=== PATIENT | male | born 1960 | race Two or more races ===

== ENCOUNTER 2022-02-15 11:53 | Outpatient (REF) | payer MEDICARE, MEDICAID, SELFPAY ==
--- NOTE | ~2022-02-15 | XR_ITS ---
EXAMINATION: XR KNEE, RIGHT CLINICAL INFORMATION: Pain. COMPARISON: Right knee radiographs dated 1217. TECHNIQUE: Frontal, lateral and axial views of the right knee were submitted. FINDINGS: Bony alignment and mineralization are normal. The lateral, medial and patellofemoral joint space compartments are well-maintained. There is minimal peripheral osteophyte formation of the joint space compartment. There is no fracture, dislocation or right knee joint effusion. No foreign body is seen. XR/XR knee LT 3V IMPRESSION: 1. There is minimal osteoarthritic change of the medial joint space compartment of the right knee. 2. No fracture, dislocation or significant right knee joint effusion is seen. EXAMINATION: XR KNEE, LEFT CLINICAL INFORMATION: Pain. COMPARISON: Right knee radiographs dated 07/05/2018. TECHNIQUE: Frontal, lateral and axial views of the left knee were submitted. FINDINGS: Bony mineralization is normal. There is mild asymmetric narrowing of the medial joint space compartment, with peripheral osteophyte formation. The lateral and patellofemoral joint space compartments are well-maintained. There is a tiny peripheral osteophyte of the superior articular surface of the left patella. There is no fracture, dislocation or left knee joint effusion. No foreign body is seen. IMPRESSION: 1. There is very mild osteoarthritic change of the medial joint the left knee, and minimal osteoarthritic changes seen of the patellofemoral compartment. 2. No fracture, dislocation or significant left knee joint effusion is seen.
--- NOTE | ~2022-02-15 | XR_ITS ---
EXAMINATION: XR KNEE, RIGHT CLINICAL INFORMATION: Pain. COMPARISON: Right knee radiographs dated 1217. TECHNIQUE: Frontal, lateral and axial views of the right knee were submitted. FINDINGS: Bony alignment and mineralization are normal. The lateral, medial and patellofemoral joint space compartments are well-maintained. There is minimal peripheral osteophyte formation of the joint space compartment. There is no fracture, dislocation or right knee joint effusion. No foreign body is seen. XR/XR knee RT 3V IMPRESSION: 1. There is minimal osteoarthritic change of the medial joint space compartment of the right knee. 2. No fracture, dislocation or significant right knee joint effusion is seen. EXAMINATION: XR KNEE, LEFT CLINICAL INFORMATION: Pain. COMPARISON: Right knee radiographs dated 07/05/2018. TECHNIQUE: Frontal, lateral and axial views of the left knee were submitted. FINDINGS: Bony mineralization is normal. There is mild asymmetric narrowing of the medial joint space compartment, with peripheral osteophyte formation. The lateral and patellofemoral joint space compartments are well-maintained. There is a tiny peripheral osteophyte of the superior articular surface of the left patella. There is no fracture, dislocation or left knee joint effusion. No foreign body is seen. IMPRESSION: 1. There is very mild osteoarthritic change of the medial joint the left knee, and minimal osteoarthritic changes seen of the patellofemoral compartment. 2. No fracture, dislocation or significant left knee joint effusion is seen.
== END 2022-02-15 11:54 | disposition home or self-care (01) ==
LOC: HO.XRAY 11:53
PROVIDERS: PCP Internal Medicine Geriatric Medicine; Visit Provider Internal Medicine Geriatric Medicine
DX: M25.561 Pain in right knee (principal); M25.562 Pain in left knee
CPT/HCPCS: 73562

== ENCOUNTER 2022-03-01 11:22 | Emergency (ER) | payer MEDICARE, MEDICAID, SELFPAY ==
--- NOTE | ~2022-03-01 | XR_ITS ---
EXAMINATION: XR RIBS, BILATERAL CLINICAL INFORMATION: Fall with rib pain COMPARISON: CTA of November 10, 2016 and chest x-ray of January 03, 2016 TECHNIQUE: 3 views of the bilateral ribs were obtained. PA chest FINDINGS: There is a calcified granuloma seen within the right midlung. There is no evidence of acute parenchymal disease, pneumothorax, or pleural effusion. Heart normal size. No evidence of pulmonary edema. No acute displaced rib fracture is identified. XR/XR ribs BI min 4V w CXR1V IMPRESSION: No acute parenchymal disease within the chest. No acute displaced rib fracture identified.
[2022-03-01 12:20] VITALS: BP 110/64; PULSE 65; RESP 16; TEMP 36.9; O2SAT 96; BMI 35.5
[2022-03-01] MEDS: Ketorolac Tromethamine 30 MG/ML VIAL IM (13:45)
[2022-03-01] MEDS: Lidocaine 4 % Patch ADH..PATCH 1 PATCH TRANSDERMA (13:45)
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
== END 2022-03-01 15:31 | disposition home or self-care (01) ==
PROVIDERS: Emergency Provider Emergency Medicine Emergency Medical Services; PCP Internal Medicine Geriatric Medicine
DX: S20.212A Contusion of left front wall of thorax, initial encounter (principal); R07.81 Pleurodynia; W01.0XXA Fall on same level from slipping, tripping and stumbling without subsequent striking against object, initial encounter; Y93.9 Activity, unspecified; Y92.9 Unspecified place or not applicable; Y99.9 Unspecified external cause status; Z79.899 Other long term (current) drug therapy
CPT/HCPCS: 71111; 96372; 99283; 99284; J1885

== ENCOUNTER 2022-05-18 10:16 | Outpatient (REF) | payer MEDICARE, MEDICAID, SELFPAY ==
--- NOTE | ~2022-05-18 | XR_ITS ---
EXAMINATION: XR hand RT min 3V, XR hand LT min 3V CLINICAL INFORMATION: Reason for Exam PAIN COMPARISON: 03/11/2018 TECHNIQUE: 3 views of the bilateral hands XR/XR hand LT min 3V FINDINGS/IMPRESSION: * Punctate calcification along the dorsal aspect of the right wrist may reflect degenerative change versus a triquetral fracture. Correlate with point tenderness * Severe narrowing of the right radiocarpal joint with osteophytosis, progressed from prior study. * Severe degenerative changes of the left first CMC joint. * No soft tissue abnormality.
--- NOTE | ~2022-05-18 | XR_ITS ---
EXAMINATION: XR hand RT min 3V, XR hand LT min 3V CLINICAL INFORMATION: Reason for Exam PAIN COMPARISON: 03/11/2018 TECHNIQUE: 3 views of the bilateral hands XR/XR hand RT min 3V FINDINGS/IMPRESSION: * Punctate calcification along the dorsal aspect of the right wrist may reflect degenerative change versus a triquetral fracture. Correlate with point tenderness * Severe narrowing of the right radiocarpal joint with osteophytosis, progressed from prior study. * Severe degenerative changes of the left first CMC joint. * No soft tissue abnormality.
== END 2022-05-18 10:17 | disposition home or self-care (01) ==
LOC: HO.XRAY 10:16
PROVIDERS: PCP Internal Medicine Geriatric Medicine; Visit Provider Internal Medicine Geriatric Medicine
DX: M79.641 Pain in right hand (principal); M79.642 Pain in left hand
CPT/HCPCS: 73130

== ENCOUNTER 2022-05-18 10:47 | Emergency (ER) | payer OTHER, MEDICAID, MEDICARE, SELFPAY ==
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
[2022-05-18 12:21] VITALS: BP 125/80; PULSE 70; RESP 16; TEMP 36.6; O2SAT 97; BMI 36.2
[2022-05-18] MEDS: Acetaminophen 325 MG TABLET 650 MG PO (12:29)
[2022-05-18 15:45] VITALS: BP 126/75; PULSE 66; RESP 18; TEMP 36.1; O2SAT 95
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
[2022-05-18] MEDS: Ibuprofen 600 MG TABLET PO (19:28)
== END 2022-05-18 20:46 | disposition home or self-care (01) ==
PROVIDERS: Emergency Provider Emergency Medicine; PCP Internal Medicine Geriatric Medicine
DX: S13.4XXA Sprain of ligaments of cervical spine, initial encounter (principal); S39.012A Strain of muscle, fascia and tendon of lower back, initial encounter; M54.2 Cervicalgia; V43.52XA Car driver injured in collision with other type car in traffic accident, initial encounter; Y93.9 Activity, unspecified; Y92.410 Unspecified street and highway as the place of occurrence of the external cause; Y99.9 Unspecified external cause status
CPT/HCPCS: 72040; 72100; 99283

== ENCOUNTER 2022-10-05 17:44 | Outpatient (REF) | payer MEDICARE, MEDICAID, SELFPAY ==
--- NOTE | ~2022-10-05 | MR_ITS ---
EXAMINATION: MR KNEE WITHOUT CONTRAST, RIGHT CLINICAL INFORMATION: Chronic instability, pain. COMPARISON: Radiographs 02/15/2022. TECHNIQUE: MRI of the knee without contrast was performed using routine sequences on a high-field scanner. FINDINGS: MENISCI: Medial Meniscus: Ill-defined degenerative partial tearing at the root of the posterior horn and mild inner margin tearing of the posterior horn extending to the meniscal body which is extruded. There is a 1.1 cm meniscal fragment or loose body between the medial femoral condyle and PCL. Lateral Meniscus: Intact. LIGAMENTS: Cruciate: Intact. Collateral: Intact. EXTENSOR MECHANISM: Intact. ARTICULAR CARTILAGE/BONE: Patellofemoral Compartment: Partial-thickness cartilage loss of the central trochlea and areas of mild cartilage thinning and surface irregularity of the patella. Marginal osteophytes. Medial Compartment: Cartilage thinning and surface irregularity with areas of near full-thickness loss throughout the weightbearing aspect with marginal osteophytes. Small subchondral cysts and marrow edema of the posterior nonweightbearing femoral condyle. Lateral Compartment: Small marginal osteophytes. JOINT FLUID AND BURSAE: Moderate joint effusion with mild synovitis. MR/MR knee RT wo con IMPRESSION: 1. Ill-defined degenerative partial tearing at the root of the posterior horn of the medial meniscus and mild inner margin tearing of the posterior horn extending to the meniscal body which is extruded. 2. Moderate medial and mild patellofemoral/lateral compartment osteoarthritis. Moderate joint effusion.
== END 2022-10-05 17:45 | disposition home or self-care (01) ==
LOC: HO.MRI 17:44
PROVIDERS: PCP Internal Medicine Geriatric Medicine; Visit Provider Internal Medicine Geriatric Medicine
DX: M23.51 Chronic instability of knee, right knee (principal)
CPT/HCPCS: 73721

== ENCOUNTER → 2023-01-31 09:02 | Outpatient (BNVA) | payer MEDICARE, MEDICAID, SELFPAY | PROVIDERS: PCP Internal Medicine Geriatric Medicine; Visit Provider Orthopaedic Surgery | DX: S83.241A Other tear of medial meniscus, current injury, right knee, initial encounter (principal) | CPT/HCPCS: 99202 ==

== ENCOUNTER 2023-02-27 09:45 | Outpatient (REF) | payer MEDICARE, MEDICAID, SELFPAY ==
--- NOTE | ~2023-02-27 | XR_ITS ---
EXAMINATION: XR WRIST, RIGHT CLINICAL INFORMATION: Pain COMPARISON: April 2022 TECHNIQUE: PA, lateral, and oblique views of the right wrist. FINDINGS: There is persistent narrowing of radiocarpal joint medially and there is cystic spaces in the scaphoid. No evidence of fractures or progression of changes of osteoarthritis. XR/XR wrist RT min 3V IMPRESSION: Osteoarthritis in the medial compartment of radiocarpal joint on the right
== END 2023-02-27 09:46 | disposition home or self-care (01) ==
LOC: HO.HOSX 09:45
PROVIDERS: Visit Provider Orthopaedic Surgery
DX: M19.031 Primary osteoarthritis, right wrist (principal)
CPT/HCPCS: 73110

== ENCOUNTER 2023-02-27 09:45 | Outpatient (AMB) | payer MEDICARE, MEDICAID, SELFPAY ==
[2023-02-27 09:52] VITALS: BMI 37.7
--- NOTE | 2023-02-27 09:52 | A.OFFVIS_ITS ---
Intake Vital Signs 02/27/23 09:52 Height 5 ft 11 in Weight 270 lb BMI 37.7 Intake Visit Reasons: New problem- Trigger finger Rt Intake Note: Sebastien 62 yr old left hand dominant male presents today for a new problem visit for his right index and middle finger locking. States his fingers started to lock about 2 yrs ago and has worsen with time. States he has pain when it locks at his MC. Patient has tried topical pain cream and wears a splint as needed. Also he is having numbness and tingling that worsens at night and has intermittent numbness through out the day. Patient would like to discuss injection vs surgical intervention. No EMG done. Allergies penicillin G [Penicillin G] Allergy (Mild, Verified 02/27/23 10:01) POSITIVE SKIN TEST penicillin V Allergy (Unknown, Verified 02/27/23 10:01) Unknown HPI New problem- Trigger finger Rt HPI Details Sebastien is a 62 year old right hand dominant [place] speaking man who presents with complaints of right wrist pain Initially he presented with complaints of painful locking of his fingers, but when asked today he was unable to specify which fingers were locking, and he was not able to make them lock today in clinic. Upon further discussion this sounds more like stiffness in his fingers mostly in the mornings. He complains of pain in his right wrist with activity, as well as a bump on the dorsal aspect of his wrist that is somewhat tender. He also complains of numbness and tingling in both of his hands. Symptoms intermittent, but daily, worse at night and first thing in the morning. 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 Review of Systems Const All systems reviewed & are unremarkable except as noted in HPI and below Physical Exam Vital Signs: BMI result Body Mass Index 37.7 Const General: cooperative, healthy appearing and no acute distress Orientation/consciousness: patient oriented x3 HEENT Head: Yes normocephalic and Yes atraumatic Eyes EOM: EOMs intact bilaterally Resp Effort & Inspection: normal respiratory effort and able to speak in complete sentences Cardio Jugular venous distension: no JVD Skin General skin exam: turgor normal Rashes: no rashes Neuro General: patient oriented x3 Extrem Other: Evaluation of Right Upper Extremity: The patient is alert, oriented, and in no acute distress Neuro: Median, Ulnar, Radial nerves motor and sensory grossly intact and sensation is normal to the tips of all digits today in clinic No thenar or intrinsic wasting Good APB muscle belly firing and good finger cross Vascular: Cap refill brisk ROM: He can make a fist and extend all of his digits bilaterally and had no locking or catching. He has ~15-20 degrees wrist extension He has ~35 degrees wrist flexion Skin: No lacerations or abrasions. General: No Ecchymosis. No Erythema or evidence of infection. There is a bump her some swelling over the dorsal aspect of his right wrist. It is unclear whether this is a ganglion, or perhaps some synovitis from an underlying wrist issue. Radiographs: Three views of the right hand from 05/18/2022 were reviewed by me today in clinic. Most note zeenat appears to have a scaphoid fracture nonunion with significant radiocarpal arthritis in the radial portion of the radioscaphoid joint in other words he has a SNAC wrist deformity. He has also got some early basal joint arthritis, and D IP joint arthritis particularly in the right index finger. Three views of the left hand from 05/18/2022 were also reviewed by me today in clinic. Most no were the is his left basal joint osteoarthritis with near complete loss of the basal joint, subluxation, subchondral sclerosis and osteophyte formation. He has more mild generalized arthritic changes in the MCP and IP joints of both hands. 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 Bilateral hand numbness and tingling Symptoms intermittent, but daily, worse at night I ordered a NCS to assess for peripheral neuropathy vs cervical radiculopathy He will follow up when completed for review 2. Right SNAC wrist deformity Evidence of an old scaphoid non-union with wrist OA 3. Left Basal joint osteoarthritis Near complete loss of joint space 4. Generalized Bilateral hand osteoarthritis In multiple MCP & IP joints, fairly mild I educated him about these condition I ordered radiographs of his right wrist today for review We can discuss this at his next appointment Scribed for Aisha Payton MD by Rudy Dias, medical massage therapist, on 02/27/23 at 10:40 AM, EST. 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
== END 2023-02-27 10:52 | disposition home or self-care (01) ==
PROVIDERS: Visit Provider Orthopaedic Surgery
DX: M19.041 Primary osteoarthritis, right hand (principal); M19.042 Primary osteoarthritis, left hand; M19.131 Post-traumatic osteoarthritis, right wrist; S62.001K Unspecified fracture of navicular [scaphoid] bone of right wrist, subsequent encounter for fracture with nonunion; M18.12 Unilateral primary osteoarthritis of first carpometacarpal joint, left hand
CPT/HCPCS: 99213

== ENCOUNTER 2023-03-07 12:57 | Outpatient (REF) | payer MEDICARE, MEDICAID, SELFPAY ==
--- NOTE | 2023-03-07 | EMG_ITS ---
Please see EMG / Nerve Conduction Report. MTDD
--- NOTE | 2023-03-07 14:50 | P.EMGPH_ITS ---
Physiatry - EMG/NCS EMG/NCS Chief complaint: Bilateral hand numbness for the last 1-2 years especially at night Reason for referral: Evaluate for neuropathy versus radiculopathy Referred by: Dr. Payton Procedure done: Bilateral upper extremities nerve conduction Precautions and/or limitations: History of diabetes with chronic numbness of both hands and feet The limb temperature was monitored continuously and remained between 32-36 degrees C during the performance of the NCS. FINDINGS: Bilateral median motor nerves showed prolonged distal latency, small amplitude but normal conduction velocity. Bilateral median and ulnar sensory nerves showed absent responses. All other nerves tested were within normal. No conduction block on ulnar nerves at the elbow. Radial sensory nerves were within normal. Nerve Conduction Studies Anti Sensory Summary Table ?Stim Site NR Onset (ms) Norm Onset (ms) Peak (ms) Norm Peak (ms) O-P Amp (?V) Norm O-P Amp Site1 Site2 Delta-0 (ms) Dist (cm) Edgar (m/s) Norm Edgar (m/s) Left Median Anti Sensory (2nd Digit) Wrist NR <3.6 >10 Wrist 2nd Digit 14.0 Right Median Anti Sensory (2nd Digit) Wrist NR <3.6 >10 Wrist 2nd Digit 14.0 Left Radial Anti Sensory (Thumb) Forearm ? 2.0 2.3 <3.1 3.3 Forearm Thumb 2.0 0.0 Right Radial Anti Sensory (Thumb) Forearm ? 1.9 2.5 <3.1 12.9 Forearm Thumb 1.9 0.0 Left Ulnar Anti Sensory (5th Digit) Wrist NR <3.7 >15.0 Wrist 5th Digit 14.0 Right Ulnar Anti Sensory (5th Digit) Wrist NR <3.7 >15.0 Wrist 5th Digit 14.0 Motor Summary Table ?Stim Site NR Onset (ms) Norm Onset (ms) O-P Amp (mV) Norm O-P Amp iAmp (mV) Amp (1st) (%) Site1 Site2 Delta-0 (ms) Dist (cm) Edgar (m/s) Norm Edgar (m/s) Left Median Motor (Abd Poll Brev) Wrist ? 8.7 <3.9 1.4 >4.5 1.6 100.0 Wrist Abd Poll Brev 8.7 0.0 Elbow ? 12.3 2.1 2.1 150.0 Elbow Wrist 3.6 20.0 56 >45 Right Median Motor (Abd Poll Brev) Wrist ? 6.1 <3.9 2.7 >4.5 3.4 100.0 Wrist Abd Poll Brev 6.1 0.0 Elbow ? 9.1 4.2 5.2 155.6 Elbow Wrist 3.0 21.0 70 >45 Left Ulnar Motor (Abd Dig Minimi) Wrist ? 3.0 <3.0 7.7 >5 9.5 100.0 Wrist Abd Dig Minimi 3.0 0.0 B Elbow ? 6.5 7.0 9.3 90.9 B Elbow Wrist 3.5 16.0 46 >45 A Elbow ? 8.0 7.4 9.8 96.1 A Elbow B Elbow 1.5 10.0 67 >45 Right Ulnar Motor (Abd Dig Minimi) Wrist ? 2.8 <3.0 5.2 >5 6.5 100.0 Wrist Abd Dig Minimi 2.8 0.0 B Elbow ? 6.5 3.1 3.8 59.6 B Elbow Wrist 3.7 18.5 50 >45 A Elbow ? 8.4 3.2 4.2 61.5 A Elbow B Elbow 1.9 10.0 53 >45 IMPRESSION: 1. This is an abnormal study. 2. There is electrodiagnostic suggestive for bilateral moderate-severe median neuropathy at the wrist. 3. Ulnar sensory nerves were absent but there was no conduction block across the elbow. CLINICAL COMMENT: Consider lower extremity testing to rule out polyneuropathy. Thank you for your kind referral. Brunilda Choi MD, CHER Board Certified, [place] Board of Physical Medicine and Rehabilitation (ABPMR) Board Certified, [place] Board of Electrodiagnostic Medicine (ABEM)
== END 2023-03-07 12:58 | disposition home or self-care (01) ==
LOC: HO.NEURO 12:57
PROVIDERS: PCP Internal Medicine Geriatric Medicine; Visit Provider Orthopaedic Surgery
DX: R20.0 Anesthesia of skin (principal); R20.2 Paresthesia of skin
CPT/HCPCS: 95907; 95911

== ENCOUNTER 2023-03-30 09:46 | Outpatient (REF) | payer MEDICARE, MEDICAID, SELFPAY ==
[2023-03-30 12:25] LABS: Creatinine Urine 163.76 mg/dL; Microalbum/Creatinine Ratio Ur 29.3 ug/mg cr (<30)
[2023-03-30 12:31] LABS: Alanine Aminotransferase 16 U/L (0-40); Albumin Level 4.2 g/dL (3.5-5.0); Alkaline Phosphatase 57 U/L (39-117); Anion Gap 13 (12-20); Aspartate Amino Transferase 23 U/L (5-37); Bilirubin Direct 0.2 mg/dL (0.0-0.5); Bilirubin Total 0.7 mg/dL (0.0-1.0); Blood Urea Nitrogen 21 mg/dL (9-16); Calcium 9.8 mg/dL (8.4-10.2); Carbon Dioxide 30 mmol/L (22-29); Chloride 101 mmol/L (96-108); Cholesterol 138 mg/dL (<200); Estimated Glomerular Filt Rate > 60; Glucose Random 87 mg/dL (60-115); HDL Cholesterol 41 mg/dL (>40); LDL Cholesterol Calculated 76 mg/dL (<100); Potassium 4.1 mmol/L (3.3-5.1); Sodium 140 mmol/L (135-145); Total Protein 7.9 g/dL (6.5-8.0); Triglycerides 105 mg/dL (<150)
== END 2023-03-30 09:47 | disposition home or self-care (01) ==
LOC: HO.HHCL 09:46
PROVIDERS: Visit Provider Internal Medicine Geriatric Medicine
DX: E11.9 Type 2 diabetes mellitus without complications (principal); R45.7 State of emotional shock and stress, unspecified; Z79.4 Long term (current) use of insulin
CPT/HCPCS: 36415; 80048; 80061; 80076; 82043; 82570

== ENCOUNTER → 2023-09-25 09:52 | Outpatient (REF) | payer MEDICARE, MEDICAID, SELFPAY | LOC: HO.SL 09:52 | PROVIDERS: PCP Registered Nurse; Visit Provider Registered Nurse | DX: G47.33 Obstructive sleep apnea (adult) (pediatric) (principal) | CPT/HCPCS: 95806 ==

== ENCOUNTER → 2023-09-25 19:00 | Outpatient (BNV) | payer MEDICARE, MEDICAID, SELFPAY | PROVIDERS: PCP Registered Nurse; Visit Provider Internal Medicine | DX: G47.33 Obstructive sleep apnea (adult) (pediatric) (principal) | CPT/HCPCS: 95806 ==

== ENCOUNTER 2023-10-10 16:30 | Outpatient (REF) | payer MEDICARE, MEDICAID, SELFPAY ==
[2023-10-10 19:01] LABS: Alanine Aminotransferase 20 U/L (0-40); Albumin Level 4.4 g/dL (3.5-5.0); Alkaline Phosphatase 70 U/L (39-117); Anion Gap 16 (12-20); Aspartate Amino Transferase 24 U/L (5-37); Bilirubin Total 0.5 mg/dL (0.0-1.0); Blood Urea Nitrogen 22 mg/dL (9-16); Carbon Dioxide 32 mmol/L (22-29); Chloride 99 mmol/L (96-108); Estimated Glomerular Filt Rate > 60; Glucose Random 90 mg/dL (60-115); Potassium 3.8 mmol/L (3.3-5.1); Sodium 143 mmol/L (135-145); Total Protein 8.6 g/dL (6.5-8.0)
== END 2023-10-10 16:31 | disposition home or self-care (01) ==
LOC: HO.HHCL 16:30
PROVIDERS: Visit Provider Registered Nurse
DX: E11.65 Type 2 diabetes mellitus with hyperglycemia (principal)
CPT/HCPCS: 36415; 80053

== ENCOUNTER 2023-11-09 10:46 | Outpatient (REF) | payer MEDICARE, MEDICAID, SELFPAY ==
--- NOTE | ~2023-11-09 | XR_ITS ---
EXAMINATION: XR KNEE, LEFT CLINICAL INFORMATION: Chronic pain of both knees COMPARISON: 02/15/2022 left knee TECHNIQUE: Four views of the left knee. FINDINGS: No fracture or significant joint effusion. Alignment is anatomic. There is moderate to marked narrowing of the medial joint compartment and mild narrowing of the patellofemoral joint compartment with associated marginal osteophytes. No abnormal soft tissue calcification. XR/XR knee LT 4V IMPRESSION: Moderate to marked osteoarthritis of the medial joint compartment and mild osteoarthritis of the patellofemoral joint compartment.
--- NOTE | ~2023-11-09 | XR_ITS ---
EXAMINATION: XR KNEE, RIGHT CLINICAL INFORMATION: Chronic pain of both knees COMPARISON: None available. TECHNIQUE: Four views of the right knee. FINDINGS: The bones are intact. No fracture. Large knee joint effusion. There is moderate to marked narrowing of the medial joint compartment with associated marginal osteophytes. No abnormal soft tissue calcification. XR/XR knee RT 4V IMPRESSION: 1. Moderate to marked osteoarthritis of the medial joint compartment. 2. Large knee joint effusion.
== END 2023-11-09 10:47 | disposition home or self-care (01) ==
LOC: HO.HHCX 10:46
PROVIDERS: Visit Provider Internal Medicine Geriatric Medicine
DX: M25.561 Pain in right knee (principal); M25.562 Pain in left knee; G89.29 Other chronic pain
CPT/HCPCS: 73564

== ENCOUNTER 2023-11-27 09:24 | Outpatient (REF) | payer MEDICARE, MEDICAID, SELFPAY ==
--- NOTE | 2023-11-27 09:27 | EEG_ITS ---
Bilateral median and ulnar motor and sensory studies were performed. Bilateral radial sensory study was performed and needle examination was performed. IMPRESSION: 1. 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 2. [id number] left ulnar neuropathy across cubital tunnel. 3. Mild right ulnar sensory neuropathy. MD DAIJA Prather/ASIF / [id number]
== END 2023-11-27 09:25 | disposition home or self-care (01) ==
LOC: HO.NEURO 09:24
PROVIDERS: PCP Internal Medicine Geriatric Medicine; Visit Provider Internal Medicine Geriatric Medicine
DX: G56.03 Carpal tunnel syndrome, bilateral upper limbs (principal); R20.0 Anesthesia of skin; R20.2 Paresthesia of skin
CPT/HCPCS: 95886; 95911

== ENCOUNTER 2024-02-08 09:15 | Outpatient (AMB) | payer MEDICARE, MEDICAID, SELFPAY ==
--- NOTE | 2024-02-08 09:23 | A.OFFVIS_ITS ---
Vital Signs 02/08/24 09:31 Handedness Left Intake Visit Reasons: O/V B/L hand EMG review Intake Note: Sebastien is a 63 year old left hand dominant male who presents today for a new problem visit of his bilateral hand numbness. EMG done on 11/27/23. Right worse than left. Patient reports his symptoms worsen at night and when he wakes up in the morning he has severe numbness, tingling and pain. He finds discomfort with gripping, grasping, and lifting when he is having these pains. He would like to discuss surgery today if needed. Manager Imaging Required: Yes Manager Imaging Language: Supervisor [employer] Name: [id number] Allergies penicillin G [Penicillin G] Allergy (Mild, Verified 02/27/23 10:01) POSITIVE SKIN TEST penicillin V Allergy (Unknown, Verified 02/27/23 10:01) Unknown HPI HPI O/V B/L hand EMG review : Details: Patient is a 63-year-old male left hand dominant who presents for evaluation of bilateral pain, numbness and tingling in his hands with EMG. Patient reports this has been ongoing for 4-5 months. The patient reports that his symptoms are intermittent, but daily, worse at night and upon waking in the AM. The patient reports that symptoms worsen with repeated gripping, lifting and grasping. The patient reports that symptoms are worse on the R side. The patient previously had EMG done on 11/27/[address] Boyd, which revealed bilateral carpal tunnel, and L sided cubital tunnel, along with R sided ulnar sensory neuropathy with no evidence of cubital tunnel. 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 Neuro: Median, ulnar, radial nerves motor and sensory intact and sensation is normal to the tips of all digits bilaterally. Vascular: Cap refill brisk Pain: Patient reports no pain or tenderness to palpation at this time ROM: ROM of bilateral hands full and intact at this time Able to make a closed fist bilaterally Good finger cross bilaterally Skin: No lacerations or abrasions. General: No ecchymosis, erythema, or evidence of infection. Positive Tinel's test at the wrist bilaterally Psych: Appears grossly normal Affect normal Attitude cooperative Results Reviewed Results Reviewed: MPRESSION: 1. 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 2. Znqm-fl-[id number] left ulnar neuropathy across cubital tunnel. 3. Mild right ulnar sensory neuropathy. Assessment & Plan Assessment & Plan (1) Carpal tunnel syndrome on both sides: Code(s): G56.03 - Carpal tunnel syndrome, bilateral upper limbs Category: Medical (2) Cubital tunnel syndrome on right: Code(s): G56.21 - Lesion of ulnar nerve, right upper limb Category: Medical Plan 1. Carpal tunnel syndrome, right 2. Cubital tunnel syndrome, right Symptoms intermittent, but daily, worse at night Patient reports that R side symptoms are worse, however there is evidence of cubital tunnel on the L side, and he would like to proceed with L sided carpal tunnel and cubital tunnel releases I educated the patient about the condition. I discussed both operative and nonoperative treatment options. The patient would like to proceed with surgery. The risks and benefits of operative treatment were discussed with the patient and the patient wishes to proceed with surgery. These risks include, but are not limited to, risk of damage to blood vessels, nerves, tendons, infection, recurrence, incomplete relief of preoperative symptoms, persistent pain, possible need for further surgery, and the risks associated with regional blocks and/or anesthesia. Plan is to take the patient to the operating room at some point in the next few weeks for the following procedures: 1. R cubital tunnel release 2. R carpal tunnel release under general anesthesia All of the preoperative paperwork including the consent was discussed today. All of the patient's questions were answered in the clinic today. The patient understands that they will be in contact with our surgical sales representative to discuss scheduling their procedure. Patient reports diabetes, but has been well controlled with diet for some time. Patient will call PCP for A1c lab draw, and will call with results. Denies blood thinners, asthma, heart issues, lung issues, kidney issues, or current smoking. 3. L Carpal Tunnel syndrome Symptoms intermittent, but daily, worse at night Patient would like to explore operative treatment of L CTS after he has begun recovery from R sided surgery Patient will follow up prior to surgery date for pre-operative assessment, sooner with any acute concerns EMG was reviewed with Dr. Choi, who discovered that the ulnar neuropathy consistent with cubital tunnel was on the right side, not the left. Dr. Boyd's office notified of this, if he would like to amend the impression of his NCS. Coding Level of Care Code Est Pt Level 4 (82659) Diagnoses Carpal tunnel syndrome on both sides G56.03 Cubital tunnel syndrome on right G56.21
== END 2024-02-08 10:25 | disposition home or self-care (01) ==
PROVIDERS: PCP Internal Medicine Geriatric Medicine
DX: G56.03 Carpal tunnel syndrome, bilateral upper limbs (principal); G56.21 Lesion of ulnar nerve, right upper limb
CPT/HCPCS: 99214

== ENCOUNTER → 2024-02-08 09:15 | Outpatient (BNVA) | payer MEDICARE, MEDICAID, SELFPAY | PROVIDERS: PCP Internal Medicine Geriatric Medicine; Visit Provider Orthopaedic Surgery | DX: G56.03 Carpal tunnel syndrome, bilateral upper limbs (principal); G56.21 Lesion of ulnar nerve, right upper limb | CPT/HCPCS: 99212 ==

== ENCOUNTER 2024-04-08 11:30 | Outpatient (AMB) | payer MEDICARE, MEDICAID, SELFPAY ==
--- NOTE | 2024-04-08 11:54 | MHC.OFFVIS ---
Vital Signs 04/08/24 11:58 Height 5 ft 11 in Weight 270 lb BMI 37.7 Intake Visit Reasons: Preop RT cubital/CTR 04/10/24 AR Intake Note: Sebastien is a 63 yo left hand dominant male who presents today preoperatively for a right carpal tunnel release as well as a right cubital tunnel release with Dr. Payton, DOS 04/10/24. Consent signed and all questions answered. Product Inspection Supervisor Required: Yes Product Inspection Supervisor Language: Lead Technologist In Cytogenetics Name: YOHANNES FariasA/LM Allergies penicillin G [Penicillin G] Allergy (Mild, Verified 04/08/24 11:59) POSITIVE SKIN TEST penicillin V Allergy (Unknown, Verified 04/08/24 11:59) Unknown HPI HPI Preop RT cubital/CTR 04/10/24 AR: Details: Sebastien is a 63 year old right hand dominant Diabetic Iranian speaking man who presents to discuss his left carpal tunnel syndrome. He complains of numbness to all digits of his left hand. Symptoms intermittent, but daily, worse with activities. He would like to discuss surgery. He also complains of numbness in the median nerve distribution of his right hand. This is not as bothersome as his left side He is a Diabetic which is well-controlled with diet. He does not know his HgA1c. 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 Normal sensation in the ulnar nerve distribution today in clinic No thenar or intrinsic wasting Good APB muscle belly firing and good finger cross Vascular: Cap refill brisk ROM: He can make a fist and extend all his digits No locking or catching Nerve Conduction study: IMPRESSION: 1. 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 2. Ebef-zf-[id number] left ulnar neuropathy across cubital tunnel. 3. Mild right ulnar sensory neuropathy. Shaw Boyd MD 11/27/2023 The NCS results were reviewed by Dr. Conklin in our clinic. Her impression is as follows from note by ESTEFANY Moran on 02/08/24 EMG was reviewed with Dr. Choi, who discovered that the ulnar neuropathy consistent with cubital tunnel was on the right side, not the left. Dr. Boyd's office notified of this, if he would like to amend the impression of his NCS. Psych Appearance: grossly normal Affect: normal affect Attitude: cooperative Assessment & Plan Assessment & Plan (1) Cubital tunnel syndrome on right: Code(s): G56.21 - Lesion of ulnar nerve, right upper limb Category: Medical (2) Carpal tunnel syndrome on both sides: Code(s): G56.03 - Carpal tunnel syndrome, bilateral upper limbs Category: Medical (3) Numbness and tingling in left hand: Code(s): R20.0 - Anesthesia of skin; R20.2 - Paresthesia of skin Category: Medical (4) Diabetes mellitus: Code(s): E11.9 - Type 2 diabetes mellitus without complications Category: Medical Plan Assessment & Plan: 1. Left carpal tunnel syndrome, moderate-severe Symptoms intermittent, but daily, worse with activities 2. Left hand numbness In the ulnar nerve distribution Patient reports intermittent but daily numbness, but with further questioning he is unsure if he has frequent small finger numbness or not NCS results from 11/27/23 showed left cubital tunnel syndrome. However, as reviewed by Dr. Conklin on 02/08/24, the NCS results showed RIGHT cubital tunnel syndrome, with no left cubital tunnel syndrome, according to note by ESTEFANY Moran on 02/08/24. I educated him about this condition I discussed operative and non-operative treatment options The patient would like to proceed with surgery, beginning with the left side. I talked with the patient about the question of left-sided cubital tunnel syndrome or not. It really comes down to whether or not he is symptomatic. He will take time to assess if his does have numbness in his left small finger, and if he does not then we may cancel the cubital tunnel release and proceed with just a carpal tunnel release under local anesthesia. The risks and benefits of operative treatment were discussed with the patient and the patient wishes to proceed with surgery. These risks include, but are not limited to risk of damage to blood vessels, nerves, tendons, infection, recurrence, incomplete relief of preoperative symptoms, persistent pain, possible need for further surgery and the risks associated with regional blocks and anesthesia. The plan is to take the patient to the operating room sometime in the next few weeks for the following procedures: 1. Left carpal tunnel release, under general 2. Left cubital tunnel release, under general All of the preoperative paperwork including the consent was reviewed today. All the patient's questions were answered. The patient understands that they will be contacted by our engineer fishing vessel soon to schedule this procedure. He was initially scheduled for surgery on 04/10/24, but says no one told him he had surgery already scheduled, and he will not be available for surgery this date. He would like to reschedule He denies blood thinners, asthma, heart, lung, kidney issues Patient reports diabetes, but has been well controlled with diet for some time. No HgA1c on file He will follow up for a new pre-op appointment to discuss this. 3. Right carpal tunnel syndrome, moderate-severe Symptoms intermittent, but daily, worse with activities 4. Right cubital tunnel syndrome, mild-moderate Symptoms intermittent, but daily, worse with activities We will discuss treatment for his right side when he has recovered from surgery Scribed for Aisha Payton MD by Rudy Dias medical management trainer, on 04/08/24 at 12:05 PM, EST. Coding Level of Care Code Est Pt Level 4 (47675) Diagnoses Cubital tunnel syndrome on right G56.21 Carpal tunnel syndrome on both sides G56.03 Numbness and tingling in left hand R20.0; R20.2 Diabetes mellitus E11.9
[2024-04-08 11:58] VITALS: BMI 37.7
== END 2024-04-08 12:18 | disposition home or self-care (01) ==
PROVIDERS: PCP Internal Medicine Geriatric Medicine; Visit Provider Orthopaedic Surgery
DX: G56.21 Lesion of ulnar nerve, right upper limb (principal); G56.03 Carpal tunnel syndrome, bilateral upper limbs; E11.9 Type 2 diabetes mellitus without complications
CPT/HCPCS: 99024

== ENCOUNTER → 2024-04-08 11:30 | Outpatient (BNVA) | payer MEDICARE, MEDICAID, SELFPAY | PROVIDERS: PCP Internal Medicine Geriatric Medicine; Visit Provider Orthopaedic Surgery | DX: G56.21 Lesion of ulnar nerve, right upper limb (principal); G56.03 Carpal tunnel syndrome, bilateral upper limbs; E11.9 Type 2 diabetes mellitus without complications; R20.0 Anesthesia of skin; R20.2 Paresthesia of skin | CPT/HCPCS: 99212 ==

== ENCOUNTER 2024-06-04 10:46 | Outpatient (AMB) | payer MEDICARE, MEDICAID, SELFPAY ==
[2024-06-04 10:51] VITALS: BMI 37.7
--- NOTE | 2024-06-04 10:51 | A.OFFVIS_ITS ---
Vital Signs 06/04/24 10:51 Height 5 ft 11 in Weight 270 lb BMI 37.7 Intake Visit Reasons: Pre-Lt Cubital, Lt CTR 06/09/24 Intake Note: Sebastien is a 63 year old left hand dominant male who presents today for a pre operative visit. Patient will be having left carpal tunnel and possible cubital tunnel release on 06/09/[address] Payton. Statistical Assistant Required: Yes Statistical Assistant Language: Certified Cytotechnologist Services: Statistical Assistant Present Statistical Assistant Name: DinoraMATHEW/MURPHY Information Interpreted: clinical only Allergies penicillin G [Penicillin G] Allergy (Mild, Verified 06/04/24 10:51) POSITIVE SKIN TEST penicillin V Allergy (Unknown, Verified 06/04/24 10:51) Unknown HPI HPI Pre-Lt Cubital, Lt CTR 06/09/24: Details: Patient is a 63-year-old male presents for preoperative evaluation for cubital and carpal tunnel releases, DOS 06/09/[address] Payton. The patient states that while he was originally signed up for a left carpal and cubital tunnel release, he would like to change this to the right side, as he finds this side more bothersome and he also does not notice any numbness or tingling in the small finger of the right hand. Patient states that his symptoms have remained intermittent, daily, and worse at night. Patient states that his diabetes is still well-controlled with diet, and that the most elevated blood sugar he has had over the last 2 weeks has been 103. No other acute complaints or concerns at this time. 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 Diminished sensation in the ulnar nerve distribution today in clinic No thenar or intrinsic wasting Good APB muscle belly firing and good finger cross Vascular: Cap refill brisk ROM: He can make a fist and extend all his digits No locking or catching Nerve Conduction study: IMPRESSION: 1. 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 2. Ycrd-tt-[id number] left ulnar neuropathy across cubital tunnel. 3. Mild right ulnar sensory neuropathy. Shaw Boyd MD 11/27/2023 The NCS results were reviewed by Dr. Conklin in our clinic. Her impression is as follows from note by ESTEFANY Moran on 02/08/24 EMG was reviewed with Dr. Choi, who discovered that the ulnar neuropathy consistent with cubital tunnel was on the right side, not the left. Dr. Boyd's office notified of this, if he would like to amend the impression of his NCS. Psych Appearance: grossly normal Affect: normal affect Attitude: cooperative Assessment & Plan Assessment & Plan (1) Cubital tunnel syndrome on right: Code(s): G56.21 - Lesion of ulnar nerve, right upper limb Category: Medical (2) Carpal tunnel syndrome on both sides: Code(s): G56.03 - Carpal tunnel syndrome, bilateral upper limbs Category: Medical Plan 1. Right carpal tunnel syndrome 2. Right cubital tunnel syndrome Constant, daily, worse at night I educated the patient about the condition. I discussed both operative and nonoperative treatment options. The patient would like to proceed with surgery. The risks and benefits of operative treatment were discussed with the patient and the patient wishes to proceed with surgery. These risks include, but are not limited to, risk of damage to blood vessels, nerves, tendons, infection, recurrence, incomplete relief of preoperative symptoms, persistent pain, possible need for further surgery, and the risks associated with regional blocks and/or anesthesia. Plan is to take the patient to the operating room on 06/09/2024 for the following procedures: 1. right cubital tunnel release under general anesthesia 2. Right carpal tunnel release under general anesthesia All of the preoperative paperwork including the consent was discussed today. All of the patient's questions were answered in the clinic today. The patient understands that they will be in contact with our surgical consultant to discuss scheduling their procedure. Patient denies blood thinners, asthma, heart issues, lung issues, kidney issues, or current smoking. Coding Level of Care Code Est Pt Level 4 (35296) Diagnoses Cubital tunnel syndrome on right G56.21 Carpal tunnel syndrome on both sides G56.03
== END 2024-06-04 11:18 | disposition home or self-care (01) ==
LOC: HO.HOS 10:47
PROVIDERS: PCP Internal Medicine Geriatric Medicine
DX: G56.21 Lesion of ulnar nerve, right upper limb (principal); G56.03 Carpal tunnel syndrome, bilateral upper limbs
CPT/HCPCS: 99214

== ENCOUNTER → 2024-06-04 10:46 | Outpatient (BNVA) | payer MEDICARE, MEDICAID, SELFPAY | PROVIDERS: PCP Internal Medicine Geriatric Medicine | DX: Z01.818 Encounter for other preprocedural examination (principal); G56.21 Lesion of ulnar nerve, right upper limb; G56.03 Carpal tunnel syndrome, bilateral upper limbs | CPT/HCPCS: 99212 ==

== ENCOUNTER 2024-07-15 09:35 | Outpatient (REF) | payer MEDICARE, MEDICAID, SELFPAY ==
[2024-07-15 11:07] LABS: MANUAL DIFF FLAG NO
[2024-07-15 11:15] LABS: Basophils Absolute Auto 0.1 X10*3/uL (0.0-0.2); Basophils Percent Auto 0.9 % (0-2); Eosinophils Absolute Auto 0.2 X10*3/uL (0.0-0.4); Eosinophils Percent Auto 2.1 % (0-4); Hematocrit 42.8 % (42.0-52.0); Hemoglobin 13.9 g/dl (14.0-18.0); Imm Gran Abs Auto 0.05 X10*3/uL (0.00-0.03); Imm Gran Pct Auto 0.7 % (0.0-0.4); Lymphocytes Absolute Auto 1.6 X10*3/uL (1.2-4.9); Lymphocytes Percent Auto 21.2 % (20-40); Mean Corpuscular HGB Conc 32.5 g/dl (31.0-36.0); Mean Corpuscular Hemoglobin 31.4 pg (27.0-33.0); Mean Corpuscular Volume 96.6 fL (80.0-98.0); Mean Platelet Volume 10.2 fL (9.4-12.4); Monocytes Absolute Auto 0.7 X10*3/uL (0.1-1.2); Monocytes Percent Auto 9.6 % (2-11); Neutrophils Percent Auto 65.5 % (45-73); Platelet Count 351 X10*3/uL (160-400); Red Blood Count 4.43 X10*6/uL (4.60-5.80); Red Cell Distribution Width 11.9 % (11.0-16.0); White Blood Count 7.7 X10*3/uL (4.8-10.8)
[2024-07-15 11:27] LABS: Alanine Aminotransferase 21 U/L (0-40); Albumin Level 4.4 g/dL (3.5-5.0); Alkaline Phosphatase 60 U/L (39-117); Anion Gap 9 (12-20); Aspartate Amino Transferase 21 U/L (5-37); Bilirubin Total 0.6 mg/dL (0.0-1.0); Blood Urea Nitrogen 25 mg/dL (9-16); Calcium 9.7 mg/dL (8.4-10.2); Carbon Dioxide 36 mmol/L (22-29); Chloride 99 mmol/L (96-108); Cholesterol 148 mg/dL (<200); Estimated Glomerular Filt Rate > 60; Glucose Random 124 mg/dL (60-115); HDL Cholesterol 48 mg/dL (>40); LDL Cholesterol Calculated 75 mg/dL (<100); Potassium 3.6 mmol/L (3.3-5.1); Sodium 140 mmol/L (135-145); Total Protein 8.3 g/dL (6.5-8.0); Triglycerides 125 mg/dL (<150)
[2024-07-15 11:58] LABS: Microalbum/Creatinine Ratio Ur 72.8 ug/mg cr (<30)
== END 2024-07-15 09:36 | disposition home or self-care (01) ==
LOC: HO.HHCL 09:35
PROVIDERS: Visit Provider Internal Medicine Geriatric Medicine
DX: E11.9 Type 2 diabetes mellitus without complications (principal); I10 Essential (primary) hypertension; G47.33 Obstructive sleep apnea (adult) (pediatric)
CPT/HCPCS: 36415; 80053; 80061; 82043; 82570; 85025

== ENCOUNTER 2024-12-03 12:02 | Outpatient (REF) | payer MEDICARE, MEDICAID, SELFPAY ==
--- OUTSIDE RECORDS SUMMARY | 2024-12-03 13:20 | XMS_ITS | Encounter Summary ---
Author Organization [employer] Address [address] [place] [address] Care Team Providers Care Women'S Studies Professor Name Role Phone Name, Jaspreet SELLERS Primary Care Provider [phone] Reason for Visit * Reason Comments Med Refill Encounter Details Date Type Department Care Team ([facility] st Contact Info) Description 09/18/2024 Refill [facility] PEDS [address], [place] [phone] Va Gordon MD [address] [place] [address] Controlled type 2 diabetes mellitus without complication, with long-term current use of insulin ([facility]) Social History Tobacco Use Types Packs/Day Years Used Date Smoking Tobacco: Former Cigarettes Smokeless Tobacco: Never Alcohol Use Standard Drinks/Week Comments Never 0 (1 standard drink = 0.6 oz pur e alcohol) Depression Answer Date Recorded Patient Health Questionnaire-9 Score 0 10/10/2023 Patient Health Questionnaire-9 Score 0 10/10/2023 Last PHQ-9: Questionnaire Data Not on file 0 10/10/2023 Housing Stability Answer Date Recorded What is your housing situation today? I have henrique guzman 10/10/[address] you li ve. Do you have problems with any of the following? None of the above 10/10/2023 Food Insecurity Answer Date Recorded Within the past 12 months, y ou worried that your food would run out before you got money to buy more: Never True 10/10/2023 Within the past 12 months,th e food you bought just didn't last and you didn't have enough money to get more: Never True Transportation Answer Date Recorded In the past 12 months, has l ack of transportation kept you from medical appts, meetings, work or from getting things needed for daily living? No 10/10/2023 Utilities Answer Date Recorded In the past 12 months, has t he electric, gas, oil or water company threatened to shut off services in your home? No 10/10/2023 Depression Answer Date Recorded Patient Health Questionnaire-2 Score 0 10/10/2023 Sex and Gender Information Value Date Recorded Sex Assigned at Male 05/29/2022 10:18 AM EDT Legal Sex Male 10:18 AM EDT Gender Identity Male 05/29/2022 10:18 AM EDT Sexual Orientation Straight 05/29/2022 10 :18 AM EDT documented as of this encounter Plan of Treatment Not on file documented as of this encounter Visit Diagnoses Diagnosis Controlled type 2 diabetes mellitus without complication, with long-term current use of insulin ([facility]) documented in this encounter Additional Health Concerns Assessment Noted Time PHQ-9 Depression Total Score: 0 10/10/19 24 3:18 PM EDT documented as of this encounter Care Teams Women'S Studies Professor Relationship Specialty Start Date End Date Name, MD Jaspreet [address] [place] [address] PCP - General Family Medicine 08/25/15 documented as of this encounter
--- OUTSIDE RECORDS SUMMARY | 2024-12-03 13:20 | XMS_ITS | Encounter Summary ---
Author Organization [employer] Address [address] [address] [place] [address] Care Team Providers Care Hardboard Supervisor Name Role Phone Name, Jaspreet SELLERS Primary Care Provider [phone] Encounter Details Date Type Department Care Team (Late st Contact Info) Description 09/18/2024 Telephone [facility] MEDIC[facility] [address] [place], [place] [phone] Name, MD Jaspreet [address] [place], [place] [phone] Social History Tobacco Use Types Packs/Day Years [...] documented as of this encounter Visit Diagnoses Not on filedocumented in this encounter Additional Health Concerns Assessment Noted Time PHQ-9 Depression Total Score: 0 10/10/19 24 3:18 PM EDT documented as of this encounter Care Teams Hardboard Supervisor Relationship Specialty Start Date End Date Name, MD Jaspreet [address] [place] [address] PCP - General Family Medicine 08/25/15 documented as of this encounter
--- OUTSIDE RECORDS SUMMARY | 2024-12-03 13:20 | XMS_ITS | Clinical Summary ---
Author Organization [employer] Address [address] [facility] 7t [place] [address] Care Team Providers Care Grinding And Spraying Supervisor Name Role Phone Name, Jaspreet SELLERS Primary Care Provider [phone] Allergies Active Allergy Reactions Criticality Noted Date Comments Lisinopril Swelling 03/11/2021 Penicillins Hives,Rash Low 07/16/2009 Medications hydrocortisone 1 % cream Apply topically to affected area(s) two times daily 021 Active lidocaine-priloc say (Emla) 2.5-2.5 % cream apply to affected area four times daily as needed for pain 022 Active insulin pen needle (Comfort EZ Pen [place]) 32G x 4 mm misc USE TO INJECT INSULIN ONCE DAILY 100 each 1 024 Active metoprolol succinate XL (Toprol-XL) 100 MG 24 hr tabletIndication s:Hypercholester olemia TAKE 1 TABLET BY MOUTH ONCE DAILY 90 tablet 2 024 Active sildenafil (Viagra) 50 MG tabletIndication s:Type 2 diabetes mellitus without complication, unspecified whether longterm insulin use ([facility]) Take 1 tablet (50 mg) by mouth if needed for erectile dysfunction for up to 10 days. 10 tablet 3 024 Active Accu-Chek Guide test stripIndications :Type 2 diabetes mellitus without complications ([facility]) USE TO TEST FINGER STICK BLOOD SUGAR 4 (FOUR) TIMES DAILY 200 strip 11 024 Active metFORMIN (Glucophage) 500 MG tablet TAKE 1 TABLET BY MOUTH two (2) times a day (IN THE MORNING AND IN THE EVENING) 60 tablet 5 024 Active celecoxib (CeleBREX) 200 MG capsule TAKE 1 CAPSULE BY MOUTH two (2) times a day 40 capsule 5 024 Active Acetaminophen Extra Strength 500 MG tabletIndication s:Acute non intractable tension-type headache TAKE 2 TABLETS BY MOUTH EVERY 8 HOURS NEEDED FOR HEADACHE 30 tablet Active amLODIPine (Norvasc) 5 MG tabletIndication s:Benign essential hypertension TAKE 1 TABLET BY MOUTH EVERY MORNING 30 tablet Active DULoxetine (Cymbalta) [address] capsuleIndicatio ns:Chronic low back pain, unspecified back pain laterality, unspecified whether sciatica present TAKE 1 CAPSULE BY MOUTH ONCE DAILY 30 capsule Active gabapentin (Neurontin) 300 MG capsule Take 1 capsule (300 mg) by mouth 3 times daily. 90 capsule 2024 Active hydrALAZINE (Apresoline) 25 MG tabletIndication s:Benign essential hypertension TAKE 1 TABLET BY MOUTH two (2) times a day WITH A MEAL 60 tablet Active Diclofenac Sodium 1 % gelIndications:C arpal tunnel syndrome, unspecified laterality APPLY 2 gramos TOPICALLY two (2) times a day 100 g 1 025 Active Accu-Chek Softclix Lancets lancetsIndicatio ns:Type 2 diabetes mellitus without complications ([facility]) USE TO TEST FINGER STICK BLOOD SUGAR 4 (FOUR) TIMES DAILY 100 each 025 Active atorvastatin (Lipitor) 20 MG tabletIndication s:Hypercholester olemia TAKE 1 TABLET BY MOUTH ONCE DAILY 30 tablet 025 Active insulin glargine (Lantus SoloStar) 100 UNIT/ML penIndications:C ontrolled type 2 diabetes mellitus without complication, with long-term current use of insulin ([facility]) INJECT 30 UNITS SUBCUTANEOUSLY ONCE DAILY 9 mL 025 Active tamsulosin (Flomax) 0.4 MG 24 hr capsule TAKE 1 CAPSULE BY MOUTH ONCE DAILY IN THE MORNING 30 capsule 025 Active chlorthalidone (Hygroton) 25 MG tablet TAKE 1 TABLET BY MOUTH ONCE DAILY IN THE EVENING 30 tablet 025 Active Alcohol Swabs (Alcohol Pads) 70 % pads USE DIRECTED 4 (FOUR) TIMES DAILY 100 each 025 Active Alcohol Swabs (Alcohol Pads) 70 % pads USE DIRECTED 4 (FOUR) TIMES DAILY 100 each 5 024 2024 Discontinued Active Problems Problem Noted Date Diagnosed Date Controlled type 2 diabetes m ellitus without complication, with long-term current use of insulin 12/03/2024 Chronic abdominal pain 12/03/2024 Primary hypertension 09/21/2023 Assessment & Plan (09/21/2023 3:57 PM EST): Extensive counseling done about low Na diet and weight reduction done today I called his pharmacy and find out he is not taking one of his medications chlortalidone 25mg, medications wa just send again by PCP I advise to start taking it now I also explained his sleep apnea has to be treated to control his blood pressure and also it will help a lot with his headaches RTC 2 weeks with nurse for BP check then f/u with PCP Acute non intractable tension-type headache 08/31 Venous insufficiency of leg 08/01/2022 Basal cell carcinoma of skin 07/14/2022 Hypercholesterolemia 07/14/2022 Class 2 obesity 07/14/2022 Osteoarthritis of both knees 07/14/2022 Primary malignant neoplasm of perianal skin 06/29 Hyperglycemia due to type 2 diabetes mellitus Carpal tunnel syndrome 05/10/2018 Increased frequency of urination 05/23/2017 Insomnia 04/25/2017 Obstructive sleep apnea syndrome 01/15/2017 Simple renal cyst 09/20/2016 Non-cardiac chest pain 08/23/2016 Aneurysm of ascending aorta 01/18/2016 Degeneration of lumbosacral intervertebral disc 10/01/2015 Urethral stricture 10/01/2015 Chronic low back pain 10/01/2015 Resolved Problems Problem Noted Date Diagnosed Date Resolved Date Knee pain 07/05/2018 07/15/2024 Neck pain 10/26/2017 07/15/2024 Lung mass 08/23/2016 07/15/2024 Shoulder pain 10/01/2015 07/15/2024 Benign essential hypertension 10/01/2015 07/15/2024 Encounters Date Type Department Care Team Description 12/03/2024 11:15 AM EDT Office Visit [facility] [address] [place] [phone] Kindra Sinha FNP Controlled type 2 diabetes mellitus without complication, with long-term current use of insulin ([facility]) (Primary Dx); Chronic abdominal pain 12/03/2024 Travel 12/02/2024 Telephone [facility] [address] [place] [address] Kindra Sinha, CRUTCH MAKER CHART PREP 12/01/2024 Telephone [facility] MEDICINE [address] [place] [address] Jaspreet Sandoval MD nurse triage 11/20/2024 Refill [facility] [address] [place] [address] Annie Tobias NP 11/02/2024 Refill [facility] [address] [place] [address] Jaspreet Sandoval MD 10/28/2024 Patient Outreach [facility] [address] [place], [place] [phone] Jaspreet Sandoval MD Pre-visit Planning ([facility] unable to reach [facility]) 10/04/2024 Refill [facility] [address] [place] [address] Jaspreet Sandoval MD 09/18/2024 Telephone [facility] [address] [place] [address] Jaspreet Sandoval MD 09/18/2024 Telephone [facility] [address] [place] [address] Jaspreet Sandoval MD Medication Question 09/18/2024 Refill [facility] [address] [place] [address] Va Gordon MD Controlled type 2 diabetes mellitus without complication, with long-term current use of insulin (CMS/HCC) 09/17/2024 Refill [facility] [address] [place] [address] Jaspreet Sandoval MD Controlled type 2 diabetes mellitus without complication, with long-term current use of insulin (CMS/HCC) 09/16/2024 Refill [facility] MEDIC[facility] [address] [place] [address] Jaspreet Sandoval MD Controlled type 2 diabetes mellitus without complication, with long-term current use of insulin (CMS/HCC) 09/15/2024 Refill [facility] [address] [facility] [place] [address] Va Gordon MD Controlled type 2 diabetes mellitus without complication, with long-term current use of insulin ([facility]) 09/13/2024 Refill [facility] [address] [place] [address] Name, MD Jaspreet Hypercholesterolemia 09/10/2024 Refill [facility] [address], [place] [phone] Name, MD Jaspreet Type 2 diabetes mellitus without complications ([facility]) from Last 3 Months Immunizations Name Administration Dates Next Due Influenza injectable quadriv alent IIV4 with preservative 05/10/2018,04/25/2017,05/24/2016 Influenza injectable quadriv alent preservative free 07/13/2023,05/18/2022,04/29/2021,2018 Influenza, IIV3, injectable 04/16/2015,1 08/15/2013,04/18/2013,2011,06/13/2011,07/16/2009 Influenza, seasonal, injecta ble, preservative free 04/09/2024 Novel [id number], preservative-free 07/16/2009 Pfizer Covid-19 Vaccine 12+ 07/13/2023 Pneumococcal Conjugate PCV 20 03/30/2023 Tdap 10/31/2016 Zoster, Recombinant 02/15/2022,11/02/2021 Social History Tobacco Use Types Packs/Day Years Used Date Smoking Tobacco: Former Cigarettes Passive Smoke Exposure: Past Smokeless Tobacco: Never Tobacco Cessation:Counseling Given: Not Answered Alcohol Use Standard Drinks/Week Comments Never 0 (1 standard drink = 0.6 oz pur e alcohol) Depression Answer Date Recorded Patient Health Questionnaire-9 Score 9 12/03/2024 Patient Health Questionnaire-9 Score 9 12/03/2024 Last PHQ-9: Questionnaire Data Not on file 0 12/03/2024 Housing Stability Answer Date Recorded What is your housing situation today? I have henrique guzman 12/03/[address] you li ve. Do you have problems with any of the following? None of the above 12/03/2024 Food Insecurity Answer Date Recorded Within the past 12 months, y ou worried that your food would run out before you got money to buy more: Sometimes True 2024 Within the past 12 months,th e food you bought just didn't last and you didn't have enough money to get more: Sometimes True 12/03/2024 Transportation Answer Date Recorded In the past 12 months, has l ack of transportation kept you from medical appts, meetings, work or from getting things needed for daily living? No 12/03/2024 Utilities Answer Date Recorded In the past 12 months, has t he electric, gas, oil or water company threatened to shut off services in your home? No 12/03/2024 Depression Answer Date Recorded Patient Health Questionnaire-2 Score 2 12/03/2024 Internet Access Answer Date Recorded Internet Access Q1 Yes 12/03/2024 Internet Access Q2 Not on file 12/03/2024 Sex and Gender Information Value Date Recorded Sex Assigned at Male 05/29/2022 10:18 AM EDT Legal Sex Male 10:18 AM EDT Gender Identity Male 05/29/2022 10:18 AM EDT Sexual Orientation Straight 05/29/2022 10 :18 AM EDT Last Filed Vital Signs Vital Sign Reading Time Taken Comments Blood Pressure 128/84 12/03/2024 11:17 AM EDT Pulse 69 12/03/2024 11:17 AM EDT Temperature 36.4 ??C (97.6 ??F) 12/03/2024 11:17 AM E DT Respiratory Rate 18 12/03/2024 11:17 AM EDT Oxygen Saturation 94% 12/03/2024 11:17 AM EDT Inhaled Oxygen Concentration - - Weight 123 kg (270 lb 6 oz) 12/03/2024 11:17 AM EDT Height 180.3 cm (5' 11 ) 12/03/2024 11:17 AM EDT Body Mass Index 37.71 12/03/2024 11:17 AM EDT Plan of Treatment Health Maintenance Due Date Last Done Comments CT Colonography 1960 FIT DNA/Cologuard 1960 FIT 1960 FOBT 1960 HIV Screening 1960 Sigmoidoscopy 1960 Derm Melanoma Skin Check 1960 Eye Exam 1970 Hepatitis C Screening 1978 RSV Patients and Patients Aged 60 years or older (1 - Risk 60-74 years 1-dose series) 2020 COVID-19 Vaccine ( season) 2024 07/13/2023, 07/21/2021, 12/22/2020, Additional history exists Diabetes: Foot Exam 07/13/2024 07/13/2023, 07/13/2023, 07/13/2023, Additional history exists Diabetes: Hemoglobin A1C 06/05/2025 025, 04/09/2024, 11/09/2023, Additional history exists Diabetes: Urine Protein Screening 07/15/2025 07/15/2024, 03/30/2023, 09/15/2022, Additional history exists Lipid Panel 07/15/2025 07/15/2024, 09/0 07/2022, 09/15/2022, Additional history exists Alcohol/Substance Use Screening 12/03/2025 12/03/2024 Depression Screening 12/03/2025 12/03/2024, 12/04/19 25 SDOH Screening 12/03/2025 12/03/2024 Tobacco Screening 12/03/2025 12/03/2024 Colonoscopy 03/31/2026 04/26/2021, 03/31/2016 Colorectal Cancer Screening 03/31/2026 DTaP/Tdap/Td Vaccines (2 - Td or Tdap) 10/31/2026 10/31/2016 Zoster Vaccines Completed 02/15/2022, 11/02/2021 Pneumococcal Vaccine: 50+ Years Completed 03/30/2023 Influenza Vaccine Completed 04/09/2024, , 05/18/2022, Additional history exists HIB Vaccines Aged Out No longer eligi ble based on patient's age to complete this topic HPV Vaccines Aged Out No longer eligi ble based on patient's age to complete this topic Hepatitis A Vaccines Aged Out No long er eligible based on patient's age to complete this topic Hepatitis B Vaccines Aged Out No long er eligible based on patient's age to complete this topic IPV Vaccines Aged Out No longer eligi ble based on patient's age to complete this topic Meningococcal Vaccine Aged Out No sebastian virgilio eligible based on patient's age to complete this topic RSV under 20 months Aged Out No longe r eligible based on patient's age to complete this topic Rotavirus Vaccines Aged Out No longer eligible based on patient's age to complete this topic Procedures Procedure Name Priority Date/Time Associated Diagnosis Comments POCT GLYCATED HEMOGLOBIN, TOTAL Routine 12/03/2024 11:20 AM EDT Controlled type 2 diabetes mellitus without complication, with long-term current use of insulin ([facility]) POCT GLUCOSE Routine 12/03/2024 11:19 AM EDT Controlled type 2 diabetes mellitus without complication, with long-term current use of insulin ([facility]) ALBUMIN, RANDOM URINE W/CREATININE Routine 07/15/2024 9:37 AM EST Type 2 diabetes mellitus without complication, unspecified whether technician terminal and repeater insulin use ([facility]) Benign essential hypertension Obstructive sleep apnea syndrome LIPID PANEL, STANDARD Routine 07/15/2024 9:37 AM EST Type 2 diabetes mellitus without complication, unspecified whether technician terminal and repeater insulin use ([facility]) Benign essential hypertension Obstructive sleep apnea syndrome HM COLONOSCOPY Routine 04/26/2021 11:41 AM EDT from Last 3 Months or Most Recently Relevant to Health Maintenance Results * POCT HGB A1C (12/03/2024 11:20 AM EDT) Hemoglobin A1C 5.8 4.0 - 6.0 % QC Media Lot # [id number] Lot# Expiration Date Blood 12/03/2024 11:2 0 AM EDT Kindra Ernestine CRUTCH MAKER POINT OF CARE TEST ENTER/EDIT ORDERABLES Final Result * POCT Glucose (12/03/2024 11:19 AM EDT) Glucose Blood, POC 112 60 - 200 mg/dL QC Media Lot # [id number] Lot# Expiration Date Blood Capillary blood specimen / Unknown 12/03/2024 11:19 AM EDT Kindra Sinha CRUTCH MAKER POINT OF CARE TEST ENTER/EDIT ORDERABLES Final Result * (ABNORMAL) Albumin, Random Urine W/Creatinine (07/15/2024 9:37 AM EST) Creatinine, Urine 284.10 mg/dL [facility] Microalbumin Urine 207.0 mg/L [facility] Microalbum Creatinine Ratio Ur 72.8(H) <30 ug/mg cr [facility] Comment:Albumin/Creatinine R atio Reference Ranges: Normal: < 30 ug/mg creatinine Microalbuminuria: 30 - 300 ug/mg creatinineClinical Albuminuria: > 300 ug/mg creatinine Urine (Urine, Random) 07/15/2024 9:37 AM EST 07/15/2024 11:19 AM EST us Jaspreet Sandoval MD LAB URINE ORDERABLES Final Resul t [facility] [address] [place] [address] [phone] * Lipid Panel, Standard (07/15/2024 9:37 AM EST) Triglycerides 125 <150 mg/dL [facility] Comment:Desirable Triglyceri de: less than 150 mg/dLBorderline High Triglyceride 150-199 mg/dLHigh Triglyceride: 200-499 mg/dLVery High Triglyceride: greater than or equal to 5OO mg/dL Cholesterol 148 <200 mg/dL [facility] Comment:Desirable Cholestero l: less than 200 mg/dLBorderline High Cholesterol: 200-239 mg/dLHigh Cholesterol: greater than 239 mg/dL LDL Cholesterol Calculated 75 <100 mg/dL [facility] Comment:Desirable LDL: less than 100 mg/dLNear Optimal/Above Optimal LDL: 110- 129 mg/dLBorderline High LDL: 130-159 mg/dLHigh LDL: 160-189 mg/dLVery High LDL: greater than or equal to 190 mg/dL HDL Cholesterol 48 >40 mg/dL [facility] Comment:Desirable HDL: great er than 40 mg/dL Note: This HDL assay may give artificially low results in patients with liver disease. Blood Venous blood specimen / Unknown 07/15/2024 9:37 AM EST 07/15/2024 11:00 AM EST us Jaspreetraquel Sandoval MD LAB BLOOD ORDERABLES Final Resul t [facility] [address] [place] [address] [phone] * Hm Colonoscopy (04/26/2021 11:41 AM EDT) Colonoscopy Normal Normal Impressions Lisa Ricardo - 04/26/2021 11:41 AM EDT Recommended 1 year follow up Historical Provider HEALTH MAINTENANCE Final Result from Last 3 Months or Most Recently Relevant to [place] [id number] [facility] STANDARD Care Teams Grinding And Spraying Supervisor Relationship Specialty Start Date End Date Name, MD Jaspreet [address] [place] [phone] PCP - General Family Medicine 08/25/15
--- OUTSIDE RECORDS SUMMARY | 2024-12-03 13:20 | XMS_ITS | Encounter Summary ---
Author Organization [employer] Address [address] [facility] 7t [place] [address] Care Team Providers Care It Architecture Analyst Name Role Phone Name, Jaspreet SELLERS Primary Care Provider [phone] Reason for Visit * Reason Onset Date Comments CHART PREP 12/02/2024 Encounter Details Date Type Department Care Team ([facility] st Contact Info) Description 12/02/2024 Telephone [facility] MEDICINE [address] [place], [place] [phone] Kindra Sinha FNP [address] [place], [place] [phone] CHART PREP Social History Tobacco Use Types Packs/Day Years [...] AM EDT documented as of this encounter Miscellaneous Notes * Telephone Encounter - Alan Mendez [place] - 12/02/2024 10:15 AM EDT Chart Prep Labs: done from 07/15/24 Images: not applicable Referrals: sleep medicine contacted pt several time no call back. Vaccines due: RSV Screenings: eye exam and foot exam Overdue care gaps: A1c, Glucose, SBIRT, SDOH, PHQ-9, ROXANA-7, Oral health screening, and Disability screen documented in this encounter Plan of Treatment Not on file documented as of this encounter Visit Diagnoses Not on filedocumented in this encounter Additional Health Concerns Assessment Noted Time PHQ-9 Depression Total Score: 0 10/10/19 24 3:18 PM EDT documented as of this encounter Care Teams It Architecture Analyst Relationship Specialty Start Date End Date Name, MD Jaspreet [address] [place] [address] PCP - General Family Medicine 08/25/15 documented as of this encounter
--- OUTSIDE RECORDS SUMMARY | 2024-12-03 13:20 | XMS_ITS | Encounter Summary ---
Author Organization [employer] Address [address] [facility] 7t [place] [address] Care Team Providers Care Yard Operator Name Role Phone Name, Jaspreet SELLERS Primary Care Provider Reason for Visit * Reason Comments Med Refill Encounter Details Date Type Department Care Team ([facility] st Contact Info) Description 06/13/2024 Refill [facility] MED[facility] [address] [place], [place] [phone] Cyndie Mireles FNP [address] [place], [place] [phone] Social History Tobacco Use Types Packs/Day Years [...] documented as of this encounter Care Teams Yard Operator Relationship Specialty Start Date End Date Name, MD Jaspreet [address] [place] [address] PCP - General Family Medicine 08/25/15 documented as of this encounter
--- OUTSIDE RECORDS SUMMARY | 2024-12-03 13:20 | XMS_ITS | Encounter Summary ---
Author Organization [employer] Address [address] [facility] 7t [place] [address] Care Team Providers Care Cook Dinner Name Role Phone Name, Jaspreet SELLERS Primary Care Provider [phone] Reason for Visit * Reason Comments Med Refill Encounter Details Date Type Department Care Team ([facility] st Contact Info) Description 09/07/2023 Refill [facility] MEDICINE [address] [place], [place] [phone] Name, MD Jaspreet [address] [place], [place] [phone] Social History Tobacco Use Types Packs/Day Years Used Date Smoking Tobacco: Never Smokeless Tobacco: Never Alcohol Use Standard Drinks/Week Comments Never 0 (1 standard drink = 0.6 oz pur e alcohol) Depression Answer Date Recorded Patient Health Questionnaire-9 Score 0 08/04/2022 Housing Stability Answer Date Recorded What is your housing situation today? I have henriqueabbe guzman 05/15/[address] you li ve. Do you have problems with any of the following? None of the above 05/15/2023 Food Insecurity Answer Date Recorded Within the past 12 months, y ou worried that your food would run out before you got money to buy more: Never True 05/15/2023 Within the past 12 months,th e food you bought just didn't last and you didn't have enough money to get more: Never True Transportation Answer Date Recorded In the past 12 months, has l ack of transportation kept you from medical appts, meetings, work or from getting things needed for daily living? No 05/15/2023 Utilities Answer Date Recorded In the past 12 months, has t he electric, gas, oil or water company threatened to shut off services in your home? No 05/15/2023 Depression Answer Date Recorded Patient Health Questionnaire-2 Score 0 08/04/2022 Sex and Gender Information Value Date Recorded [...] Noted Time PHQ-9 Depression Total Score: 0 08/04/19 23 9:31 AM EST documented as of this encounter Care Teams Cook Dinner Relationship Specialty Start Date End Date Name, MD Jaspreet [address] [place] [phone] PCP - General Family Medicine 08/25/15 documented as of this encounter
--- OUTSIDE RECORDS SUMMARY | 2024-12-03 13:20 | XMS_ITS | Encounter Summary ---
Author Organization [facility] Address [address] [facility] 7t [place] [address] Care Team Providers Care Bpm Analyst Name Role Phone Name, Jaspreet SELLERS Primary Care Provider [phone] Encounter Details Date Type Department Care Team (Late st Contact Info) Description 07/12/2022 Orders Only [facility] MED[facility]INE [address] [place], [place] [phone] Patience Umanzor, RN [address] [place], [place] [phone] Social History Tobacco Use Types Packs/Day Years Used Date Smoking Tobacco: Never Assessed Sex and Gender Information Value Date Recorded Sex Assigned at Male 05/29/2022 10:18 AM EDT Legal Sex Male 10:18 AM EDT Gender Identity Male 05/29/2022 10:18 AM EDT Sexual Orientation Straight 05/29/2022 10 :18 AM EDT COVID-19 Exposure Response Date Recorded In the last 10 days, have yo u been in contact with someone who was confirmed or suspected to have Coronavirus/COVID-19? No / Unsure 07/14/2022 10:57 AM EST documented as of this encounter Plan of Treatment Not on file documented as of this encounter Visit Diagnoses Not on filedocumented in this encounter Care Teams Bpm Analyst Relationship Specialty Start Date End Date Name, MD Jaspreet [address] [place], [place] [phone] PCP - General Family Medicine 08/25/15 documented as of this encounter
--- OUTSIDE RECORDS SUMMARY | 2024-12-03 13:20 | XMS_ITS | Encounter Summary ---
Author Organization [employer] Address [address] [facility] 7t [place] [address] Care Team Providers Care Hospital Recruiter Name Role Phone Name, Jaspreet SELLERS Primary Care Provider [phone] Reason for Visit * Reason Comments Med Refill Encounter Details Date Type Department Care Team ([facility] st Contact Info) Description 06/13/2024 Refill [facility] MED[facility]INE [address] [place], [place] [phone] Kenyetta Ann MD [address] [place], [place] [phone] Chronic low back pain, unspecified back pain laterality, unspecified whether sciatica present Social History Tobacco Use Types Packs/Day Years [...] as of this encounter Visit Diagnoses Diagnosis Chronic low back pain, unspecified back pain laterality, unspecified whether sciatica present documented in this encounter Additional Health Concerns Assessment Noted Time PHQ-9 Depression Total Score: 0 10/10/19 24 3:18 PM EDT documented as of this encounter Care Teams Hospital Recruiter Relationship Specialty Start Date End Date Name, MD Jaspreet [address] [place] [phone] PCP - General Family Medicine 08/25/15 documented as of this encounter
--- OUTSIDE RECORDS SUMMARY | 2024-12-03 13:20 | XMS_ITS | Encounter Summary ---
Author Organization [employer] Address [address] [facility] 7t [place] [address] Care Team Providers Care Gambling Box Person Name Role Phone Name, Jaspreet SELLERS Primary Care Provider [phone] Reason for Visit * Reason Onset Date Comments nurse triage 12/01/2024 Encounter Details Date Type Department Care Team ([facility] st Contact Info) Description 12/01/2024 Telephone [facility] MEDICINE [address] [place] [address] Name, MD Jaspreet [address] [place], [place] [phone] nurse triage Social History Tobacco Use Types Packs/Day Years [...] encounter Miscellaneous Notes * Telephone Encounter - Krista Choudhury RN - 12/01/2024 12:22 PM EDT Called pt. He states that he has left sided upper abdominal pain x 6 months. No Hx. Of constipation. Pt. Has bowel movements daily and WNL. No pain with urination and no visible blood in urine. No nauaea or vomiting. No pain with eating or drinking. Pt can feel a lump in stomach. Pt. Also has pain when he touches area. No chest pain, no SOB, advised pt. To go to ED but, he states he has had thisfor about 6 months and he will wait for appt. Protocol Used: Abdominal Pain - Male (Adult) Protocol-Based Disposition: See in Office 12/03/24 at 1115am. Blue team. Video visit offer not recorded Positive Triage Questions: * Patient wants to be seen * Abdominal pain is a chronic symptom (recurrent or ongoing AND lasting > 4 weeks) * All higher-acuity triage questions were negative Care Advice Discussed: * Reassurance and Education - Stomach Pain * Rest * Drink Clear Fluids * Diet * Pass a Stool * Avoid Aspirin and NSAIDs * Telephone Encounter - Silviano Peace - 12/01/2024 12:13 PM EDT Symptom: Abdominal Pain - Male Outcome: Talk to a nurse or provider within 15 minutes Reason: Severe pain now The caller accepted this outcome. Angolan speaking documented in this encounter Plan of Treatment Not on file documented as of this encounter Visit Diagnoses Not on filedocumented in this encounter Additional Health Concerns Assessment Noted Time PHQ-9 Depression Total Score: 0 10/10/19 24 3:18 PM EDT documented as of this encounter Care Teams Gambling Box Person Relationship Specialty Start Date End Date Name, MD Jaspreet [address] [place] [address] PCP - General Family Medicine 08/25/15 documented as of this encounter
--- OUTSIDE RECORDS SUMMARY | 2024-12-03 13:20 | XMS_ITS | Encounter Summary ---
Author Organization [employer] Address [address] [facility] 7t [place] [address] Care Team Providers Care Agriscience Teacher Name Role Phone Name, Jaspreet SELLERS Primary Care Provider [phone] Reason for Visit * Reason Comments Med Refill Encounter Details Date Type Department Care Team ([facility] st Contact Info) Description 11/29/2023 Refill [facility] MEDICINE [address] [place], [place] [phone] Name, MD Jaspreet [address] [place], [place] [phone] Social History Tobacco Use Types Packs/Day Years [...] documented as of this encounter Care Teams Agriscience Teacher Relationship Specialty Start Date End Date Name, MD Jaspreet [address] [place] [address] PCP - General Family Medicine 08/25/15 documented as of this encounter
--- OUTSIDE RECORDS SUMMARY | 2024-12-03 13:20 | XMS_ITS | Encounter Summary ---
Author Organization [employer] Address [address] [facility] 7t [place] [address] Care Team Providers Care Professor Of Archaeology Name Role Phone Name, Jaspreet SELLERS Primary Care Provider [phone] Reason for Referral * Imaging (Urgent) - Authorized Specialty Diagnoses / Procedures Referred By Michael monteiro Referred To Contact Radiology Diagnoses Chronic abdominal pain Procedures CT Abdomen Pelvis w/ and w/o Contrast Kindra Sinha FNP [address] [place] [address] Phone: tel: fax: [address] Phone: tel: fax: Referral ID Status Reason Start Date Expiration Date V isits Requested Visits Authorized [id number] Authorized 12/03/2024 12/03/2025 1 1 Encounter Details Date Type Department Care Team (Late st Contact Info) Description 12/03/2024 11:15 AM EDT Office Visit [facility] MEDICINE [address] [place] [address] Kindra Sinha FNP [address] [place], [place] [phone] Controlled type 2 diabetes mellitus without complication, with long-term current use of insulin ([facility]) (Primary Dx); Chronic abdominal pain Social History Tobacco Use Types Packs/Day Years [...] AM EDT documented as of this encounter Last Filed Vital Signs Vital Sign Reading [...] Mass Index 37.71 12/03/2024 11:17 AM EDT documented in this encounter Progress Notes * Kindra Sinha, SCALE TESTER - 12/03/2024 11:15 AM EDT Sebastien is a 64 y.o. male who presents for a for left upper abdominal lump and pain x 6 months. Describes pain as throbbing non radiating waxing an wanning worsen by nothing and alleviated by nothing Did not take any OTC for the pain Patient was seen in september 2023 for similar pain with outdated US of the pelvis and abdomen. Patientdid not follow up for CT scan Manuel fever, nausea, diarrhea, constipation, chills, bloody stool or mucous Denies alcohol use. Reports chronic use of celecoxib for arthritis Patient Active Problem List Diagnosis Basal cell carcinoma of skin Aneurysm of ascending aorta (CMS/HCC) Carpal tunnel syndrome Degeneration of lumbosacral intervertebral disc Hypercholesterolemia Hyperglycemia due to type 2 diabetes mellitus (CMS/HCC) Increased frequency of urination Insomnia Non-cardiac chest pain Class 2 obesity Obstructive sleep apnea syndrome Osteoarthritis of both knees Primary malignant neoplasm of perianal skin Simple renal cyst Urethral stricture Chronic low back pain Venous insufficiency of leg Primary hypertension Acute non intractable tension-type headache Controlled type 2 diabetes mellitus without complication, with long-term current use of insulin (CMS/HCC) Chronic abdominal pain Allergies Allergen Reactions Lisinopril Swelling Penicillins Hives and Rash Current Outpatient Medications: Accu-Chek Guide test strip, USE TO TEST FINGER STICK BLOOD SUGAR 4 (FOUR) TIMES DAILY, Disp: 200 strip, Rfl: 11 Accu-Chek Softclix Lancets lancets, USE TO TEST FINGER STICK BLOOD SUGAR 4 (FOUR) TIMES DAILY, Disp: 100 each, Rfl: 5 Acetaminophen Extra Strength 500 MG tablet, TAKE 2 TABLETS BY MOUTH EVERY 8 HOURS NEEDED FOR HEADACHE, Disp: 30 tablet, Rfl: 5 Alcohol Swabs (Alcohol Pads) 70 % pads, USE DIRECTED 4 (FOUR) TIMES DAILY, Disp: 100 each, Rfl: 5 amLODIPine (Norvasc) 5 MG tablet, TAKE 1 TABLET BY MOUTH EVERY MORNING, Disp: 30 tablet, Rfl: 11 atorvastatin (Lipitor) 20 MG tablet, TAKE 1 TABLET BY MOUTH ONCE DAILY, Disp: 30 tablet, Rfl: 11 celecoxib (CeleBREX) 200 MG capsule, TAKE 1 CAPSULE BY MOUTH two (2) times a day, Disp: 40 capsule,Rfl: 5 chlorthalidone (Hygroton) 25 MG tablet, TAKE 1 TABLET BY MOUTH ONCE DAILY IN THE EVENING, Disp: 30 tablet, Rfl: 5 Diclofenac Sodium 1 % gel, APPLY 2 gramos TOPICALLY two (2) times a day, Disp: 100 g, Rfl: 1 DULoxetine (Cymbalta) [address] capsule, TAKE 1 CAPSULE BY MOUTH ONCE DAILY, Disp: 30 capsule, Rfl: 5 gabapentin (Neurontin) 300 MG capsule, Take 1 capsule (300 mg) by mouth 3 times daily., Disp: 90 capsule, Rfl: 11 hydrALAZINE (Apresoline) 25 MG tablet, TAKE 1 TABLET BY MOUTH two (2) times a day WITH A MEAL, Disp: 60 tablet, Rfl: 5 hydrocortisone 1 % cream, Apply topically to affected area(s) two times daily, Disp: , Rfl: insulin glargine (Lantus SoloStar) 100 UNIT/ML pen, INJECT 30 UNITS SUBCUTANEOUSLY ONCE DAILY, Disp: 9 mL, Rfl: 5 insulin pen needle (Comfort EZ Pen [place]) 32G x 4 mm mis, USE TO INJECT INSULIN ONCE DAILY, Disp: 100 each, Rfl: 1 lidocaine-prilocaine (Emla) 2.5-2.5 % cream, apply to affected area four times daily as needed for pain, Disp: , Rfl: metFORMIN (Glucophage) 500 MG tablet, TAKE 1 TABLET BY MOUTH two (2) times a day (IN THE MORNING AND IN THE EVENING), Disp: 60 tablet, Rfl: 5 metoprolol succinate XL (Toprol-XL) 100 MG 24 hr tablet, TAKE 1 TABLET BY MOUTH ONCE DAILY, Disp: 90 tablet, Rfl: 2 sildenafil (Viagra) 50 MG tablet, Take 1 tablet (50 mg) by mouth if needed for erectile dysfunctionfor up to 10 days., Disp: 10 tablet, Rfl: 3 tamsulosin (Flomax) 0.4 MG 24 hr capsule, TAKE 1 CAPSULE BY MOUTH ONCE DAILY IN THE MORNING, Disp: 30 capsule, Rfl: 11 Review of Systems Constitutional: Negative for appetite change, chills and fever. HENT: Negative for sore throat. Respiratory: Negative for cough, chest tightness, shortness of breath and wheezing. Cardiovascular: Negative for chest pain and palpitations. Gastrointestinal: Negative for abdominal distention, blood in stool, constipation, diarrhea and nausea. Abdominal pain Skin: Negative for color change. Neurological: Negative for weakness and light-headedness. Psychiatric/Behavioral: Negative for suicidal ideas. Visit Vitals BP 128/84 (BP Location: Left arm, Patient Position: Sitting, BP Cuff Size: Large adult) Pulse 69 Temp 97.6 ??F (36.4 ??C) (Temporal) Resp 18 Ht 5' 11 (1.803 m) Wt 270 lb 6 oz (123 kg) SpO2 94% BMI 37.71 kg/m?? Smoking Status Former BSA 2.48 m?? Physical Exam Vitals reviewed. Constitutional: General: He is not in acute distress. Appearance: Normal appearance. He is not ill-appearing, toxic-appearing or diaphoretic. HENT: Head: Normocephalic and atraumatic. Cardiovascular: Rate and Rhythm: Normal rate and regular rhythm. Pulses: Normal pulses. Heart sounds: Normal heart sounds. Pulmonary: Effort: Pulmonary effort is normal. No respiratory distress. Breath sounds: Normal breath sounds. No wheezing. Chest: Chest wall: No tenderness. Abdominal: Comments: Left lower quadrant pain Musculoskeletal: Right lower leg: No edema. Left lower leg: No edema. Skin: Findings: No bruising. Neurological: General: No focal deficit present. Mental Status: He is alert and oriented to person, place, and time. Psychiatric: Mood and Affect: Mood normal. Behavior: Behavior normal. Thought Content: Thought content normal. Judgment: Judgment normal. Problem List Items Addressed This Visit Controlled type 2 diabetes mellitus without complication, with long-term current use of insulin ([facility]) - Primary POCT A1C 5.8 POCT Glucose 112 On metformin diabetes stable Continue with medications as prescribed Avoid sweet food and drinks Relevant Orders POCT Glucose (Completed) POCT HGB A1C (Completed) Chronic abdominal pain Abdomen soft. Negative for mass, abdominal rigidity, rebound or guarding Focal tenderness on the lower quadrant of the abdomen Unclear etiology ? Diverticulitis ? hernia Will order CBC, CMP and CT Abdomen Pelvis w/ and w/o Contrast urgent Will treat according to results Relevant Orders CBC Comprehensive Metabolic Panel CT Abdomen Pelvis w/ and w/o Contrast C SOCIAL SERVICES COORDINATOR Attestation SOCIAL SERVICES COORDINATOR Resident Attestation: Patient was seen and evaluated by Kindra TERRELL , in collaboration with Jaspreet Sandoval MD who has reviewed my assessment and plan. I, Jaspreet Sandoval MD, have reviewed the resident's note and agree with the assessment & plan of care as documented above. Visit Conducted in: Korean Translation by: Provided by [facility] staff member , documented in this encounter Plan of Treatment Scheduled Orders Name Type Priority Associated Diagnoses Orde r Schedule CBC Lab Routine Chronic abdominal pain Expected: 12/03/2024, Expires: 12/02/2025 Comprehensive Metabolic Panel Lab Routine Chronic abdominal pain Expected: 12/03/2024 (Approximate), Expires: 12/03/2025 CT Abdomen Pelvis w/ and w/o Contrast Imaging Urgent Chronic abdominal pain Expected: 12/03/2024, Expires: 12/03/2025 documented as of this encounter Procedures Procedure Name Priority Date/Time Associated Diagnosis Comments POCT GLYCATED HEMOGLOBIN, TOTAL Routine 12/03/2024 11:20 AM EDT Controlled type 2 diabetes mellitus without complication, with long-term current use of insulin ([facility]) POCT GLUCOSE Routine 12/03/2024 11:19 AM EDT Controlled type 2 diabetes mellitus without complication, with long-term current use of insulin ([facility]) documented in this encounter Results * POCT HGB A1C (12/03/2024 11:20 AM EDT) Hemoglobin A1C 5.8 4.0 - 6.0 % QC Media Lot # [id number] Lot# Expiration Date Blood 12/03/2024 11:2 0 AM EDT Kindra TERRELL POINT OF CARE TEST ENTER/EDIT ORDERABLES Final Result * POCT Glucose (12/03/2024 11:19 AM EDT) Glucose Blood, POC 112 60 - 200 mg/dL QC Media Lot # [id number] Lot# Expiration Date Blood Capillary blood specimen / Unknown 12/03/2024 11:19 AM EDT Kindra Sinha SCALE TESTER POINT OF CARE TEST ENTER/EDIT ORDERABLES Final Result documented in this encounter Visit Diagnoses Diagnosis Controlled type 2 diabetes mellitus without complication, with long-term current use of insulin ([facility])- Primary Chronic abdominal pain Abdominal pain, unspecified site documented in this encounter Additional Health Concerns Assessment Noted Time PHQ-9 Depression Total Score: 9 12/04/19 11:22 AM EDT documented as of this encounter Care Teams Professor Of Archaeology Relationship Specialty Start Date End Date Name, MD Jaspreet [address] [place] [address] PCP - General Family Medicine 08/25/15 documented as of this encounter
--- OUTSIDE RECORDS SUMMARY | 2024-12-03 13:20 | XMS_ITS | Encounter Summary ---
Author Organization [employer] Address [address] [facility] 7t [place] [address] Care Team Providers Care Hoist Cylinder Loader Name Role Phone Name, Jaspreet SELLERS Primary Care Provider [phone] Encounter Details Date Type Department Care Team (Latest Contact Info) Description 12/03/2024 Travel Social History Tobacco Use Types Packs/Day Years Used Date Smoking Tobacco: Former Cigarettes Passive Smoke Exposure: Past Smokeless Tobacco: Never Alcohol Use Standard Drinks/Week [...] Time PHQ-9 Depression Total Score: 9 12/04/19 25 11:22 AM EDT documented as of this encounter Care Teams Hoist Cylinder Loader Relationship Specialty Start Date End Date Name, MD Jaspreet [address] [place] [address] PCP - General Family Medicine 08/25/15 documented as of this encounter
--- OUTSIDE RECORDS SUMMARY | 2024-12-03 13:20 | XMS_ITS | Encounter Summary ---
Author Organization [employer] Address [address] [facility] 7t [place] [address] Care Team Providers Care Ultrasonic Solderer Name Role Phone Name, Jaspreet SELLERS Primary Care Provider [phone] Reason for Visit * Reason Comments Med Refill Encounter Details Date Type Department Care Team ([facility] st Contact Info) Description 05/15/2023 Refill [facility] MEDICINE [address] [place], [place] [phone] [facility] [address] [place], [place] [phone] Benign essential hypertension Social History Tobacco Use Types Packs/Day Years [...] as of this encounter Visit Diagnoses Diagnosis Benign essential hypertension Essential hypertension, benign documented in this encounter Additional Health Concerns Assessment Noted Time PHQ-9 Depression Total Score: 0 08/04/19 23 9:31 AM EST documented as of this encounter Care Teams Ultrasonic Solderer Relationship Specialty Start Date End Date Name, MD Jaspreet [address] [place] [address] PCP - General Family Medicine 08/25/15 documented as of this encounter
--- OUTSIDE RECORDS SUMMARY | 2024-12-03 13:20 | XMS_ITS | Encounter Summary ---
Author Organization [employer] Address [address] [facility] 7t [place] [address] Care Team Providers Care Management Accounts Manager Name Role Phone Name, Jaspreet SELLERS Primary Care Provider [phone] Reason for Visit * Reason Comments Med Refill Encounter Details Date Type Department Care Team (Late st Contact Info) Description 02/08/2023 Refill [facility] MEDICINE [address] [place] [address] Cathy Grayson, SAND BUFFER [address] [place], [place] [phone] Benign essential hypertension Social History Tobacco Use Types Packs/Day Years Used Date Smoking Tobacco: Never Smokeless Tobacco: Never Depression Answer Date Recorded Patient Health Questionnaire-9 Score 0 08/04/2022 Depression Answer Date Recorded Patient Health Questionnaire-2 [...] documented as of this encounter Care Teams Management Accounts Manager Relationship Specialty Start Date End Date Name, MD Jaspreet [address] [place] [address] PCP - General Family Medicine 08/25/15 documented as of this encounter
--- OUTSIDE RECORDS SUMMARY | 2024-12-03 13:20 | XMS_ITS | Encounter Summary ---
Author Organization [employer] [facility] Address [address] [place] [address] 7t [place] [address] Care Team Providers Care Forest Pathology Professor Name Role Phone Name, Jaspreet SELLERS Primary Care Provider Reason for Visit * Reason Comments Med Refill Encounter Details Date Type Department Care Team (Late st Contact Info) Description 11/08/[address] [facility] MEDICINE [address] [place], [place] [phone] Name, MD Jaspreet [address] [place], [place] [phone] Social History Tobacco Use Types Packs/Day Years [...] documented as of this encounter Care Teams Forest Pathology Professor Relationship Specialty Start Date End Date Name, MD Jaspreet [address] [place], [place] [phone] PCP - General Family Medicine 08/25/15 documented as of this encounter
--- OUTSIDE RECORDS SUMMARY | 2024-12-03 13:20 | XMS_ITS | Encounter Summary ---
Author Organization [employer] Address [address] [facility] 7t [place] [address] Care Team Providers Care Delimer Name Role Phone Name, Jaspreet SELLERS Primary Care Provider [phone] Reason for Visit * Reason Comments Med Refill Encounter Details Date Type Department Care Team ([facility] st Contact Info) Description 09/02/2022 Refill [facility] MEDICINE [address] [place], [place] [phone] Name, MD Jaspreet [address] [place] [address] Right knee pain, unspecified chronicity Social History Tobacco Use Types Packs/Day Years [...] suspected to have Coronavirus/COVID-19? No / Unsure 08/04/2022 9:18 AM EST documented as of this encounter Plan of Treatment Not on file documented as of this encounter Visit Diagnoses Diagnosis Right knee pain, unspecified chronicity documented in this encounter Additional Health Concerns Assessment Noted Time PHQ-9 Depression Total Score: 0 08/04/19 23 9:31 AM EST documented as of this encounter Care Teams Delimer Relationship Specialty Start Date End Date Name, MD Jaspreet [address] [place] [address] PCP - General Family Medicine 08/25/15 documented as of this encounter
--- OUTSIDE RECORDS SUMMARY | 2024-12-03 13:20 | XMS_ITS | Encounter Summary ---
Author Organization [employer] [facility] Address [address] [facility] 7t [place] [address] Care Team Providers Care Pss Delivery Professional Name Role Phone Name, Jaspreet SELLERS Primary Care Provider [phone] Encounter Details Date Type Department Care Team (Late st Contact Info) Description 12/21/2022 Abstract [facility] MEDICINE [address] [place], [place] [phone] Name, MD Jaspreet [address] [place], [place] [phone] Social History Tobacco Use Types Packs/Day Years [...] suspected to have Coronavirus/COVID-19? No / Unsure 12/06/2022 9:23 AM EDT documented as of this encounter Plan of Treatment Not on file documented as of this encounter Procedures Procedure Name Priority Date/Time Associated Diagnosis Comments COLONOSCOPY Routine 04/26/2021 11:41 AM EDT documented in this encounter Results * Colonoscopy (04/26/2021 11:41 AM EDT) Colonoscopy Normal Normal Impressions Lisa Ricardo - 04/26/2021 11:41 AM EDT Recommended 1 year follow up us Historical Provider HEALTH MAINTENANCE Final Result documented in this encounter Visit Diagnoses Not on filedocumented in this encounter Additional Health Concerns Assessment Noted Time PHQ-9 Depression Total Score: 0 08/04/19 23 9:31 AM EST documented as of this encounter Care Teams Pss Delivery Professional Relationship Specialty Start Date End Date Name, MD Jaspreet [address] [place] [id number] PCP - General Family Medicine 08/25/15 documented as of this encounter
[2024-12-03 13:54] LABS: Hematocrit 40.6 % (42.0-52.0); Hemoglobin 13.3 g/dl (14.0-18.0); Mean Corpuscular HGB Conc 32.8 g/dl (31.0-36.0); Mean Corpuscular Hemoglobin 31.1 pg (27.0-33.0); Mean Corpuscular Volume 95.1 fL (80.0-98.0); Mean Platelet Volume 10.5 fL (9.4-12.4); Platelet Count 277 X10*3/uL (160-400); Red Blood Count 4.27 X10*6/uL (4.60-5.80); Red Cell Distribution Width 12.4 % (11.0-16.0); White Blood Count 6.4 X10*3/uL (4.8-10.8)
[2024-12-03 14:20] LABS: Alanine Aminotransferase 25 U/L (0-40); Albumin Level 4.3 g/dL (3.5-5.0); Alkaline Phosphatase 55 U/L (39-117); Anion Gap 12 (12-20); Aspartate Amino Transferase 31 U/L (5-37); Bilirubin Total 0.9 mg/dL (0.0-1.0); Blood Urea Nitrogen 25 mg/dL (9-16); Calcium 9.6 mg/dL (8.4-10.2); Carbon Dioxide 31 mmol/L (22-29); Chloride 101 mmol/L (96-108); Estimated Glomerular Filt Rate > 60; Glucose Random 103 mg/dL (60-115); Potassium 3.7 mmol/L (3.3-5.1); Sodium 140 mmol/L (135-145); Total Protein 7.8 g/dL (6.5-8.0)
== END 2024-12-03 12:03 | disposition home or self-care (01) ==
LOC: HO.HHCL 12:02
PROVIDERS: Visit Provider Nurse Practitioner Family
DX: R10.9 Unspecified abdominal pain (principal); G89.29 Other chronic pain
CPT/HCPCS: 36415; 80053; 85027

== ENCOUNTER 2025-01-07 08:03 | Outpatient (REF) | payer MEDICARE, MEDICAID, SELFPAY ==
--- NOTE | ~2025-01-07 | CT_ITS ---
CLINICAL HISTORY: worsening chronic abdominal pain Exam: CT abdomen and pelvis with intravenous contrast. Comparison: None. Findings: CT abdomen: Lung bases are clear. No acute bony lesions. Calcification of the posterior annulus at the L5-S1 disc level. Associated facet joint degenerative change. This results in moderate narrowing of the left lateral recess with severe narrowing of the bilateral neural foramina. No focal hepatic lesions. Main portal vein is patent. Spleen, pancreas, gallbladder, and adrenal glands are unremarkable. 5 cm rounded area of low attenuation within the posterior aspect of the right kidney. This has Hounsfield units greater than that of simple fluid between 18 and 45. There is a 1 mm calcification along the inferior and lateral aspect of the cysts. Kidneys are otherwise unremarkable. High-density contrast material seen within the stomach and small bowel. No dilated small bowel is seen. There is haziness within the central mesenteric fat with subcentimeter central mesenteric lymph nodes. These are increased in number but not size. No free fluid or free air. CT pelvis: No colonic wall thickening or pericolonic inflammatory stranding. Appendix is normal. Urinary bladder is mildly distended. Fat containing bilateral inguinal hernias. No free fluid or free air. Impression: 1. Nonspecific haziness within the central mesenteric fat with subcentimeter mesenteric lymph nodes. These are increased in number but not size. Although nonspecific, this can be seen with mild enteritis or mesenteric adenitis. 2. Degenerative disc disease and degenerative facet disease of the L5-S1 disc level with moderate central canal narrowing and severe bilateral neural foraminal narrowing. Correlation with any history of low back pain or bilateral lower extremity radiculopathy is suggested. MRI of the lumbar spine could further evaluate. 3. Indeterminate right renal lesion. Suggest renal ultrasound to determine if this is a cystic or solid lesion. This document has been electronically signed by: Mingo Baker MD on 01/08/2025 05:46:19
--- OUTSIDE RECORDS SUMMARY | 2025-01-07 08:07 | XMS_ITS | Encounter Summary ---
Author Organization [employer] Address [address] [facility] 7t [place] [address] Care Team Providers Care Custom Marine Canvas Fabricator Name Role Phone Name, Jaspreet SELLERS Primary Care Provider [phone] Reason for Visit * Reason Comments Med Refill Encounter Details Date Type Department Care Team ([facility] st Contact Info) Description 05/15/2023 Refill [facility] MEDICINE [address] [place], [place] [phone] [facility] [address] [place], [place] [phone] Benign essential hypertension Social History Tobacco Use Types Packs/Day Years Used Date Smoking Tobacco: Never Smokeless Tobacco: Never Alcohol Use Standard Drinks/Week Comments Never 0 (1 standard drink = 0.6 oz pur e alcohol) Depression Answer Date Recorded Patient Health Questionnaire-9 Score 0 08/04/2022 Housing Stability Answer Date Recorded What is your housing situation today? I have henrique guzman 05/15/[address] you [...] documented as of this encounter Care Teams Custom Marine Canvas Fabricator Relationship Specialty Start Date End Date Name, MD Jaspreet [address] [place] [address] PCP - General Family Medicine 08/25/15 documented as of this encounter
[2025-01-07] MEDS: Barium Sulfate Oral (Berry) 450 ML ORAL.SUSP 900 ML PO (10:48)
[2025-01-07] MEDS: iohexoL 350 MG/ML 100 ML INFUS..BTL IV (10:48)
[2025-01-07 11:17] LABS: Creatinine POC 0.8 mg/dL (0.5-1.4); GFR POC > 60
== END 2025-01-07 08:04 | disposition home or self-care (01) ==
LOC: HO.CT 08:03
PROVIDERS: PCP Internal Medicine Geriatric Medicine; Visit Provider Nurse Practitioner Family
DX: R10.9 Unspecified abdominal pain (principal); G89.29 Other chronic pain
CPT/HCPCS: 74177; 82565; Q9967

== ENCOUNTER → 2025-01-07 08:05 | Outpatient (BNV) | payer MEDICARE, MEDICAID, SELFPAY | PROVIDERS: PCP Internal Medicine Geriatric Medicine; Visit Provider Radiology Diagnostic Radiology | DX: I88.0 Nonspecific mesenteric lymphadenitis (principal) | CPT/HCPCS: 74177 ==

== ENCOUNTER 2025-02-18 13:54 | Outpatient (REF) | payer MEDICARE, MEDICAID, SELFPAY ==
--- NOTE | ~2025-02-18 | US_ITS ---
CLINICAL HISTORY: indeterminate R renal lesion on CT for further eval US Renal Comparison: CT/SR - CT ABDOMEN PELVIS W IV CON - 01/07/25 10:28 EDT Findings: Right kidney normal size and echotexture, 13 cm length. There is a 5.0 x 4.6 x 4.3 cm cyst within the right kidney. No obvious associated blood flow. Wall thickening and foci of wall calcification are noted. Left kidney normal size and echotexture, 13.2 cm length. No hydronephrosis of either kidney. Normal color Doppler IMPRESSION: 1. There is a 5 cm cyst within the right kidney. Although there is no appreciable blood flow on ultrasound, the wall of the cyst appears thickened and the prior CT scan suggested the possibility of but did not evaluate for associated wall enhancement. Based on both ultrasound and CT appearance, this cyst could represent either aBosniak 2F cyst or a Bosniak 3 cyst. As these categories have different management recommendations, suggest further evaluation with multiphase CT versus MRI to include both pre and postcontrast images. This document has been electronically signed by: Patience Scott MD on 02/19/2025 14:52:48
--- OUTSIDE RECORDS SUMMARY | 2025-02-18 14:39 | XMS_ITS | Encounter Summary ---
Author Organization [employer] Address [address] [facility] 7t [place] [address] Care Team Providers Care Materials Research Engineer Name Role Phone Name, Jaspreet SELLERS Primary Care Provider [phone] Reason for Visit * Reason Comments Med Refill Encounter Details Date Type Department Care Team ([facility] st Contact Info) Description 05/15/2023 Refill [facility] [address] [place], [place] [phone] [facility] [address] [place], [place] [phone] Benign essential hypertension Social History Tobacco Use [...] as of this encounter Plan of Treatment Upcoming Encounters Date Type Department Care Team (Late st Contact Info) Description 03/10/2025 1:45 PM EDT Office Visit [facility] [address] [place] [address] Name, MD Jaspreet [address] [place] [address] documented as of this encounter Visit Diagnoses Diagnosis Benign essential hypertension Essential hypertension, benign documented in this encounter Additional Health Concerns Assessment Noted Time PHQ-9 Depression Total Score: 0 08/04/19 23 9:31 AM EST documented as of this encounter Care Teams Materials Research Engineer Relationship Specialty Start Date End Date NameJaspreet MD [address] [place] [address] PCP - General Family Medicine 08/25/15 documented as of this encounter
== END 2025-02-18 13:55 | disposition home or self-care (01) ==
LOC: HO.US 13:54
PROVIDERS: PCP Internal Medicine Geriatric Medicine; Visit Provider Family Medicine
DX: R93.5 Abnormal findings on diagnostic imaging of other abdominal regions, including retroperitoneum (principal)
CPT/HCPCS: 76775

== ENCOUNTER → 2025-02-18 13:56 | Outpatient (BNV) | payer MEDICARE, MEDICAID, SELFPAY | PROVIDERS: PCP Internal Medicine Geriatric Medicine; Visit Provider Radiology Diagnostic Radiology | DX: N28.1 Cyst of kidney, acquired (principal) | CPT/HCPCS: 76775 ==

== ENCOUNTER 2025-03-10 14:21 | Outpatient (REF) | payer MEDICARE, MEDICAID, SELFPAY ==
--- OUTSIDE RECORDS SUMMARY | 2025-03-10 15:17 | XMS_ITS | Encounter Summary ---
Author Organization [employer] Address 75 [facility] 7t [place] [address] Care Team Providers Care Fuel Truck Driver Name Role Phone Name, Jaspreet SELLERS Primary Care Provider [phone] Reason for Visit * Reason Comments Med Refill Encounter Details Date Type Department Care Team ([facility] st Contact Info) Description 05/15/2023 Refill [facility] MED[facility] [address] [place], [place] [phone] [facility] [address] [place], [place] [phone] Benign essential hypertension Social History Tobacco Use [...] documented as of this encounter Care Teams Fuel Truck Driver Relationship Specialty Start Date End Date Name, MD Jaspreet [address] [place] [address] PCP - General Family Medicine 08/25/15 documented as of this encounter
--- OUTSIDE RECORDS SUMMARY | 2025-03-10 15:17 | XMS_ITS | Patient Health Record ---
Author Organization [facility] Address [address] [place] [address] Care Team Providers Care Publishing Specialist Name Role Phone Trevor Shah Unavailable [phone] Reason For Referral No Information Plan Of Treatment No Information
[2025-03-10 18:26] LABS: Prostate Specific Antigen 1.04 ng/mL (<0.05-4.0)
== END 2025-03-10 14:22 | disposition home or self-care (01) ==
LOC: HO.HHCL 14:21
PROVIDERS: PCP Internal Medicine Geriatric Medicine; Visit Provider Internal Medicine Geriatric Medicine
DX: N40.0 Benign prostatic hyperplasia without lower urinary tract symptoms (principal); Z12.5 Encounter for screening for malignant neoplasm of prostate
CPT/HCPCS: 36415; 84153

== ENCOUNTER → 2025-05-04 08:44 | Outpatient (BNV) | payer MEDICARE, MEDICAID, SELFPAY | PROVIDERS: PCP Internal Medicine Geriatric Medicine; Visit Provider Radiology Diagnostic Radiology | DX: K42.9 Umbilical hernia without obstruction or gangrene (principal); N28.1 Cyst of kidney, acquired; I88.0 Nonspecific mesenteric lymphadenitis | CPT/HCPCS: 74183 ==

== ENCOUNTER 2025-05-04 09:15 | Outpatient (REF) | payer MEDICARE, MEDICAID, SELFPAY ==
--- NOTE | ~2025-05-04 | MR_ITS ---
EXAMINATION: MR ABDOMEN WITHOUT AND WITH CONTRAST CLINICAL INFORMATION: COMPARISON: Previous CT of the abdomen and pelvis December 2024, renal ultrasound January 2025 and CTA of the chest from 2016. TECHNIQUE: MR abdomen was performed without and with use of 10 mL intravenous Gadavist gadolinium contrast. Postcontrast images are performed in multiphase dynamic sequences. Imaging was performed in 3 planes. FINDINGS: LUNG BASES: The visualized lung bases are unremarkable. LIVER, GALLBLADDER, AND BILIARY TREE: The liver is normal in size, smooth in contour, and normal in signal. No focal hepatic lesion or biliary ductal dilatation is present. The gallbladder is unremarkable with no evidence of gallbladder wall thickening, or obvious pericholecystic inflammatory changes. PANCREAS: Unremarkable. SPLEEN: Normal. ADRENAL GLANDS: Normal. KIDNEYS AND URETERS: There is a 5 cm complex cyst in the posterior lower pole of the right kidney. This has a thickened laminated dark T2 wall that demonstrates enhancement. Wall thickness measures up to 8 mm inferiorly. There are several thin nonenhancing septations. No solid mural nodule. There is partially visualized on CTA of the chest from 2016 and measured 4.5 cm. 7 mm high signal T1 and high signal T2 nonenhancing lesion in the posterior upper pole of the left kidney probably representing a proteinaceous or hemorrhagic cyst. Additional small subcentimeter left renal simple cysts. The kidneys are normal in size, shape, and enhance symmetrically. No hydronephrosis. No perinephric stranding. GASTROINTESTINAL TRACT: No bowel obstruction. No ascites or fluid collection. Normal appendix. ABDOMINAL WALL: Small umbilical hernia containing fat. LYMPH NODES: Fat stranding in this small bowel mesentery and small small bowel mesenteric lymph nodes similar to recent CT. No enlarged lymph nodes. VASCULAR: Unremarkable. OSSEOUS STRUCTURES: Degenerative changes of the spine. MR/MR abdomen wo/w con IMPRESSION: 5 cm complex cyst in the lower pole of the right kidney with thickened laminated enhancing wall measuring up to 8 mm and several thin nonenhancing septations. No mural nodule. 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 This is partially seen on CTA of the chest 2016 and measured 4.5 cm. Urology consultation recommended. Subcentimeter left upper pole hemorrhagic or proteinaceous cyst and simple cysts. Small, small bowel mesentery lymphadenopathy and fat stranding/ bhupendra mesentery similar to prior CT. Residual would include mesenteric adenitis, mesenteritis, lymphoproliferative process, changes related to primary small bowel or a pancreas process. Follow-up imaging recommended. This can be reevaluated at time of right renal complex cyst evaluation. Electronically signed by: Suze Sue MD 05/04/2025 01:08 PM EDT RP
--- OUTSIDE RECORDS SUMMARY | 2025-05-04 10:26 | XMS_ITS | Patient Health Record ---
Author Organization [facility] Address [address] [place] [address] Care Team Providers Care Ed Physicians Name Role Phone Trevor Shah Unavailable [phone] Reason For Referral No Information Plan Of Treatment No Information
--- OUTSIDE RECORDS SUMMARY | 2025-05-04 10:26 | XMS_ITS | Encounter Summary ---
Author Organization [employer] Address 75 [facility] 7t [place] [address] Care Team Providers Care Dressage Instructor Name Role Phone Name, Jaspreet SELLERS Primary Care Provider [phone] Reason for Visit * Reason Comments Med Refill Encounter Details Date Type Department Care Team ([facility] st Contact Info) Description 11/29/2023 Refill [facility] MED[facility] [address] [place], [place] [phone] Name, MD Jaspreet [address] [place], [place] [phone] Social History Tobacco Use Types Packs/Day Years [...] Care Team (Late st Contact Info) Description 07/14/2025 9:30 AM EST Office Visit [facility] [address] [place] [phone] Name, MD Jaspreet [address] [place] [address] documented as of this encounter Visit Diagnoses Not on filedocumented in this encounter Additional Health Concerns Assessment Noted Time PHQ-9 Depression Total Score: 0 10/10/19 24 3:18 PM EDT documented as of this encounter Care Teams Dressage Instructor Relationship Specialty Start Date End Date Name, MD Jaspreet [address] [place] [address] PCP - General Family Medicine 08/25/15 documented as of this encounter
--- OUTSIDE RECORDS SUMMARY | 2025-05-04 10:26 | XMS_ITS | Encounter Summary ---
Author Organization [employer] Address 75 [facility] 7t [place] [address] Care Team Providers Care Landscape Nurseryman Name Role Phone Name, Jaspreet SELLERS Primary Care Provider [phone] Reason for Visit * Reason Comments Med Refill Encounter Details Date Type Department Care Team ([facility] st Contact Info) Description 06/13/2024 Refill [facility] MED[facility]INE 230 [place], [place] [phone] Kenyetta Ann MD [address] [place], [place] [phone] Chronic low back pain, unspecified back pain [...] Description 07/14/2025 9:30 AM EST Office Visit [facility] MED[facility] [address] [place] [phone] Name, MD Jaspreet [address] [place] [address] documented as of this encounter Visit Diagnoses Diagnosis Chronic low back pain, unspecified back pain laterality, unspecified whether sciatica present documented in this encounter Additional Health Concerns Assessment Noted Time PHQ-9 Depression Total Score: 0 10/10/19 24 3:18 PM EDT documented as of this encounter Care Teams Landscape Nurseryman Relationship Specialty Start Date End Date NameJaspreet MD [address] [place] [address] PCP - General Family Medicine 08/25/15 documented as of this encounter
--- OUTSIDE RECORDS SUMMARY | 2025-05-04 10:26 | XMS_ITS | Encounter Summary ---
Author Organization [facility] Address [address] [place] [address] Care Team Providers Care Human Resources Assistant Name Role Phone Name, Jaspreet SELLERS Primary Care Provider Unavailabl Loly Guillermo MD Primary Care Provider [phone] [facility], Pcp Primary Care Provider Niko e Encounter Details Date Type Department Care Team Description 11/09/2011 Sales And Events Coordinator Report Medical Records [address] [place] [address] Sebastien Back Social History Tobacco Use Types Packs/Day Years Used Date Smoking Tobacco: Former Cigarettes 3 10 Comments:quit 1994 Alcohol Use Standard Drinks/Week Comments No 0 (1 standard drink = 0.6 oz pur e alcohol) Sex Assigned at Date Recorded Not on file documented as of this encounter Plan of Treatment Not on file documented as of this encounter Visit Diagnoses Not on filedocumented in this encounter Care Teams Human Resources Assistant Relationship Specialty Start Date End Date Name, MD Jaspreet PCP - General 06/14/09 08/05/15 Loly Stallings MD [address] [place] [phone] PCP - General Internal Medicine 08/06/15 02/27/16 [facility], [address] [address] PCP - General Internal Medicine 02/28/16 documented as of this encounter
--- OUTSIDE RECORDS SUMMARY | 2025-05-04 10:26 | XMS_ITS | Encounter Summary ---
Author Organization [employer] Address 75 [facility] 7t [place] [address] Care Team Providers Care Fulfillment Representative Name Role Phone Name, Jaspreet SELLERS Primary Care Provider [phone] Reason for Visit * Reason Comments Med Refill Encounter Details Date Type Department Care Team ([facility] st Contact Info) Description 09/18/2024 Refill [facility] [address] [place], [place] [phone] Va Gordon MD [address] [place], [place] [phone] Controlled type 2 diabetes mellitus without complication, with long-term current use of insulin ([facility]) Social History Tobacco Use Types Packs/Day Years [...] Description 07/14/2025 9:30 AM EST Office Visit [facility] [address] [place] [address] Name, MD Jaspreet [address] [place] [address] documented as of this encounter Visit Diagnoses Diagnosis Controlled type 2 diabetes mellitus without complication, with long-term current use of insulin (HCC) documented in this encounter Additional Health Concerns Assessment Noted Time PHQ-9 Depression Total Score: 0 10/10/19 24 3:18 PM EDT documented as of this encounter Care Teams Fulfillment Representative Relationship Specialty Start Date End Date Jaspreet Sandoval MD [address] [place] [address] PCP - General Family Medicine 08/25/15 documented as of this encounter
--- OUTSIDE RECORDS SUMMARY | 2025-05-04 10:26 | XMS_ITS | Encounter Summary ---
Author Organization [facility] [facility] Address [address] [place] [address] Care Team Providers Care Bat Carrier Name Role Phone Name, Jaspreet SELLERS Primary Care Provider Unavailabl e Loly Stallings MD Primary Care Provider [phone] [facility], Pcp Primary Care Provider Niko e Encounter Details Date Type Department Care Team Description 10/15/2014 Release of Information Medical Records [address] [place] [address] Abstract, Provider Social History Tobacco Use Types Packs/Day Years Used Date Smoking Tobacco: Former Cigarettes 3 10 Smokeless Tobacco: Never Comments:quit 1994 Alcohol Use Standard Drinks/Week Comments No 0 (1 standard drink = 0.6 oz pur e alcohol) Sex Assigned at Date Recorded Not on file documented as of this encounter Plan of Treatment Not on file documented as of this encounter Visit Diagnoses Not on filedocumented in this encounter Care Teams Bat Carrier Relationship Specialty Start Date End Date Name, MD Jaspreet PCP - General 06/14/09 08/05/15 Loly Stallings MD [address] [place] [address] PCP - General Internal Medicine 08/06/15 02/27/16 [facility], Pcp [address] [place] [address] PCP - General Internal Medicine 02/28/16 documented as of this encounter
--- OUTSIDE RECORDS SUMMARY | 2025-05-04 10:26 | XMS_ITS | Encounter Summary ---
Author Organization [employer] Address 75 [facility] 7t [place] [address] Care Team Providers Care Rn Women Services Name Role Phone Name, Jaspreet SELLERS Primary Care Provider [phone] Reason for Visit * Reason Comments Med Refill Encounter Details Date Type Department Care Team ([facility] st Contact Info) Description 09/07/2023 Refill [facility] MEDICINE [address] [place], [place] [phone] Name, MD Jaspreet [address] [place], [place] [phone] Social History Tobacco Use Types Packs/Day Years [...] Description 07/14/2025 9:30 AM EST Office Visit [facility] [address] [place] [address] NameJaspreet MD [address] [place] [address] documented as of this encounter Visit Diagnoses Not on filedocumented in this encounter Additional Health Concerns Assessment Noted Time PHQ-9 Depression Total Score: 0 08/04/19 23 9:31 AM EST documented as of this encounter Care Teams Rn Women Services Relationship Specialty Start Date End Date Name, MD Jaspreet [address] [place] [address] PCP - General Family Medicine 08/25/15 documented as of this encounter
--- OUTSIDE RECORDS SUMMARY | 2025-05-04 10:26 | XMS_ITS | Encounter Summary ---
Author Organization [facility] Address [address] [place] [address] Care Team Providers Care Physical Therapy Resident Name Role Phone Name, Jaspreet SELLERS Primary Care Provider Unavailabl e Loly Stallings MD Primary Care Provider [phone] [facility], Pcp Primary Care Provider Unavailabl e Reason for Visit * Reason Onset Date Comments Follow-up Appt Unavailable 06/17/2012 Encounter Details Date Type Department Care Team Description 06/17/2012 Telephone Adult Medicine [address] [phone] Name, MD Jaspreet Follow-up Appt Unavailable Social History Tobacco Use Types Packs/Day Years Used Date Smoking Tobacco: Former Cigarettes 3 10 Smokeless Tobacco: Never Comments:quit 1994 Alcohol Use Standard Drinks/Week Comments No 0 (1 standard drink = 0.6 oz pur e alcohol) Sex Assigned at Date Recorded Not on file documented as of this encounter Miscellaneous Notes * Telephone Encounter - Suyapa Ceja R.N. - 06/17/2012 2:56 PM EST Pt booked for 08/12/12 at 10;[address] robison, message left for pt to call. He will need to confirm appointment or be rescheduled with triage. * Telephone Encounter - Nikole Velasquez - 06/17/2012 11:29 AM EST Follow up appointment not available. Please call patient to book-no open NON PUBLIC SLOTS. Appointment needed 08-17-[address] Robison documented in this encounter Plan of Treatment Not on file documented as of this encounter Visit Diagnoses Not on filedocumented in this encounter Care Teams Physical Therapy Resident Relationship Specialty Start Date End Date Name, MD Jaspreet PCP - General 06/14/09 08/05/15 Loly Stallings MD [address] [place] [address] PCP - General Internal Medicine 08/06/15 02/27/[address] [address] PCP - General Internal Medicine 02/28/16 documented as of this encounter
--- OUTSIDE RECORDS SUMMARY | 2025-05-04 10:26 | XMS_ITS | Clinical Summary ---
Author [facility] Address [address] [place] [address] Care Team Providers Care Cigarette Filter Inspector Name Role Phone Community, Pcp Primary Care Provider Unavailabl e Allergies Active Allergy Reactions Severity Noted Date Comments Penicillins Hives/Urticaria 07/16/2009 Medications Medication Sig Dispensed Refills Start Date End Date Status gabapentin (NEURONTIN) 100 MG capsule Start with 100mg at night for 1 week; then increase to 100mg twice a day for 1 week; then increase to 100mg 3 times a day 90 Cap 5 03/10/2015 Active acetaminophen-codein e (TYLENOL #3) 300-30 MG per tablet TAKE 1 TABLET BY MOUTH TWICE DAILY PRNP 56 tablet 0 06/22/2015 Active diclofenac (VOLTAREN) 50 MG EC tablet Take 1 Tab by mouth 2 times daily. 60 Tab 1 07/02/2015 Active lisinopril (PRINIVIL,ZESTRIL) 40 MG tablet TAKE 1 TABLET BY MOUTH DAILY 90 Tab 0 02/14/2016 Active Active Problems Problem Noted Date DJD (degenerative joint disease), lumbos acral 10/14/2014 Venous insufficiency 06/17/2012 Overview: Patient had vein vascular surgery with [facility] on 04/2012 Heel spur 06/13/2011 HTN (hypertension) 07/16/2009 BPH (benign prostatic hyperplasia) 07/16 Neck pain 07/16/2009 Low back pain 07/16/2009 Overview: H/o back pain, had MRI and [facility]. Has been treated with injections and PT. Trace cataracts 07/16/2009 Overview: Both eyes. The patient follow in [place] Immunizations Name Administration Dates Next Due Influenza (> 6 Months) 04/16/2015,2013,04/18/2013, 012,06/13/2011,07/16/2009 Influenza H1N1 Pandemic Flu Vaccine 07/16/2009 Family History Relation Name Status Comments Brother 1 AIDS Brother 2 Alive Brother 3 Alive Daughter 1 Alive Daughter 2 Alive Daughter 3 Alive Father CA? patient osman s not know what type Mother Alive cad, demetia Sister 1 Alive Sister 2 Alive Sister 3 Alive Son Alive AUTISM Social History Tobacco Use Types Packs/Day Years Used Date Smoking Tobacco: Former Cigarettes 3 10 Smokeless Tobacco: Never Comments:quit 1994 Alcohol Use Standard Drinks/Week Comments No 0 (1 standard drink = 0.6 oz pur e alcohol) Sex Assigned at Date Recorded Not on file Last Filed Vital Signs Vital Sign Reading Time Taken Comments Blood Pressure 122/78 07/02/2015 10:36 AM EST Pulse 80 07/02/2015 10:36 AM EST Temperature 36.9 C (98.5 F) 07/02/2015 10:36 AM EST Respiratory Rate 20 07/02/2015 10:3 6 AM EST Oxygen Saturation - - Inhaled Oxygen Concentration - - Weight 121.7 kg (268 lb 3.2 oz) 015 10:36 AM EST Height 180.3 cm (5' 11 ) 07/02/2015 10: 36 AM EST Body Mass Index 37.41 07/02/2015 10:36 AM EST Plan of Treatment Health Maintenance Due Date Last Done Comments Covid-19 Vaccine (#1) 1960 DEPRESSION SCREEN 1972 TOBACCO CHECK/ADVISE 1978 DTAP/TDAP/TD (1 - Tdap) 1979 SHINGLES VACCINE (1 of 2) 2010 COLON CANCER SCREENING 06/13/2017 7 (External Completion) CHOLESTEROL SCREENING 10/15/2019 10/14/2014 , 04/18/2013, 08/23/2011, Additional history exists BMI CHECK/ADVISE 07/30/2024 INFLUENZA (#1) 2025 04/16/2015, 05/30, 04/18/2013, Additional history exists PNEUMOCOCCAL VACCINE FOR HIG H RISK PATIENTS (#1) 2025 HEPATITIS C SCREENING Completed 07/19/2009 Care Teams Cigarette Filter Inspector Relationship Specialty Start Date End Date Community, Pcp PCP - General Internal Medicine 02/28/16
--- OUTSIDE RECORDS SUMMARY | 2025-05-04 10:26 | XMS_ITS | Encounter Summary ---
Author Organization [facility] Address [address] [place] [address] Care Team Providers Care Linux Network Engineer Name Role Phone Name, Jaspreet SELLERS Primary Care Provider Unavailabl e Loly Stallings MD Primary Care Provider [phone] [facility], Pcp Primary Care Provider Unavailabl e Encounter Details Date Type Department Care Team Description 10/15/2012 Procurement Officer Report Medical Records [address] [place] [address] Viktor Parks Social History Tobacco Use Types Packs/Day Years [...] on filedocumented in this encounter Care Teams Linux Network Engineer Relationship Specialty Start Date End Date Name, MD Jaspreet PCP - General 06/14/09 08/05/15 Loly Stallings MD [address] [place] [address] [phone] PCP - General Internal Medicine 08/06/15 02/27/16 [facility], Pcp [address] [place] [address] PCP - General Internal Medicine 02/28/16 documented as of this encounter
--- OUTSIDE RECORDS SUMMARY | 2025-05-04 10:26 | XMS_ITS | Encounter Summary ---
Author Organization [employer] [facility] Address [address] [place] [address] 7 [place] [address] Care Team Providers Care Facilities Engineering Manager Name Role Phone Name, Jaspreet SELLERS Primary Care Provider [phone] Encounter Details Date Type Department Care Team (Late Contact Info) Description 12/21/2022 Abstract [facility] MED[facility]INE [address] [place] [address] [phone] NameJaspreet MD [address] [place] [address] [phone] Social History Tobacco Use Types Packs/Day Years [...] Encounters Date Type Department Care Team (Late Contact Info) Description 07/14/2025 9:30 AM EST Office Visit [address] [phone] NameJaspreet MD [address] [place] [address] [phone] documented as of this encounter Procedures Procedure Name Priority Date/Time Associated Diagnosis Comments COLONOSCOPY Routine 04/26/2021 11:41 AM EDT documented in this encounter Results * Hm Colonoscopy (04/26/2021 11:41 AM EDT) Colonoscopy Normal Normal Impressions Lisa Ricardo - 04/26/2021 11:41 AM EDT Recommended 1 year follow up Historical Provider HEALTH MAINTENANCE Final Result documented in this encounter Visit Diagnoses Not on filedocumented in this encounter Additional Health Concerns Assessment Noted Time PHQ-9 Depression Total Score: 0 08/04/19 23 9:31 AM EST documented as of this encounter Care Teams Facilities Engineering Manager Relationship Specialty Start Date End Date Name, MD Jaspreet [address] [place] [address] PCP - General Family Medicine 08/25/15 documented as of this encounter
--- OUTSIDE RECORDS SUMMARY | 2025-05-04 10:26 | XMS_ITS | Encounter Summary ---
Author Organization [facility] Address [address] [place] [address] Care Team Providers Care Pie Icer Machine Name Role Phone Name, Jaspreet SELLERS Primary Care Provider Unavailabl e Loly Stallings MD Primary Care Provider [phone] [facility], Pcp Primary Care Provider Unavailabl e Encounter Details Date Type Department Care Team Description 08/28/2012 Store Specialist Report Medical Records [address] [place] [address] Sebastien Back Social History Tobacco Use Types [...] on filedocumented in this encounter Care Teams Pie Icer Machine Relationship Specialty Start Date End Date Name, MD Jaspreet PCP - General 06/14/09 08/05/15 Loly Stallings MD [address] [place] [address] [phone] PCP - General Internal Medicine 08/06/15 02/27/16 [facility], [address] [address] PCP - General Internal Medicine 02/28/16 documented as of this encounter
--- OUTSIDE RECORDS SUMMARY | 2025-05-04 10:26 | XMS_ITS | Encounter Summary ---
Author Organization [facility] Address [address] [place] [address] Care Team Providers Care Campground Caretaker Name Role Phone Name, Jaspreet SELLERS Primary Care Provider Unavailabl e Loly Stallings MD Primary Care Provider [phone] [facility], Pcp Primary Care Provider Unavailabl e Reason for Referral * Radiology Services - Authorized/Booked Specialty Diagnoses / Procedures Referred By Michael monteiro Referred To Contact Radiology Diagnoses Renal cyst, right Procedures CAT SCANS OF ABDOMEN W/WO CONTRAST Lien Ramirez PA-C [address] [place] [address] Ct[address] [id number] Referral ID Status Reason Start Date Expiration Date V isits Requested Visits Authorized NO AUTH REQUIRED Authorized/ Booked 05/20/2013 06/20/2013 1 1 Encounter Details Date Type Department Care Team Description 05/20/2013 Telephone [place] [address] Lien Ramirez PA-C Social History Tobacco Use Types Packs/Day Years Used Date Smoking Tobacco: Former Cigarettes 3 10 Smokeless Tobacco: Never Comments:quit 1994 Alcohol Use Standard Drinks/Week Comments No 0 (1 standard drink = 0.6 oz pur e alcohol) Sex Assigned at Date Recorded Not on file documented as of this encounter Plan of Treatment Not on file documented as of this encounter Results * CAT SCANS OF ABDOMEN W/WO CONTRAST (06/10/2013 3:12 PM EST) 06/10/2013 3:39 PM EST Impressions [place] OTHER EXTERNAL - 06/10/2013 3:54 PM EST IMPRESSION: 3.3 cm right renal cyst. Hepatic steatosis. Narrative [place] OTHER EXTERNAL - 06/10/2013 3:54 PM EST CAT SCANS OF ABDOMEN W/WO CONTRAST HISTORY: Right renal cyst with atypical features. Prior: MR lumbar spine 05/14/2013. PROCEDURE: Multiple axial images are obtained from the upper abdomen and pelvis. Oral and IV contrast was administered. 110 cc Optiray-240 contrast was administered. Series were obtained prior to administration of contrast, and 100 sec and 3 minutes following contrast administration (renal mass protocol). FINDINGS: There is a 2.1 x 3.3 x 2.8 cm cyst of the midpole of the right kidney. This shows no significant enhancement. There is no hydronephrosis and no perinephric collections. The nephrographic and excretory phases of the study are normal. The right kidney measures [13.2] cm in length. The left kidney measures [13.2] cm in length. No filling defects are seen in either renal collecting system or either proximal ureter. The urinary bladder and mid and distal ureters are not imaged. There is decreased attenuation liver consistent with diffuse fatty infiltration. The pancreas, adrenal glands, and spleen are grossly unremarkable. The gallbladder is present. The aorta is normal in caliber. The lung bases are clear. Procedure Note Nikole Ruiz MD - 06/10/2013 CAT SCANS OF ABDOMEN W/WO CONTRAST HISTORY: Right renal cyst with atypical features. Prior: MR lumbar spine 05/14/2013. PROCEDURE: Multiple axial images are obtained from the upper abdomen andpelvis. Oral and IV contrast was administered. 110 cc Optiray-240 contrast was administered.Series were obtained prior to administration of contrast, and 100 sec and 3 minutes followingcontrast administration (renal mass protocol). FINDINGS: There is a 2.1 x 3.3 x 2.8 cm cyst of the midpole of the rightkidney. This shows no significant enhancement. There is no hydronephrosis and no perinephric collections. Thenephrographic and excretory phases of the study are normal. The right kidney measures [13.2] cm inlength. The left kidney measures [13.2] cm in length. No filling defects are seen in either renalcollecting system or either proximal ureter. The urinary bladder and mid and distal ureters arenot imaged. There is decreased attenuation liver consistent with diffuse fattyinfiltration. The pancreas, adrenal glands, and spleen are grossly unremarkable. The gallbladder ispresent. The aorta is normal in caliber. The lung bases are clear. IMPRESSION: 3.3 cm right renal cyst. Hepatic steatosis. Lien ALLISON-Hossein CT SCANS [facility] OTHER EXTERNAL documented in this encounter Visit Diagnoses Diagnosis Renal cyst, right- Primary Unspecified congenital cystic kidney disease Renal cyst, right Unspecified congenital cystic kidney disease documented in this encounter Care Teams Campground Caretaker Relationship Specialty Start Date End Date Name, MD Jaspreet PCP - General 06/14/09 08/05/15 Loly Stallings MD [address] [place] [phone] PCP - General Internal Medicine 08/06/15 02/27/16 [facility] [address] [place] [id number] PCP - General Internal Medicine 02/28/16 documented as of this encounter
--- OUTSIDE RECORDS SUMMARY | 2025-05-04 10:26 | XMS_ITS | Encounter Summary ---
Author Organization [facility] Address [address] [place] [address] [address] [place] [address] Care Team Providers Care Cook Jelly Name Role Phone Name, Jaspreet SELLERS Primary Care Provider [phone] Reason for Visit * Reason Comments Med Refill Encounter Details Date Type Department Care Team (Late st Contact Info) Description 11/08/2022 Refill [facility] [address] [place] [address] [phone] NameJaspreet MD [address] [place] [address] [phone] Social History Tobacco Use Types Packs/Day Years [...] Description 07/14/2025 9:30 AM EST Office Visit [facility] [address] [place] [address] [phone] Jaspreet Sandoval MD [address] [place] [address] [phone] documented as of this encounter Visit Diagnoses Not on filedocumented in this encounter Additional Health Concerns Assessment Noted Time PHQ-9 Depression Total Score: 0 08/04/19 9:31 AM EST documented as of this encounter Care Teams Cook Jelly Relationship Specialty Start Date End Date Name, MD Jaspreet [address] [place] [address] PCP - General Family Medicine 08/25/15 documented as of this encounter
--- OUTSIDE RECORDS SUMMARY | 2025-05-04 10:26 | XMS_ITS | Encounter Summary ---
Author Organization [employer] Address [address] [facility] [address] [place] [address] Care Team Providers Care Adobe Flex Developer Name Role Phone Name, Jaspreet SELLERS Primary Care Provider [phone] Reason for Visit * Reason Comments Med Refill Encounter Details Date Type Department Care Team ([facility] st Contact Info) Description 06/13/[address] [facility] [address] [place], [place] [phone] Cyndie Mireles FNP [address] [place], [place] [phone] Social History Tobacco Use Types Packs/Day Years [...] Description 07/14/2025 9:30 AM EST Office Visit [facility] [address] [place] [phone] Name, MD Jaspreet [address] [place] [phone] documented as of this encounter Visit Diagnoses Not on filedocumented in this encounter Additional Health Concerns Assessment Noted Time PHQ-9 Depression Total Score: 0 10/10/19 24 3:18 PM EDT documented as of this encounter Care Teams Adobe Flex Developer Relationship Specialty Start Date End Date Name, MD Jaspreet [address] [place] [id number] PCP - General Family Medicine 08/25/15 documented as of this encounter
--- OUTSIDE RECORDS SUMMARY | 2025-05-04 10:26 | XMS_ITS | Clinical Summary ---
Author Organization [facility] [facility] Address [address] [place] [address] 7[address] [place] [address] Care Team Providers Care Manual Equipment Mechanic Name Role Phone Name, Jaspreet SELLERS Primary Care Provider [phone] Allergies Active Allergy Reactions Criticality Noted Date Comments Lisinopril Swelling 03/11/2021 Penicillins Hives,Rash Low 07/16/2009 Medications hydrocortisone 1 % cream Apply topically to affected area(s) two times daily 01/08/20 21 Active lidocaine-priloca ine (Emla) 2.5-2.5 % cream apply to affected area four times daily as needed for pain 03/03/20 22 Active insulin pen needle (Comfort EZ Pen [place]) 32G x 4 mm misc USE TO INJECT INSULIN ONCE DAILY 100 each 1 03/25/20 24 Active sildenafil (Viagra) 50 MG tabletIndications :Type 2 diabetes mellitus without complication, unspecified whether termite technician insulin use Take 1 tablet (50 mg) by mouth if needed for erectile dysfunction for up to 10 days. 10 tablet 3 04/09/20 24 Active Accu-Chek Guide test stripIndications: Type 2 diabetes mellitus without complications (HCC) USE TO TEST FINGER STICK BLOOD SUGAR 4 (FOUR) TIMES DAILY 200 strip 11 05/23/20 24 Active amLODIPine (Norvasc) 5 MG tabletIndications :Benign essential hypertension TAKE 1 TABLET BY MOUTH EVERY MORNING 30 tablet 11 07/15/20 24 Active gabapentin (Neurontin) 300 MG capsule Take 1 capsule (300 mg) by mouth 3 times daily. 90 capsule 11 07/15/20 24 025 Active Accu-Chek Softclix Lancets lancetsIndication s:Type 2 diabetes mellitus without complications (HCC) USE TO TEST FINGER STICK BLOOD SUGAR 4 (FOUR) TIMES DAILY 100 each 5 09/10/19 25 Active atorvastatin (Lipitor) 20 MG tabletIndications :Hypercholesterol emia TAKE 1 TABLET BY MOUTH ONCE DAILY 30 tablet 09/16/19 25 Active insulin glargine (Lantus SoloStar) 100 UNIT/ML penIndications:Co ntrolled type 2 diabetes mellitus without complication, with long-term current use of insulin (HCC) INJECT 30 UNITS SUBCUTANEOUSLY ONCE DAILY 9 mL 09/18/19 25 Active tamsulosin (Flomax) 0.4 MG 24 hr capsule TAKE 1 CAPSULE BY MOUTH ONCE DAILY IN THE MORNING 30 capsule 10/07/19 25 Active chlorthalidone (Hygroton) 25 MG tablet TAKE 1 TABLET BY MOUTH ONCE DAILY IN THE EVENING 30 tablet 11/04/19 25 Active Alcohol Swabs (Alcohol Pads) 70 % pads USE DIRECTED 4 (FOUR) TIMES DAILY 100 each 11/21/19 25 Active Diclofenac Sodium 1 % gelIndications:Ca rpal tunnel syndrome, unspecified laterality APPLY 2 gramos TOPICALLY two (2) times a day 100 g 1 12/12/19 25 Active metFORMIN (Glucophage) 500 MG tablet TAKE 1 TABLET BY MOUTH two (2) times a day (IN THE MORNING AND IN THE EVENING) 60 tablet 01/08/20 25 Active DULoxetine (Cymbalta) [address] capsuleIndication s:Chronic low back pain, unspecified back pain laterality, unspecified whether sciatica present TAKE 1 CAPSULE BY MOUTH ONCE DAILY 30 capsule 01/23/20 25 Active Acetaminophen Extra Strength 500 MG tabletIndications :Acute non intractable tension-type headache TAKE 2 TABLETS BY MOUTH EVERY 8 HOURS NEEDED FOR HEADACHE 30 tablet 01/23/20 25 Active celecoxib (CeleBREX) 200 MG capsule Take 1 capsule (200 mg) by mouth 2 times daily. 60 capsule 03/10/20 25 026 Active hydrALAZINE (Apresoline) 25 MG tabletIndications :Benign essential hypertension TAKE 1 TABLET BY MOUTH two (2) times a day WITH A MEAL 60 tablet 03/11/20 25 Active Active Problems Problem Noted Date Diagnosed Date [...] Encounters Date Type Department Care Team Description 04/23/2025 Telephone [facility] [address] [place] [address] Alia Stewart MA nov recalls 03/24/2025 Telephone [facility] [address] [place], [place] [phone] Sapna Christian DO 03/22/2025 Orders Only [facility] [address] [place], [place] [phone] Sapna Christian DO Renal cyst (Primary Dx) 03/11/2025 Refill [facility] [address] [place] [address] Jaspreet Sandoval MD Benign essential hypertension 03/10/2025 1:45 PM EDT Office Visit [facility] [address] [place] [address] Jaspreet Sandoval MD Type 2 diabetes mellitus without complication, unspecified whether nursing home insulin use ([facility]) (Primary Dx); Benign cyst of right kidney; Primary hypertension; Degeneration of intervertebral disc of lumbosacral region, unspecified whether pain present; Benign prostatic hyperplasia, unspecified whether lower urinary tract symptoms present 03/10/2025 Telephone [facility] [address] [place] [address] Jaspreet Sandoval MD Results 03/10/2025 Travel 02/05/2025 Telephone [facility] [address] [place] [phone] Teodora Barbosa [place] Appointment Request 02/05/[address] [address] Jaspreet Sandoval MD Hypercholesterolemia from Last 3 Months Immunizations Immunization Administration Dates Next Due Influenza injectable quadriv alent IIV4 with preservative 05/10/2018,04/25/2017,05/24/2016 Influenza injectable quadriv alent preservative free 07/13/2023,05/18/2022,04/29/2021,2018 Influenza, IIV3, injectable 04/16/2015,1 08/15/2013,04/18/2013,2011,06/13/2011,07/16/2009 Influenza, seasonal, injecta ble, preservative free 04/09/2024 Novel [id number], preservative-free 07/16/2009 Pfizer Covid-19 Vaccine 12+ 07/13/2023 [...] Answer Date Recorded Patient Health Questionnaire-9 Score 13 03/10/2025 Patient Health Questionnaire-9 Score 13 03/10/2025 Last PHQ-9: Questionnaire Data Not on file 0 03/10/2025 Housing Stability Answer Date Recorded What is [...] Answer Date Recorded Patient Health Questionnaire-2 Score 3 03/10/2025 Internet Access Answer Date Recorded Internet Access [...] Sign Reading Time Taken Comments Blood Pressure 136/76 03/10/2025 1:40 PM EDT Pulse 96 03/10/2025 1:40 PM EDT Temperature 36.4 C (97.5 F) 03/10/2025 1:40 PM EDT Respiratory Rate 18 03/10/2025 1:40 PM EDT Oxygen Saturation 95% 03/10/2025 1:40 PM EDT Inhaled Oxygen Concentration - - Weight 118 kg (260 lb 3.2 oz) 03/10/2025 1:40 PM EDT Height 180.3 cm (5' 11 ) 03/10/2025 1:40 PM EDT Body Mass Index 36.29 03/10/2025 1:40 PM EDT Plan of Treatment Upcoming Encounters Date Type Department Care Team (Late st Contact Info) Description 07/14/2025 9:30 AM EST Office Visit [facility] [address] [place] [address] Name, MD Jaspreet [address] [place] [address] Health Maintenance Due Date Last Done Comments CT Colonography 1960 FIT DNA/Cologuard 1960 FIT 1960 FOBT 1960 HIV Screening 1960 Sigmoidoscopy 1960 Derm Melanoma Skin Check 1960 Eye Exam 1970 Hepatitis C Screening 1978 RSV Patients and Patients Aged 60 years or older (1 - Risk 60-74 years 1-dose series) 2020 Diabetes: Foot Exam 07/13/2024 07/13/2023, 07/13/2023, 07/13/2023, Additional history exists COVID-19 Vaccine ( season) 2025 07/13/2023, 07/21/2021, 12/22/2020, Additional history exists Influenza Vaccine (#1) 2025 , 07/13/2023, 05/18/2022, Additional history exists Diabetes: Hemoglobin A1C 06/05/2025 025, 04/09/2024, 11/09/2023, Additional history exists Diabetes: Urine Protein Screening 07/15/2025 07/15/2024, 03/30/2023, 09/15/2022, Additional history exists Lipid Panel 07/15/2025 07/15/2024, 0907/2022, 09/15/2022, Additional history exists Depression Monitoring 09/10/2025 03/10/2025, 025 Alcohol/Substance Use Screening 12/03/2025 12/03/2024 Disability Screening 12/03/2025 12/03/2024 SDOH Screening 12/03/2025 12/03/2024 Tobacco Screening 03/10/2026 03/10/2025 Colonoscopy 03/31/2026 04/26/2021, 03/31/2016 Colorectal Cancer Screening 03/31/2026 DTaP/Tdap/Td Vaccines (2 - Td or Tdap) 10/31/2026 10/31/2016 Zoster Vaccines Completed 02/15/2022, 11/02/2021 Pneumococcal Vaccine: 50+ Years Completed 03/30/2023 HIB Vaccines Aged Out No longer eligi [...] patient's age to complete this topic Meningococcal B Vaccine Aged Out No l onger eligible based on patient's age to complete [...] Procedure Name Priority Date/Time Associated Diagnosis Comments PSA, TOTAL Routine 03/10/2025 2:25 PM EDT Benign prostatic hyperplasia, unspecified whether lower urinary tract symptoms present POCT GLUCOSE Routine 03/10/2025 1:48 PM EDT Type 2 diabetes mellitus without complication, unspecified whether termite technician insulin use ([facility]) US RENAL COMPLETE Routine 02/19/2025 2:5 2 PM EDT POCT GLYCATED HEMOGLOBIN, TOTAL Routine 12/03/2024 11:20 AM EDT Controlled type 2 diabetes mellitus without complication, with long-term current use of insulin ([facility]) ALBUMIN, RANDOM URINE W/CREATININE Routine 07/15/2024 9:37 AM EST Type 2 diabetes mellitus without complication, unspecified whether termite technician insulin use ([facility]) Benign essential hypertension Obstructive sleep apnea syndrome LIPID PANEL, STANDARD Routine 07/15/2024 9:37 AM EST Type 2 diabetes mellitus without complication, unspecified whether termite technician insulin use ([facility]) Benign essential hypertension Obstructive sleep apnea syndrome HM COLONOSCOPY Routine 04/26/2021 11:41 AM EDT from Last 3 Months or Most Recently Relevant to Health Maintenance Results * PSA,Total (03/10/2025 2:25 PM EDT) Prostate Specific Antigen 1.04 <0.05 - 4.0 ng/mL [facility] Comment:PSA methodology: Jacque Wagner i ChemiluminescentMicroparticle Immunoassay (CMIA) Blood Venous blood specimen / Unknown 03/10/2025 2:25 PM EDT 03/10/2025 5:40 PM EDT us Jaspreet Sandoval MD LAB BLOOD ORDERABLES Final Resul t [facility] [address] [place] [address] [phone] * POCT Glucose (03/10/2025 1:48 PM EDT) Glucose Blood, POC 119 60 - 200 mg/dL QC Media Lot # [id number] Lot# Expiration Date Blood Capillary blood specimen / Unknown 03/10/2025 1:48 PM EDT us Jaspreet Sandoval MD POINT OF CARE TEST ENTER/EDIT OR DERABLES Final Result * US Renal Complete (02/19/2025 2:52 PM EDT) Anatomical Region Laterality Modality Kidney Ultrasound 02/19/2025 2:52 PM EDT Narrative 02/19/2025 2:53 PM EDT [address] [address] Ultrasound Report Signed Patient: Sebastien Bai MR#: [id number] : 1960 Acct:[id number] Age/Sex: 64 / M ADM Date: 02/18/25 Loc: HO.US Attending Dr: Sapna Christian DO Ordering Physician: Sapna Christian DO Date of Service: 02/18/25 Procedure(s): US renal BI Accession Number(s): [id number] cc: Sapna Christian DO; Name,Jaspreet SELLERS CLINICAL HISTORY: indeterminate R renal lesion on CT for further eval US Renal Comparison: CT/SR - CT ABDOMEN PELVIS W IV CON - 01/07/25 10:28 EDT Findings: Right kidney normal size and echotexture, 13 cm length. There is a 5.0 x 4.6 x 4.3 cm cyst within the right kidney. No obvious associated blood flow. Wall thickening and foci of wall calcification are noted. Left kidney normal size and echotexture, 13.2 cm length. No hydronephrosis of either kidney. Normal color Doppler IMPRESSION: 1. There is a 5 cm cyst within the right kidney. Although there is no appreciable blood flow on ultrasound, the wall of the cyst appears thickened and the prior CT scan suggested the possibility of but did not evaluate for associated wall enhancement. Based on both ultrasound and CT appearance, this cyst could represent either aBosniak 2F cyst or a Bosniak 3 cyst. As these categories have different management recommendations, suggest further evaluation with multiphase CT versus MRI to include both pre and postcontrast images. This document has been electronically signed by: Patience Scott MD on 02/19/2025 14:52:48 Dictated By: Patience Scott MD Signed By: <Electronically signed by Patience Scott MD in OV> 02/19/25 1453 DD/ 1452 TD/TT: 02/19/[address] Machinery Inspector: Procedure Note Donotuseinterpreter, Image - 02/19/[address] [address] Ultrasound Report Signed Patient: Augustina Bai#: [id number] : 1960Acct:[id number] Age/Sex: 64 / MADM Date: 02/18/25 Loc: HO.US Attending Dr: Sapna Christian DO Ordering Physician: Sapna Christian DO Date of Service: 02/18/25 Procedure(s): US renal BI Accession Number(s): [id number] cc: Sapna Christian DO; Name,Jaspreet SELLERS CLINICAL HISTORY: indeterminate R renal lesion on CT for further eval US Renal Comparison: CT/SR - CT ABDOMEN PELVIS W IV CON - 01/07/25 10:28 EDT Findings: Right kidney normal size and echotexture, 13 cm length. There is a 5.0 x 4.6 x 4.3 cm cyst within the right kidney. No obvious associated blood flow. Wall thickening and foci of wall calcification are noted. Left kidney normal size and echotexture, 13.2 cm length. No hydronephrosis of either kidney. Normal color Doppler IMPRESSION: 1. There is a 5 cm cyst within the right kidney. Although there is no appreciable blood flow on ultrasound, the wall of the cyst appears thickened and the prior CT scan suggested the possibility of but did not evaluate for associated wall enhancement. Based on both ultrasound and CT appearance, this cyst could represent either aBosniak 2F cyst or a Bosniak 3 cyst. As these categories have different management recommendations, suggest further evaluation with multiphase CT versus MRI to include both pre and postcontrast images. This document has been electronically signed by: Patience Scott MD on 02/19/2025 14:52:48 Dictated By: Patience Scott MD Signed By: <Electronically signed by Patience Scott MD in OV> 02/19/25 1453 DD/ 1452 TD/TT: 02/19/[address] Machinery Inspector: us Sapna Christian DO IMG US PROCEDURES Edited Res ult - Final * POCT HGB A1C (12/03/2024 11:20 AM EDT) Hemoglobin A1C 5.8 4.0 - 6.0 % QC Media Lot # [id number] Lot# Expiration Date Blood 12/03/2024 11:2 0 AM EDT us Kindra Sinha DRUG INSPECTOR POINT OF CARE TEST ENTER/EDIT ORDERABLES Final Result * (ABNORMAL) Albumin, Random Urine W/Creatinine (07/15/2024 9:37 AM EST) Creatinine, Urine 284.10 mg/dL [facility] Microalbumin Urine 207.0 mg/L H [facility] Microalbum Creatinine Ratio Ur 72.8(H) <30 ug/mg cr [facility] Comment:Albumin/Creatinine R atio Reference Ranges: Normal: < 30 ug/mg creatinine Microalbuminuria: 30 - 300 ug/mg creatinineClinical Albuminuria: > 300 ug/mg creatinine Urine (Urine, Random) 07/15/2024 9:37 AM EST 07/15/2024 11:19 AM EST us Jaspreet Sandoval MD LAB URINE ORDERABLES Final Resul t Performing Organization Address City/State/[facility] Co de Phone Number [facility] [address] [place] [phone] * Lipid Panel, Standard (07/15/2024 9:37 AM EST) Triglycerides 125 <150 mg/dL [facility] Comment:Desirable Triglyceri de: less than 150 mg/dLBorderline High Triglyceride 150-199 mg/dLHigh Triglyceride: 200-499 mg/dLVery High Triglyceride: greater than or equal to 5OO mg/dL Cholesterol 148 <200 mg/dL [facility] Comment:Desirable Cholestero l: less than 200 mg/dLBorderline High Cholesterol: 200-239 mg/dLHigh Cholesterol: greater than 239 mg/dL LDL Cholesterol Calculated 75 <100 mg/dL [facility] Comment:Desirable LDL: less than 100 mg/dLNear Optimal/Above Optimal LDL: 110- 129 mg/dLBorderline High LDL: 130-159 mg/dLHigh LDL: 160-189 mg/dLVery High LDL: greater than or equal to 190 mg/dL HDL Cholesterol 48 >40 mg/dL [facility] Comment:Desirable HDL: great er than 40 mg/dL Note: This HDL assay may give artificially low results in patients with liver disease. Blood Venous blood specimen / Unknown 07/15/2024 9:37 AM EST 07/15/2024 11:00 AM EST us Jaspreet Name LAB BLOOD ORDERABLES Final Resul t [facility] [address] [place] [address] [phone] * Hm Colonoscopy (04/26/2021 11:41 AM EDT) Colonoscopy Normal Normal Impressions Lisa Ricardo - 04/26/2021 11:41 AM EDT Recommended 1 year follow up us Historical Provider HEALTH MAINTENANCE Final Result from Last 3 Months or Most Recently Relevant to Health [place] [id number] [facility] STANDARD Care Teams Manual Equipment Mechanic Relationship Specialty Start Date End Date Name, MD Jaspreet [address] [place] [address] PCP - General Family Medicine 08/25/15
--- OUTSIDE RECORDS SUMMARY | 2025-05-04 10:26 | XMS_ITS | Encounter Summary ---
Author Organization [facility] Address [address] [place] [address] Care Team Providers Care Finisher Special Stocks Name Role Phone Name, Jaspreet SELLERS Primary Care Provider Unavailabl e Loly Stallings MD Primary Care Provider [phone] [facility], [facility] Primary Care Provider Unavailben e Encounter Details Date Type Department Care Team Description 05/20/2013 Telephone Physiatry - [address] [phone] Lien Ramirez PA-C Social History Tobacco Use Types Packs/Day Years Used Date Smoking Tobacco: Former Cigarettes 3 10 Smokeless Tobacco: Never Comments:quit 1994 Alcohol Use Standard Drinks/Week Comments No 0 (1 standard drink = 0.6 oz pur e alcohol) Sex Assigned at Date Recorded Not on file documented as of this encounter Miscellaneous Notes * Telephone Encounter - Lien Ramirez PA-C - 05/20/2013 9:24 AM EDT I left voicemail for patient to return my call re: MRI results documented in this encounter Plan of Treatment Not on file documented as of this encounter Visit Diagnoses Not on filedocumented in this encounter Care Teams Finisher Special Stocks Relationship Specialty Start Date End Date Name, MD Jaspreet PCP - General 06/14/09 08/05/15 Loly Stallings MD [address] [place] [address] [phone] PCP - General Internal Medicine 08/06/15 02/27/16 [facility], [address] [address] PCP - General Internal Medicine 02/28/16 documented as of this encounter
--- OUTSIDE RECORDS SUMMARY | 2025-05-04 10:26 | XMS_ITS | Encounter Summary ---
Author Organization [facility] Address [address] [place] [address] Care Team Providers Care Acidity Tester Name Role Phone Community, Pcp Primary Care Provider Unavailabl e Encounter Details Date Type Department Care Team Description 04/11/2016 [facility] Medical Records [address] [place] [id number] Abstract, Provider Social History Tobacco Use Types [...] on filedocumented in this encounter Care Teams Acidity Tester Relationship Specialty Start Date End Date Community, Pcp PCP - General Internal Medicine 02/28/16 documented as of this encounter
--- OUTSIDE RECORDS SUMMARY | 2025-05-04 10:26 | XMS_ITS | Encounter Summary ---
Author Organization [employer] Address [address] [facility] 7t [place] [address] Care Team Providers Care Real Estate Professor Name Role Phone Name, Jaspreet SELLERS Primary Care Provider [phone] Reason for Visit * Reason Comments Med Refill Encounter Details Date Type Department Care Team ([facility] st Contact Info) Description 05/15/2023 Refill [facility] [address] [place], [place] [phone] [facility] [address] [place], [place] [phone] Benign essential hypertension Social History Tobacco Use [...] Description 07/14/2025 9:30 AM EST Office Visit [facility] [address] [place] [address] Name, MD Jaspreet [address] [place] [address] documented as of this encounter Visit Diagnoses Diagnosis Benign essential hypertension Essential hypertension, benign documented in this encounter Additional Health Concerns Assessment Noted Time PHQ-9 Depression Total Score: 0 08/04/19 23 9:31 AM EST documented as of this encounter Care Teams Real Estate Professor Relationship Specialty Start Date End Date NameJaspreet MD [address] [place] [address] PCP - General Family Medicine 08/25/15 documented as of this encounter
--- OUTSIDE RECORDS SUMMARY | 2025-05-04 10:26 | XMS_ITS | Encounter Summary ---
Author Organization [facility] Address [address] [place] [address] Care Team Providers Care Tape Stringer Name Role Phone Name, Jaspreet SELLERS Primary Care Provider Unavailabl e Loly Stallings MD Primary Care Provider [phone] [facility], Pcp Primary Care Provider Niko e Encounter Details Date Type Department Care Team Description 10/14/2014 Controlled Substance Contract with Plan Medical Records [address] [place] [id number] Abstract, Provider Social History Tobacco Use Types [...] on filedocumented in this encounter Care Teams Tape Stringer Relationship Specialty Start Date End Date Name, MD Jaspreet PCP - General 06/14/09 08/05/15 Loly Stallings MD [address] [place] [address] [phone] PCP - General Internal Medicine 08/06/15 02/27/16 [facility], [address] [address] PCP - General Internal Medicine 02/28/16 documented as of this encounter
--- OUTSIDE RECORDS SUMMARY | 2025-05-04 10:26 | XMS_ITS | Encounter Summary ---
Author Organization [employer] Address [address] [facility] 7t [place] [address] Care Team Providers Care Albacore Fishing Boat Crewman Name Role Phone Name, Jaspreet SELLERS Primary Care Provider [phone] Encounter Details Date Type Department Care Team (Late st Contact Info) Description 07/12/2022 Orders Only [facility] [address] [place], [place] [phone] Patience Umanzor, RN [address] [place], [place] [phone] Social History Tobacco Use Types Packs/Day Years [...] AM EST documented as of this encounter Functional Status * Over the past 2 weeks, how often have you been bothered by any of the following problems? Question Answer Date of Assessment Author Little interest or pleasure in doing things Not at all 07/14/2022 11:24 AM Selin Voss [place] Feeling down, depressed, or hopeless Not at all 07/14/2022 11:24 AM Selin Voss [place] Patient Health Questionnaire -2 Score 0 07/14/2022 11:24 AM Selin Voss [place] documented as of this encounter Plan of Treatment Upcoming Encounters Date Type Department Care Team (Late st Contact Info) Description 07/14/2025 9:30 AM EST Office Visit [facility] [address] [place] [address] Name, [place] [phone] documented as of this encounter Visit Diagnoses Not on filedocumented in this encounter Care Teams [employer] Fishing Boat Crewman Relationship Specialty Start Date End Date Name, [place] [address] PCP - General Family Medicine 08/25/15 documented as of this encounter
--- OUTSIDE RECORDS SUMMARY | 2025-05-04 10:26 | XMS_ITS | Encounter Summary ---
Author Organization [employer] [facility] Address [address] [place] [address] 7t [place] [address] Care Team Providers Care Mine Administrator Supervisor Name Role Phone Name, Jaspreet SELLERS Primary Care Provider [phone] Reason for Visit * Reason Comments Med Refill Encounter Details Date Type Department Care Team (Late st Contact Info) Description 02/08/2023 Refill [facility] [address] [place] [address] [phone] Cathy Grayson, ACCESS SPECIALIST [address] [place], [place] [phone] Benign essential hypertension Social History Tobacco Use [...] Description 07/14/2025 9:30 AM EST Office Visit [facility] [address] [place] [address] [phone] Name, MD Jaspreet [address] [place] [phone] documented as of this encounter Visit Diagnoses Diagnosis Benign essential hypertension Essential hypertension, benign documented in this encounter Additional Health Concerns Assessment Noted Time PHQ-9 Depression Total Score: 0 08/04/19 23 9:31 AM EST documented as of this encounter Care Teams Mine Administrator Supervisor Relationship Specialty Start Date End Date Name, MD Jaspreet [address] [place] [address] PCP - General Family Medicine 08/25/15 documented as of this encounter
--- OUTSIDE RECORDS SUMMARY | 2025-05-04 10:26 | XMS_ITS | Encounter Summary ---
Author Organization [facility] Address [address] [place] [address] Care Team Providers Care Merry Go Round Operator Name Role Phone Loly Stallings MD Primary Care Provider [phone] [facility], Pcp Primary Care Provider Unavailabl e Reason for Visit * Reason Onset Date Comments Medicare Wellness Visit 12/28/2015 Encounter Details Date Type Department Care Team Description 12/28/2015 Telephone ANNUAL WELLNESS [address] [phone] Wellness Nurse, [address] [phone] Medicare Wellness Visit Social History Tobacco Use Types Packs/Day Years Used Date Smoking Tobacco: Former Cigarettes 3 10 Smokeless Tobacco: Never Comments:quit 1994 Alcohol Use Standard Drinks/Week Comments No 0 (1 standard drink = 0.6 oz pur e alcohol) Sex Assigned at Date Recorded Not on file documented as of this encounter Miscellaneous Notes * Telephone Encounter - Eulogio Vanessa - 12/28/2015 11:57 AM EDT I called patient to schedule a Medicare Annual Wellness visit. The patient did not answer and a message was left on their answering machine to call back. If the patient returns my call, please try toreach me at my extension ([phone]). If I am available to speak with them, please transfer the call. If I am not available to take the patient call, please verify the telephone number that I can reach [facility] at and forward the telephone encounter to the [employer] # [id number]. I will call them backas soon as I am able. Thank You, Eulogio documented in this encounter Plan of Treatment Not on file documented as of this encounter Visit Diagnoses Not on filedocumented in this encounter Care Teams Merry Go Round Operator Relationship Specialty Start Date End Date Loly Stallings MD [address] [place] [phone] PCP - General Internal Medicine 08/06/15 02/27/16 [facility] [address] [place] [address] PCP - General Internal Medicine 02/28/16 documented as of this encounter
--- OUTSIDE RECORDS SUMMARY | 2025-05-04 10:26 | XMS_ITS | Encounter Summary ---
Author Organization [employer] Address [address] [facility] 7t [place] [address] Care Team Providers Care Immigration Services Officer Name Role Phone Name, Jaspreet SELLERS Primary Care Provider [phone] Encounter Details Date Type Department Care Team (Late st Contact Info) Description 09/18/[address] [facility] MEDICINE [address] [place], [place] [phone] Name, MD Jaspreet [address] [place], [place] [phone] Social History Tobacco Use Types Packs/Day Years [...] t he electric, gas, oil or water [employer] threatened to shut off services in your [...] Description 07/14/2025 9:30 AM EST Office Visit [facility] MED[facility] [address] [place] [phone] Name, MD Jaspreet [address] [place] [phone] documented as of this encounter Visit Diagnoses Not on filedocumented in this encounter Additional Health Concerns Assessment Noted Time PHQ-9 Depression Total Score: 0 10/10/19 24 3:18 PM EDT documented as of this encounter Care Teams Immigration Services Officer Relationship Specialty Start Date End Date Name, MD Jaspreet [address] [place] [phone] PCP - General Family Medicine 08/25/15 documented as of this encounter
--- OUTSIDE RECORDS SUMMARY | 2025-05-04 10:26 | XMS_ITS | Encounter Summary ---
Author Organization [facility] Address [address] [place] [address] Care Team Providers Care Hand Packer/Packager Name Role Phone Loly Stallings MD Primary Care Provider [phone] [facility], Pcp Primary Care Provider Unavailabl e Encounter Details Date Type Department Care Team Description 10/18/2015 Release of Information Medical Records [address] [place] [id number] Abstract, Provider Social History Tobacco Use Types [...] on filedocumented in this encounter Care Teams Hand Packer/Packager Relationship Specialty Start Date End Date Loly Stallings MD [address] [place] [address] [phone] PCP - General Internal Medicine 08/06/15 02/27/16 [facility], [address] [address] PCP - General Internal Medicine 02/28/16 documented as of this encounter
--- OUTSIDE RECORDS SUMMARY | 2025-05-04 10:26 | XMS_ITS | Encounter Summary ---
Author Organization [facility] Address [address] [place] [address] 7 [place] [address] Care Team Providers Care Boat Dispatcher Name Role Phone Name, Jaspreet SELLERS Primary Care Provider [phone] Reason for Visit * Reason Comments Med Refill Encounter Details Date Type Department Care Team (Late Contact Info) Description 09/02/2022 Refill [facility] [address] [place] [address] [phone] Name, MD Jaspreet [address] [place] [address] [phone] Right knee pain, unspecified chronicity Social History [...] Description 07/14/2025 9:30 AM EST Office Visit [facility] [address] [place] [address] [phone] Name, MD Jaspreet [address] [place] [address] [phone] documented as of this encounter Visit Diagnoses Diagnosis Right knee pain, unspecified chronicity documented in this encounter Additional Health Concerns Assessment Noted Time PHQ-9 Depression Total Score: 0 08/04/19 23 9:31 AM EST documented as of this encounter Care Teams Boat Dispatcher Relationship Specialty Start Date End Date Name, MD Jaspreet [address] [place] [address] PCP - General Family Medicine 08/25/15 documented as of this encounter
== END 2025-05-04 09:16 | disposition home or self-care (01) ==
LOC: HO.MRI 09:15
PROVIDERS: PCP Internal Medicine Geriatric Medicine; Visit Provider Family Medicine
DX: N28.1 Cyst of kidney, acquired (principal)
CPT/HCPCS: 74183; A9585

== ENCOUNTER 2025-07-14 10:07 | Outpatient (REF) | payer MEDICARE, SELFPAY ==
--- OUTSIDE RECORDS SUMMARY | 2025-07-14 09:30 | XMS_ITS | Encounter Summary ---
Author Organization [employer] Address [address] [place] [address] 7 [place] [address] Care Team Providers Care Woodworking Machine Feeder Name Role Phone Jaspreet Sandoval MD Primary Care Provider [phone] Reason for Referral * Consultation (Routine) - Authorized Specialty Diagnoses / Procedures Referred By Contdesirae t Referred To Contact Family Medicine Diagnoses Viral warts, unspecified type Jaspreet Sandoval MD [address] [place] [phone] Phone: tel: fax: Referral ID Status Reason Start Date Expiration Date Visits Requested Visits Authorized [id number] Authorized Specialty Services Required 07/14/2026 1 1 Reason for Visit * Reason Comments Annual Exam Encounter Details Date Type Department Care Team (Late st Contact Info) Description 07/14/2025 9:30 AM EST Office Visit [facility] MEDICINE [address] [place] [phone] Jaspreet Sandoval MD [address] [place] [phone] Type 2 diabetes mellitus with hyperglycemia, without long-term current use of insulin (HCC) (Primary Dx); Complex renal cyst; Viral warts, unspecified type; Encounter for immunization Social History Tobacco Use Types Packs/Day Years [...] Sign Reading Time Taken Comments Blood Pressure 130/90 07/14/2025 9:32 AM EST Pulse 84 07/14/2025 9:32 AM EST Temperature 36.9 C (98.5 F) 07/14/2025 9:32 AM EST Respiratory Rate 21 07/14/2025 9:32 AM EST Oxygen Saturation 95% 07/14/2025 9:32 AM EST Inhaled Oxygen Concentration - - Weight 118 kg (260 lb) 07/14/2025 9:32 AM EST Height 180.3 cm (5' 11 ) 07/14/2025 9:32 AM EST Body Mass Index 36.26 07/14/2025 9:32 AM EST documented in this encounter Progress Notes * Jaspreet Sandoval MD - 07/14/2025 9:30 AM EST Images from the original note were not included. Subjective Patient ID: Sebastien Bai is a 65 y.o. male who presents for Annual Exam. Patient comes for a follow-up visit. He is doing well. His blood sugar control is excellent. He denies episodes of hypoglycemia. His blood pressure is good as well. He is not having any chest pains or shortness of breath. He agreed with the flu vaccination today but refused the COVID vaccination. Since his last appointment he was seen at [facility] urology because of a complex renal cyst. He was recommended continued observation. He explains to me that he will have ultrasounds every 6 months instead of every year. He requested to see dermatology for a recurrent wart close to the bridge of the nose and he was referred as requested. Review of Systems Constitutional: Negative for chills, fatigue and fever. HENT: Negative for sore throat. Respiratory: Negative for cough, chest tightness and shortness of breath. Cardiovascular: Negative for chest pain, palpitations and leg swelling. Gastrointestinal: Negative for abdominal pain and blood in stool. Objective Vitals: 07/14/25 0932 BP: (!) 130/90 BP Location: Left arm Patient Position: Sitting BP Cuff Size: Large adult Pulse: 84 Resp: 21 Temp: 98.5 ??F (36.9 ??C) TempSrc: Oral SpO2: 95% Weight: 260 lb (118 kg) Height: 5' 11 (1.803 m) Physical Exam Constitutional: Appearance: Normal appearance. Cardiovascular: Rate and Rhythm: Normal rate and regular rhythm. Heart sounds: No murmur heard. Pulmonary: Effort: Pulmonary effort is normal. No respiratory distress. Breath sounds: No wheezing, rhonchi or rales. Abdominal: Palpations: Abdomen is soft. Tenderness: There is no abdominal tenderness. Musculoskeletal: Right lower leg: No edema. Left lower leg: No edema. Neurological: Mental Status: He is alert. Lab Results Component Value Date HGBA1C 5.9 (A) 07/14/2025 HGBA1C 5.8 12/03/2024 HGBA1C 5.7 04/09/2024 HGBA1C 6.1 (A) 11/09/2023 HGBA1C 5.6 03/30/2023 HGBA1C 5.6 09/15/2022 HGBA1C 5.6 08/04/2022 HGBA1C 5.3 09/30/2021 HGBA1C 13.5 (H) 02/18/2021 Albumin, Random Urine W/Creatinine Order: [id number] Status: Final result Dx: Type 2 diabetes mellitus without comp... Test Result Released: No (inaccessible in MyChart) 0 Result Notes 1 Topic Component Ref Range & Units (hover) 12 mo ago (07/15/24) 2 yr ago (03/30/23) 3 yr ago (02/15/22) 3 yr ago (09/30/21) 4 yr ago (02/18/21) Creatinine, Urine 284.10 163.76 Microalbumin Urine 207.0 48.0 3.2 R, CM 3.9 R, CM 18.9 R, CM Microalbum Creatinine Ratio Ur 72.8 High 29.3 High CM Assessment/Plan Diagnoses and all orders for this visit: Type 2 diabetes mellitus with hyperglycemia, without long-term current use of insulin ([facility]) Comments: Continue current dose of Lantus, metformin, statin. Continue current diet and exercise regimen. He had angioedema on BIANCA inhibitors in the past. Check fasting blood work listed below and urine for microalbumin. I am thinking about adding Jardiance to his medications and lowering his insulin. I willcontact him once I have the results. Orders: - POCT Glucose - POCT Hgb A1c - CBC auto differential; Future - Comprehensive Metabolic Panel; Future - Albumin, Random Urine W/Creatinine; Future - Lipid Panel, Standard; Future Complex renal cyst Comments: I will obtain most recent urology note. Continue regular follow-up with [facility] urology. Viral warts, unspecified type Comments: Patient was referred to dermatology as requested Orders: - Referral to [facility] Derm Skin Adult; Future Encounter for immunization - FLU VACCINE TRIVALENT HIGH DOSE [phone] (Fluzone) 65 yrs + Future Appointments Date Time Provider Department Center 10/13/2025 9:15 AM Jaspreet Sadnoval MD MEDICINE [facility] documented in this encounter Plan of Treatment Upcoming Encounters Date Type Department Care Team (Late st Contact Info) Description 10/13/2025 9:15 AM EDT Office Visit [facility] MEDICINE [address] [place] [address] Name, MD Jaspreet [address] [place] [address] Scheduled Referrals Name Type Priority Associated Diagnoses Orde r Schedule Referral to [facility] Derm Skin Adult Outpatient Referral Routine Viral warts, unspecified type Expected: 07/14/2025 (Approximate), Expires: 07/14/2026 documented as of this encounter Goals Goal Patient Goal Type Associated Problems Recent Progress Patient-Stated? Author Help patients manage their type 2 diabetes Care Plan Help patients manage their type 2 diabetes No Melany Menendez Weekly blood pressure task Care Plan Weekly blood pressure task No Melany Menendez Help patients manage their type 2 diabetes Care Plan Help patients manage their type 2 diabetes No Melany Menendez Patient has chronic kidney disease Care Plan Patient has chronic kidney disease No Melany Menendez Weekly blood pressure task Care Plan Weekly blood pressure task No Melany Menendez Patient has chronic kidney disease Care Plan Patient has chronic kidney disease No Melany Menendez Weekly blood pressure task Care Plan Weekly blood pressure task No Alia Stewart MA Weekly blood pressure task Care Plan Weekly blood pressure task No Alia Stewart [place] Patient has chronic kidney disease Care Plan Patient has chronic kidney disease No Alia Stewart [place] Patient has chronic kidney disease Care Plan Patient has chronic kidney disease No Alia Stewart MA Weekly blood pressure task Care Plan Weekly blood pressure task No Alia Stewart MA Weekly blood pressure task Care Plan Weekly blood pressure task No Socrates StewartGAIL spicer Patient has chronic kidney disease Care Plan Patient has chronic kidney disease No Alia Stewart MA Patient has chronic kidney disease Care Plan Patient has chronic kidney disease No Alia Stewart MA documented as of this encounter Procedures Procedure Name Priority Date/Time Associated Diagnosis Comments ALBUMIN, RANDOM URINE W/CREATININE Routine 07/14/2025 10:11 AM EST Type 2 diabetes mellitus with hyperglycemia, without long-term current use of insulin (HCC) CBC WITH AUTO DIFFERENTIAL Routine 07/14/2025 10:11 AM EST Type 2 diabetes mellitus with hyperglycemia, without long-term current use of insulin (HCC) LIPID PANEL, STANDARD Routine 07/14/2025 10:11 AM EST Type 2 diabetes mellitus with hyperglycemia, without long-term current use of insulin ([facility]) COMPREHENSIVE METABOLIC PANEL Routine 07/14/2025 10:11 AM EST Type 2 diabetes mellitus with hyperglycemia, without long-term current use of insulin ([facility]) POCT GLYCATED HEMOGLOBIN, TOTAL Routine 07/14/2025 9:39 AM EST Type 2 diabetes mellitus with hyperglycemia, without long-term current use of insulin ([facility]) POCT GLUCOSE Routine 07/14/2025 9:34 AM EST Type 2 diabetes mellitus with hyperglycemia, without long-term current use of insulin ([facility]) documented in this encounter Results * (ABNORMAL) Lipid Panel, Standard (07/14/2025 10:11 AM EST) Triglycerides 127 <150 mg/dL [facility] Comment:Desirable Triglyceri de: less than 150 mg/dLBorderline High Triglyceride 150-199 mg/dLHigh Triglyceride: 200-499 mg/dLVery High Triglyceride: greater than or equal to 5OO mg/dL Cholesterol 148 <200 mg/dL [facility] Comment:Desirable Cholestero l: less than 200 mg/dLBorderline High Cholesterol: 200-239 mg/dLHigh Cholesterol: greater than 239 mg/dL LDL Cholesterol Calculated 83 <100 mg/dL [facility] Comment:Desirable LDL: less than 100 mg/dLNear Optimal/Above Optimal LDL: 110- 129 mg/dLBorderline High LDL: 130-159 mg/dLHigh LDL: 160-189 mg/dLVery High LDL: greater than or equal to 190 mg/dL HDL Cholesterol 40(L) >40 mg/dL [facility] Comment:Desirable HDL: great er than 40 mg/dL Note: This HDL assay may give artificially low results in patients with liver disease. Blood Venous blood specimen / Unknown 07/14/2025 10:11 AM EST 07/14/2025 11:23 AM EST us Jaspreet Sandoval MD LAB BLOOD ORDERABLES Final Resul t Performing Organization Address [facility] de Phone Number [facility] [address] [place] [phone] [phone] * (ABNORMAL) Albumin, Random Urine W/Creatinine (07/14/2025 10:11 AM EST) Creatinine, Urine 162.29 mg/dL [facility] Microalbumin Urine 146.0 mg/L [facility] Microalbum Creatinine Ratio Ur 89.9(H) <30 ug/mg cr [facility] Comment:Albumin/Creatinine R atio Reference Ranges: Normal: < 30 ug/mg creatinine Microalbuminuria: 30 - 300 ug/mg creatinineClinical Albuminuria: > 300 ug/mg creatinine Urine (Urine, Random) 07/14/2025 10:11 AM EST 07/14/2025 11:25 AM EST us Jaspreet Sandoval MD LAB URINE ORDERABLES Final Resul t Performing Organization Address [facility] de Phone Number [facility] [address] [place] [phone] * (ABNORMAL) Comprehensive Metabolic Panel (07/14/2025 10:11 AM EST) Sodium 139 135 - 145 mmol/L [facility] Potassium 3.8 3.3 - 5.1 mmol/L [facility] Chloride 98 96 - 108 mmol/L [facility] Carbon Dioxide 35(H) 22 - 29 mmol/L [facility] Anion Gap 10(L) 12 - 20 [facility] Urea Nitrogen (BUN) 19(H) 9 - 16 mg/dL [facility] Creatinine, Serum 0.95 0.5 - 1.4 mg/dL [facility] Estimated Glomerular Filt Rate >60 [facility] Comment:Chronic Kidney Disea se: Estimated GFR < 60 mL/min/1.76y4Lklghl Kidney Disease: Estimated GFR < 15 mL/min/1.73m2 Glucose 112 60 - 115 mg/dL [facility] Calcium 9.6 8.4 - 10.2 mg/dL [facility] Bilirubin, Total 0.7 0.0 - 1.0 mg/dL [facility] Aspartate Amino Transferase 33 5 - 37 U/L [facility] Alanine Aminotransferase 25 0 - 40 U/L [facility] Total Protein 7.9 6.5 - 8.0 g/dL [facility] Albumin Level 4.5 3.5 - 5.0 g/dL [facility] Alkaline Phosphatase 63 39 - 117 U/L [facility] Blood Venous blood specimen / Unknown 07/14/2025 10:11 AM EST 07/14/2025 11:23 AM EST us Jaspreet Name LAB BLOOD ORDERABLES Final Resul t [facility] [address] [place] [phone] * (ABNORMAL) CBC auto differential (07/14/2025 10:11 AM EST) White Blood Count 7.0 4.8 - 10.8 X10*3/uL [facility] Red Blood Count 4.47(L) 4.60 - 5.80 X10*6/uL [facility] Hemoglobin 13.6(L) 14.0 - 18.0 g/dl [facility] Hematocrit 42.0 42.0 - 52.0 % [facility] Mean Corpuscular Volume 94.0 80.0 - 98.0 fL [facility] Mean Corpuscular Hemoglobin 30.4 27.0 - 33.0 pg [facility] Mean Corpuscular HGB Conc 32.4 31.0 - 36.0 g/dl [facility] Red Cell Distribution Width 12.3 11.0 - 16.0 % [facility] Platelet Count 328 160 - 400 X10*3/uL [facility] Mean Platelet Volume 10.5 9.4 - 12.4 fL [facility] Neutrophils Percent Auto 63.6 45 - 73 % [facility] Imm Gran Pct Auto 0.4 0.0 - 0.4 % [facility] Lymphocytes Percent Auto 21.7 20 - 40 % [facility] Monocytes Percent Auto 10.1 2 - 11 % [facility] Eosinophils Percent Auto 3.3 0 - 4 % [facility] Basophils Percent Auto 0.9 0 - 2 % [facility] NRBC Pct Auto 0.0 0.0 - 0.2 /100WBC [facility] Neutrophils Absolute Auto 4.4 2.0 - 8.3 x10*3/uL [facility] Imm Gran Abs Auto 0.03 0.00 - 0.03 X10*3/uL [facility] Lymphocytes Absolute Auto 1.5 1.2 - 4.9 X10*3/uL [facility] Monocytes Absolute Auto 0.7 0.1 - 1.2 X10*3/uL [facility] Eosinophils Absolute Auto 0.2 0.0 - 0.4 X10*3/uL [facility] Basophils Absolute Auto 0.1 0.0 - 0.2 X10*3/uL [facility] NRBC Abs Auto 0.000 0.0 - 0.012 X10*3/uL [facility] Blood Venous blood specimen / Unknown 07/14/2025 10:11 AM EST 07/14/2025 11:23 AM EST us Jaspreet Sandoval MD LAB BLOOD ORDERABLES Final Resul t [facility] [address] [place] [phone] * (ABNORMAL) POCT Hgb A1c (07/14/2025 9:39 AM EST) Hemoglobin A1C 5.9(A) 4.0 - 5.7 % QC Media Lot # [id number] Lot# Expiration Date 6172 Blood 07/14/2025 9:39 AM EST us Jaspreet Sandoval MD POINT OF CARE TEST ENTER/EDIT OR DERABLES Final Result * POCT Glucose (07/14/2025 9:34 AM EST) Glucose Blood, POC 120 60 - 200 mg/dL [employer] Lot # [id number] Lot# Expiration Date 7726 Blood Capillary blood specimen / Unknown 07/14/2025 9:34 AM EST us Jaspreet Sandoval MD POINT OF CARE TEST ENTER/EDIT OR DERABLES Final Result documented in this encounter Visit Diagnoses Diagnosis Type 2 diabetes mellitus with hyperglycemia, without long-term current use of insulin (HCC)- Primary Complex renal cyst Other specified congenital cystic kidney disease Viral warts, unspecified type Encounter for immunization documented in this encounter Additional Health Concerns Active Problems Noted Date Diagnosed Date Help patients manage their type 2 diabetes 07/03 Weekly blood pressure task 07/03/2025 Help patients manage their type 2 diabetes 07/03 Patient has chronic kidney disease 07/03/2025 Weekly blood pressure task 07/03/2025 Patient has chronic kidney disease 07/03/2025 Weekly blood pressure task 07/13/2025 Weekly blood pressure task 07/13/2025 Patient has chronic kidney disease 07/13/2025 Patient has chronic kidney disease 07/13/2025 Weekly blood pressure task 07/13/2025 Weekly blood pressure task 07/13/2025 Patient has chronic kidney disease 07/13/2025 Patient has chronic kidney disease 07/13/2025 Assessment Noted Time PHQ-9 Depression Total Score: 13 025 1:52 PM EDT documented as of this encounter Care Teams Woodworking Machine Feeder Relationship Specialty Start Date End Date Name, MD Jaspreet [address] [place] [address] PCP - General Family Medicine 08/25/15 documented as of this encounter
[2025-07-14 11:26] LABS: MANUAL DIFF FLAG NO
[2025-07-14 11:33] LABS: Hematocrit 42.0 % (42.0-52.0); Hemoglobin 13.6 g/dl (14.0-18.0); Imm Gran Abs Auto 0.03 X10*3/uL (0.00-0.03); Imm Gran Pct Auto 0.4 % (0.0-0.4); Lymphocytes Absolute Auto 1.5 X10*3/uL (1.2-4.9); Mean Corpuscular HGB Conc 32.4 g/dl (31.0-36.0); Mean Corpuscular Hemoglobin 30.4 pg (27.0-33.0); Mean Corpuscular Volume 94.0 fL (80.0-98.0); NRBC Abs Auto 0.000 X10*3/uL (0.0-0.012); NRBC Pct Auto 0.0 /100WBC (0.0-0.2); Platelet Count 328 X10*3/uL (160-400); Red Blood Count 4.47 X10*6/uL (4.60-5.80); White Blood Count 7.0 X10*3/uL (4.8-10.8)
[2025-07-14 12:04] LABS: Alanine Aminotransferase 25 U/L (0-40); Albumin Level 4.5 g/dL (3.5-5.0); Alkaline Phosphatase 63 U/L (39-117); Anion Gap 10 (12-20); Aspartate Amino Transferase 33 U/L (5-37); Blood Urea Nitrogen 19 mg/dL (9-16); Calcium 9.6 mg/dL (8.4-10.2); Carbon Dioxide 35 mmol/L (22-29); Chloride 98 mmol/L (96-108); Cholesterol 148 mg/dL (<200); Estimated Glomerular Filt Rate > 60; HDL Cholesterol 40 mg/dL (>40); Potassium 3.8 mmol/L (3.3-5.1); Sodium 139 mmol/L (135-145); Total Protein 7.9 g/dL (6.5-8.0); Triglycerides 127 mg/dL (<150)
[2025-07-14 12:09] LABS: Microalbum/Creatinine Ratio Ur 89.9 ug/mg cr (<30)
--- OUTSIDE RECORDS SUMMARY | 2025-07-14 12:31 | XMS_ITS | Encounter Summary ---
Author Organization [facility] Address [address] [place] [address] [address] [place] [address] Care Team Providers Care Retirement Officer Name Role Phone Name, Jaspreet SELLERS Primary Care Provider [phone] Reason for Visit * Reason Comments Med Refill Encounter Details Date Type Department Care Team (Late st Contact Info) Description 02/08/2023 Refill [facility] MEDICINE [address] [place] [address] [phone] Cathy Grayson FNP [address] [place], [place] [phone] Benign essential hypertension Social History Tobacco Use [...] Description 10/13/2025 9:15 AM EDT Office Visit [facility] MEDICINE [address] [place] [address] [phone] Name, MD Jaspreet [address] [place] [address] [phone] documented as of this encounter Visit Diagnoses Diagnosis Benign essential hypertension Essential hypertension, benign documented in this encounter Additional Health Concerns Assessment Noted Time PHQ-9 Depression Total Score: 0 08/04/19 23 9:31 AM EST documented as of this encounter Care Teams Retirement Officer Relationship Specialty Start Date End Date Name, MD Jaspreet [address] [place] [address] PCP - General Family Medicine 08/25/15 documented as of this encounter
--- OUTSIDE RECORDS SUMMARY | 2025-07-14 12:31 | XMS_ITS | Encounter Summary ---
Author Organization [employer] [facility] Address [address] [place] [address] 7 [place] [address] Care Team Providers Care Boat Repairer Name Role Phone Name, Jaspreet SELLERS Primary Care Provider [phone] Encounter Details Date Type Department Care Team (Late Contact Info) Description 12/21/2022 Abstract [facility] MEDICINE [address] [place] [address] [phone] NameJaspreet MD [address] [place] [address] [phone] Social History Tobacco Use Types Packs/Day Years [...] Department Care Team (Late Contact Info) Description 10/13/2025 9:15 AM EDT Office Visit [facility] MEDICINE [address] [place] [address] [phone] Jaspreet Sandoval MD [address] [place] [address] [phone] documented as of this encounter Procedures Procedure [...] as of this encounter Care Teams Boat Repairer Relationship Specialty Start Date End Date Name, MD Jasperet [address] [place] [address] PCP - General Family Medicine 08/25/15 documented as of this encounter
--- OUTSIDE RECORDS SUMMARY | 2025-07-14 12:31 | XMS_ITS | Encounter Summary ---
Author Organization [employer] [facility] Address [address] [place] [address] [place] [address] Care Team Providers Care Elevator Worker Name Role Phone Name, Jaspreet SELLERS Primary Care Provider [phone] Reason for Visit * Reason Comments Med Refill Encounter Details Date Type Department Care Team (Late st Contact Info) Description 09/02/2022 Refill [facility] MEDICINE [address] [place] [address] [phone] Name, MD Jaspreet [address] [place] [address] [phone] Right knee pain, unspecified chronicity Social History [...] Description 10/13/2025 9:15 AM EDT Office Visit [facility] MEDICINE [address] [place] [address] [phone] Name, MD Jaspreet [address] [place] [address] [phone] documented as of this encounter Visit Diagnoses Diagnosis Right knee pain, unspecified chronicity documented in this encounter Additional Health Concerns Assessment Noted Time PHQ-9 Depression Total Score: 0 08/04/19 23 9:31 AM EST documented as of this encounter Care Teams Elevator Worker Relationship Specialty Start Date End Date Name, MD Jaspreet [address] [place] [address] PCP - General Family Medicine 08/25/15 documented as of this encounter
--- OUTSIDE RECORDS SUMMARY | 2025-07-14 12:31 | XMS_ITS | Clinical Summary ---
Author Organization [employer] Address [address] [place] [address] [address] [place] [address] Care Team Providers Care Director Inbound Sales Name Role Phone Name, Jaspreet SELLERS Primary Care Provider [phone] Allergies Active Allergy Reactions Criticality Noted Date Comments Lisinopril Swelling 03/11/2021 Penicillins Hives,Rash Low 07/16/2009 Medications hydrocortisone 1 % cream Apply topically to affected area(s) two times daily 021 Active lidocaine-priloc say (Emla) 2.5-2.5 % cream apply to affected area four times daily as needed for pain 022 Active sildenafil (Viagra) 50 MG tabletIndication s:Type 2 diabetes mellitus without complication, unspecified whether tank terminal gauger insulin use Take 1 tablet (50 mg) by mouth if needed for erectile dysfunction for up to 10 days. 10 tablet 3 024 Active Accu-Chek Guide test stripIndications :Type 2 diabetes mellitus without complications (HCC) USE TO TEST FINGER STICK BLOOD SUGAR 4 (FOUR) TIMES DAILY 200 strip 11 024 Active amLODIPine (Norvasc) 5 MG tabletIndication s:Benign essential hypertension TAKE 1 TABLET BY MOUTH EVERY MORNING 30 tablet 11 06/15/20 25 3:24 PM EST 024 Active gabapentin (Neurontin) 300 MG capsule Take 1 capsule (300 mg) by mouth 3 times daily. 90 capsule 11 024 2024 Active Accu-Chek Softclix Lancets lancetsIndicatio ns:Type 2 diabetes mellitus without complications (HCC) USE TO TEST FINGER STICK BLOOD SUGAR 4 (FOUR) TIMES DAILY 100 each 5 025 Active atorvastatin (Lipitor) 20 MG tabletIndication s:Hypercholester olemia TAKE 1 TABLET BY MOUTH ONCE DAILY 30 tablet 11 Active insulin glargine (Lantus SoloStar) 100 UNIT/ML penIndications:C ontrolled type 2 diabetes mellitus without complication, with long-term current use of insulin (HCC) INJECT 30 UNITS SUBCUTANEOUSLY ONCE DAILY 9 mL 5 06/15/20 25 3:24 PM EST 025 Active tamsulosin (Flomax) 0.4 MG 24 hr capsule TAKE 1 CAPSULE BY MOUTH ONCE DAILY IN THE MORNING 30 capsule 11 06/15/20 25 3:24 PM EST 025 Active Alcohol Swabs (Alcohol Pads) 70 % pads USE DIRECTED 4 (FOUR) TIMES DAILY 100 each 5 025 Active Diclofenac Sodium 1 % gelIndications:C arpal tunnel syndrome, unspecified laterality APPLY 2 gramos TOPICALLY two (2) times a day 100 g 1 025 Active DULoxetine (Cymbalta) [address] capsuleIndicatio ns:Chronic low back pain, unspecified back pain laterality, unspecified whether sciatica present TAKE 1 CAPSULE BY MOUTH ONCE DAILY 30 capsule 5 06/15/20 25 3:24 PM EST 025 Active Acetaminophen Extra Strength 500 MG tabletIndication s:Acute non intractable tension-type headache TAKE 2 TABLETS BY MOUTH EVERY 8 HOURS NEEDED FOR HEADACHE 30 tablet 5 Active celecoxib (CeleBREX) 200 MG capsule Take 1 capsule (200 mg) by mouth 2 times daily. 60 capsule 5 025 2025 Active hydrALAZINE (Apresoline) 25 MG tabletIndication s:Benign essential hypertension TAKE 1 TABLET BY MOUTH two (2) times a day WITH A MEAL 60 tablet 5 06/15/20 25 3:24 PM EST 025 Active insulin pen needle (BD Pen Needle Sindy 2nd Gen) 32G x 4 mm misc USE TO INJECT insulin ONCE DAILY 100 each 3 025 Active chlorthalidone (Hygroton) 25 MG tablet TAKE 1 TABLET BY MOUTH EVERY EVENING 30 tablet 6 06/15/20 25 3:24 PM EST 025 Active metFORMIN (Glucophage) 500 MG tablet TAKE 1 TABLET BY MOUTH two (2) times a day IN THE MORNING AND IN THE EVENING 60 tablet 5 025 Active metFORMIN (Glucophage) 500 MG tablet TAKE 1 TABLET BY MOUTH two (2) times a day (IN THE MORNING AND IN THE EVENING) 60 tablet 5 025 2024 Discontinued Active Problems Problem Noted Date Diagnosed Date Controlled type 2 diabetes carrie griffin without complication, with long-term current use of insulin 12/03/2024 Primary hypertension 09/21/2023 Assessment & Plan [...] headache 08/31 Venous insufficiency of leg 08/01/2022 Hypercholesterolemia 07/14/2022 Class 2 obesity 07/14/2022 Osteoarthritis of both knees 07/14/2022 Primary malignant neoplasm of perianal skin 06/29 Overview (07/14/2025): Images from the original note were not included. I saw him August 2020 for this complaints, after examining him I was not sure of what was going on, I treated him with antibiotic thinking he had infection or ruptured abscess and send him to surgery at [facility] that did a biopsy that showed a basal cell carcinoma of the perianal area. He still follows at [facility] surgery. He has repeat biopsy 2022: Hyperglycemia due to type 2 diabetes mellitus Carpal tunnel syndrome 05/10/2018 Insomnia 04/25/2017 Obstructive sleep apnea syndrome 01/15/2017 Complex renal cyst 09/20/2016 Non-cardiac chest pain 08/23/2016 Aneurysm of ascending aorta 01/18/2016 Degeneration of lumbosacral intervertebral disc 10/01/2015 Urethral stricture 10/01/2015 Chronic low back pain 10/01/2015 Resolved Problems Problem Noted Date Diagnosed Date Resolved Date Chronic abdominal pain 12/03/202407/14 Basal cell carcinoma of skin 07/14/2022 07/14/2025 Knee pain 07/05/2018 07/15/2024 Neck pain 10/26/2017 07/15/2024 Increased frequency of urination 05/23/2017 07/14/2025 Lung mass 08/23/2016 07/15/2024 Shoulder pain 10/01/2015 07/15/2024 Benign essential hypertension 10/01/2015 07/15/2024 Encounters Date Type Department Care Team Description 07/14/2025 9:30 AM EST Office Visit [facility] [address] [facility] [place] [address] Jaspreet Sandoval MD Type 2 diabetes mellitus with hyperglycemia, without long-term current use of insulin (HCC) (Primary Dx); Complex renal cyst; Viral warts, unspecified type; Encounter for immunization 07/14/2025 Travel 07/13/2025 Telephone [facility] [address] [facility] [place] [address] Alia Stewart MA chart prep 07/09/2025 Refill [facility] [address] [place] [address] Annie Tobias NP 07/03/2025 Patient Outreach [facility] [address] [place] [address] Jaspreet Sandoval MD Pre-visit Planning (SDOH screening was completed on 12/03/2024) 2025 Refill [facility] Alejandra [facility] [place] [address] Jaspreet Sandoval MD 05/11/2025 Refill [facility] [address] [place] [phone] Jaspreet Sandoval MD 05/07/2025 Results Follow-Up [facility] [address] [place] [address] Jaspreet Sandoval MD MR Abdomen w/ and w/o Contrast 04/23/2025 Telephone [facility] [address] [place] [phone] Alia Stewart MA nov recalls from Last 3 Months Immunizations Immunization Administration Dates Next Due Influenza injectable quadriv alent IIV4 with preservative 05/10/2018,04/25/2017,05/24/2016 Influenza injectable quadriv alent preservative free 07/13/2023,05/18/2022,04/29/2021,2018 Influenza, High Dose Seasona l, Preservative Free 07/14/2025 Influenza, IIV3, injectable 04/16/2015,1 08/15/2013,04/18/2013,2011,06/13/2011,07/16/2009 Influenza, seasonal, injecta ble, preservative free 04/09/2024 Novel [id number], preservative-free 07/16/2009 Pfizer Covid-19 Vaccine 12+ 07/13/2023 Pneumococcal Conjugate PCV 20 03/30/2023 Tdap 10/31/2016 Zoster, Recombinant 02/15/2022,11/02/2021 Family History Medical History Relation Name Comments Alzheimer's disease Brother Alzheimer's disease Other Alzheimer's disease Sister Pancreatic cancer Sister Relation Name Status Comments Brother Other Sister Social History Tobacco Use Types Packs/Day Years [...] Mass Index 36.26 07/14/2025 9:32 AM EST Plan of Treatment Upcoming Encounters Date Type Department Care Team (Late st Contact Info) Description 10/13/2025 9:15 AM EDT Office Visit [facility] [address] [place] [phone] Name, MD Jaspreet [address] [place] [address] Health Maintenance Due Date Last Done Comments CT Colonography 1960 FIT DNA/Cologuard 1960 FIT 1960 FOBT 1960 Sigmoidoscopy 1960 Derm Melanoma Skin Check 1960 Eye Exam 1970 Hepatitis C Screening 1978 RSV Patients and Patients Aged 60 years or older (1 - Risk 50-74 years 1-dose series) 2010 Diabetes: Foot Exam 07/13/2024 07/13/2023, 07/13/2023, 07/13/2023, Additional history exists COVID-19 Vaccine ( season) 2025 07/13/2023, 07/21/2021, 12/22/2020, Additional history exists Depression Monitoring 09/10/2025 03/10/2025, 025 Alcohol/Substance Use Screening 12/03/2025 12/03/2024 SDOH Screening 12/03/2025 12/03/2024 Diabetes: Hemoglobin A1C 01/12/2026 025, 12/03/2024, 04/09/2024, Additional history exists Tobacco Screening 03/10/2026 03/10/2025 Colonoscopy 03/31/2026 04/26/2021, 03/31/2016 Colorectal Cancer Screening 03/31/2026 Diabetes: Urine Protein Screening 07/14/2026 07/14/2025, 07/15/2024, 03/30/2023, Additional history exists Lipid Panel 07/14/2026 07/14/2025, 06/29, 03/30/2023, Additional history exists DTaP/Tdap/Td Vaccines (2 - Td or Tdap) 10/31/2026 10/31/2016 Zoster Vaccines Completed 02/15/2022, 11/02/2021 Pneumococcal Vaccine: 50+ Years Completed 03/30/2023 Influenza Vaccine Completed 07/14/2025, , 07/13/2023, Additional history exists HIB Vaccines Aged Out [...] on patient's age to complete this topic Goals Goal Patient Goal Type Associated Problems [...] chronic kidney disease No Alia Stewart MA Procedures Procedure Name Priority Date/Time Associated Diagnosis Comments LIPID PANEL, STANDARD Routine 07/14/2025 10:11 AM EST Type 2 diabetes mellitus with hyperglycemia, without long-term current use of insulin (HCC) ALBUMIN, RANDOM URINE W/CREATININE Routine 07/14/2025 10:11 AM EST Type 2 diabetes mellitus with hyperglycemia, without long-term current use of insulin (HCC) COMPREHENSIVE METABOLIC PANEL Routine 07/14/2025 10:11 AM EST Type 2 diabetes mellitus with hyperglycemia, without long-term current use of insulin (HCC) CBC WITH AUTO DIFFERENTIAL Routine 07/14/2025 10:11 AM EST Type 2 diabetes mellitus with hyperglycemia, without long-term current use of insulin (HCC) POCT GLYCATED HEMOGLOBIN, TOTAL Routine 07/14/2025 9:39 AM EST Type 2 diabetes mellitus with hyperglycemia, without long-term current use of insulin (HCC) POCT GLUCOSE Routine 07/14/2025 9:34 AM EST Type 2 diabetes mellitus with hyperglycemia, without long-term current use of insulin (HCC) MR ABDOMEN W AND WO CONTRAST Routine 05/04/2025 9:33 AM EDT Renal cyst HM COLONOSCOPY Routine 04/26/2021 11:41 AM EDT from Last 3 Months or Most Recently Relevant to Health Maintenance Results * (ABNORMAL) Albumin, Random Urine W/Creatinine (07/14/2025 10:11 AM EST) Creatinine, Urine 162.29 mg/dL [facility] Microalbumin Urine 146.0 mg/L H [facility] Microalbum Creatinine Ratio Ur 89.9(H) <30 ug/mg cr [facility] Comment:Albumin/Creatinine R atio Reference Ranges: Normal: < 30 ug/mg creatinine Microalbuminuria: 30 - 300 ug/mg creatinineClinical Albuminuria: > 300 ug/mg creatinine Urine (Urine, Random) 07/14/2025 10:11 AM EST 07/14/2025 11:25 AM EST us Jaspreet Name LAB URINE ORDERABLES Final Resul t [facility] [address] [place] [phone] * (ABNORMAL) CBC auto differential (07/14/2025 10:11 AM EST) White Blood Count 7.0 4.8 - 10.8 X10*3/uL [facility] Red Blood Count 4.47(L) 4.60 - 5.80 X10*6/uL [facility] Hemoglobin 13.6(L) 14.0 - 18.0 g/dl [facility] Hematocrit 42.0 42.0 - 52.0 % [facility] Mean Corpuscular Volume 94.0 80.0 - 98.0 fL [facility] Mean Corpuscular Hemoglobin 30.4 27.0 - 33.0 pg [facility] Mean Corpuscular HGB Conc 32.4 31.0 - 36.0 g/dl [facility] Red Cell Distribution Width 12.3 11.0 - 16.0 % [facility] Platelet Count 328 160 - 400 X10*3/uL [facility] Mean Platelet Volume 10.5 9.4 - 12.4 fL [facility] Neutrophils Percent Auto 63.6 45 - 73 % [facility] Imm Gran Pct Auto 0.4 0.0 - 0.4 % [facility] Lymphocytes Percent Auto 21.7 20 - 40 % [facility] Monocytes Percent Auto 10.1 2 - 11 % [facility] Eosinophils Percent Auto 3.3 0 - 4 % [facility] Basophils Percent Auto 0.9 0 - 2 % [facility] NRBC Pct Auto 0.0 0.0 - 0.2 /100WBC [facility] Neutrophils Absolute Auto 4.4 2.0 - 8.3 x10*3/uL [facility] Imm Gran Abs Auto 0.03 0.00 - 0.03 X10*3/uL [facility] Lymphocytes Absolute Auto 1.5 1.2 - 4.9 X10*3/uL [facility] Monocytes Absolute Auto 0.7 0.1 - 1.2 X10*3/uL [facility] Eosinophils Absolute Auto 0.2 0.0 - 0.4 X10*3/uL [facility] Basophils Absolute Auto 0.1 0.0 - 0.2 X10*3/uL [facility] NRBC Abs Auto 0.000 0.0 - 0.012 X10*3/uL [facility] Blood Venous blood specimen / Unknown 07/14/2025 10:11 AM EST 07/14/2025 11:23 AM EST us Jaspreet Sandoval MD LAB BLOOD ORDERABLES Final Resul t Performing Organization Address [facility] Co de Phone Number [facility] [address] [place] [phone] * (ABNORMAL) Lipid Panel, Standard (07/14/2025 10:11 AM EST) Triglycerides 127 <150 mg/dL [facility] Comment:Desirable Triglyceri de: less than 150 mg/dLBorderline High Triglyceride 150-199 mg/dLHigh Triglyceride: 200-499 mg/dLVery High Triglyceride: greater than or equal to 5OO mg/dL Cholesterol 148 <200 mg/dL [facility] Comment:Desirable Cholestero l: less than 200 mg/dLBorderline High Cholesterol: 200-239 mg/dLHigh Cholesterol: greater than 239 mg/dL LDL Cholesterol Calculated 83 <100 mg/dL [facility] Comment:Desirable LDL: less than 100 mg/dLNear Optimal/Above Optimal LDL: 110- 129 mg/dLBorderline High LDL: 130-159 mg/dLHigh LDL: 160-189 mg/dLVery High LDL: greater than or equal to 190 mg/dL HDL Cholesterol 40(L) >40 mg/dL [facility] Comment:Desirable HDL: great er than 40 mg/dL Note: This HDL assay may give artificially low results in patients with liver disease. Blood Venous blood specimen / Unknown 07/14/2025 10:11 AM EST 07/14/2025 11:23 AM EST us Jaspreet Sandoval MD LAB BLOOD ORDERABLES Final Resul t Performing Organization Address [facility] Co de Phone Number [facility] [address] [place] [phone] * (ABNORMAL) Comprehensive Metabolic Panel (07/14/2025 10:11 AM EST) Sodium 139 135 - 145 mmol/L [facility] Potassium 3.8 3.3 - 5.1 mmol/L [facility] Chloride 98 96 - 108 mmol/L [facility] Carbon Dioxide 35(H) 22 - 29 mmol/L [facility] Anion Gap 10(L) 12 - 20 [facility] Urea Nitrogen (BUN) 19(H) 9 - 16 mg/dL [facility] Creatinine, Serum 0.95 0.5 - 1.4 mg/dL [facility] Estimated Glomerular Filt Rate >60 [facility] Comment:Chronic Kidney Disea se: Estimated GFR < 60 mL/min/[id number] Kidney Disease: Estimated GFR < 15 mL/min/1.73m2 Glucose 112 60 - 115 mg/dL [facility] Calcium 9.6 8.4 - 10.2 mg/dL [facility] Bilirubin, Total 0.7 0.0 - 1.0 mg/dL [facility] Aspartate Amino Transferase 33 5 - 37 U/L [facility] Alanine Aminotransferase 25 0 - 40 U/L [facility] Total Protein 7.9 6.5 - 8.0 g/dL [facility] Albumin Level 4.5 3.5 - 5.0 g/dL [facility] Alkaline Phosphatase 63 39 - 117 U/L [facility] Blood Venous blood specimen / Unknown 07/14/2025 10:11 AM EST 07/14/2025 11:23 AM EST us Jaspreet Name LAB BLOOD ORDERABLES Final Resul t [facility] [address], [place] [phone] * (ABNORMAL) POCT Hgb A1c (07/14/2025 9:39 AM EST) Hemoglobin A1C 5.9(A) 4.0 - 5.7 % QC Media Lot # [id number] Lot# Expiration Date ,727 Blood 07/14/2025 9:39 AM EST us Jaspreet Sandoval MD POINT OF CARE TEST ENTER/EDIT OR DERABLES Final Result * POCT Glucose (07/14/2025 9:34 AM EST) Glucose Blood, POC 120 60 - 200 mg/dL QC Media Lot # [id number] Lot# Expiration Date Blood Capillary blood specimen / Unknown 07/14/2025 9:34 AM EST us Jaspreet Sandoval MD POINT OF CARE TEST ENTER/EDIT OR DERABLES Final Result * MR Abdomen w/ and w/o Contrast (05/04/2025 9:33 AM EDT) Anatomical Region Laterality Modality Abdomen Magnetic Resonan ce 05/04/2025 9:33 AM EDT Narrative 05/04/2025 1:11 PM EDT [place] [address] Magnetic Resonance Report Signed Patient: Sebastien Bai MR#: [id number] : 1960 Acct:[id number] Age/Sex: 64 / M ADM Date: 05/04/25 Loc: HO.MRI Attending Dr: Sapna Christian DO Ordering Physician: Sapna Christian DO Date of Service: 05/04/25 Procedure(s): MR abdomen wo/w con Accession Number(s): [id number] cc: Sapna Christian DO; Name,Jaspreet SELLERS Reason for Exam: Bosniak 2F vs Bosniak [address] for further eval EXAMINATION: MR ABDOMEN WITHOUT AND WITH CONTRAST CLINICAL INFORMATION: COMPARISON: Previous CT of the abdomen and pelvis December 2024, renal ultrasound January 2025 and CTA of the chest from 2016. TECHNIQUE: MR abdomen was performed without and with use of 10 mL intravenous Gadavist gadolinium contrast. Postcontrast images are performed in multiphase dynamic sequences. Imaging was performed in 3 planes. FINDINGS: LUNG BASES: The visualized lung bases are unremarkable. LIVER, GALLBLADDER, AND BILIARY TREE: The liver is normal in size, smooth in contour, and normal in signal. No focal hepatic lesion or biliary ductal dilatation is present. The gallbladder is unremarkable with no evidence of gallbladder wall thickening, or obvious pericholecystic inflammatory changes. PANCREAS: Unremarkable. SPLEEN: Normal. ADRENAL GLANDS: Normal. KIDNEYS AND URETERS: There is a 5 cm complex cyst in the posterior lower pole of the right kidney. This has a thickened laminated dark T2 wall that demonstrates enhancement. Wall thickness measures up to 8 mm inferiorly. There are several thin nonenhancing septations. No solid mural nodule. There is partially visualized on CTA of the chest from 2017 and measured 4.5 cm. 7 mm high signal T1 and high signal T2 nonenhancing lesion in the posterior upper pole of the left kidney probably representing a proteinaceous or hemorrhagic cyst. Additional small subcentimeter left renal simple cysts. The kidneys are normal in size, shape, and enhance symmetrically. No hydronephrosis. No perinephric stranding. GASTROINTESTINAL TRACT: No bowel obstruction. No ascites or fluid collection. Normal appendix. ABDOMINAL WALL: Small umbilical hernia containing fat. LYMPH NODES: Fat stranding in this small bowel mesentery and small small bowel mesenteric lymph nodes similar to recent CT. No enlarged lymph nodes. VASCULAR: Unremarkable. OSSEOUS STRUCTURES: Degenerative changes of the spine. MR/MR abdomen wo/w con IMPRESSION: 5 cm complex cyst in the lower pole of the right kidney with thickened laminated enhancing wall measuring up to 8 mm and several thin nonenhancing septations. No mural nodule. 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 This is partially seen on CTA of the chest 2017 and measured 4.5 cm. Urology consultation recommended. Subcentimeter left upper pole hemorrhagic or proteinaceous cyst and simple cysts. Small, small bowel mesentery lymphadenopathy and fat stranding/ bhupendra mesentery similar to prior CT. Residual would include mesenteric adenitis, mesenteritis, lymphoproliferative process, changes related to primary small bowel or a pancreas process. Follow-up imaging recommended. This can be reevaluated at time of right renal complex cyst evaluation. Electronically signed by: Suze Sue MD 05/04/2025 01:08 PM EDT Dictated By: Suze Sue MD Signed By: <Electronically signed by Suze Sue MD in OV> 05/04/25 1308 DD/ 0933 TD/TT: 05/04/25 1010 Glass Cutting Machine Operator: AMBER Procedure Note Donotuseinterpreter, Image - 05/04/[address] [address] Magnetic Resonance Report Signed Patient: Sebastien BaiMR#: [id number] : 1960Acct:[id number] Age/Sex: 64 / MADM Date: 05/04/25 Loc: HO.MRI Attending Dr: Sapna Christian DO Ordering Physician: Sapna Christian DO Date of Service: 05/04/25 Procedure(s): MR abdomen wo/w con Accession Number(s): [id number] cc: Sapna Christian DO; Name,Jaspreet SELLERS Reason for Exam: Bosniak 2F vs Bosniak [address] for furthereval EXAMINATION: MR ABDOMEN WITHOUT AND WITH CONTRAST CLINICAL INFORMATION: COMPARISON: Previous CT of the abdomen and pelvis December 2024, renal ultrasound January 2025 and CTA of the chest from 2016. TECHNIQUE: MR abdomen was performed without and with use of 10 mL intravenous Gadavist gadolinium contrast. Postcontrast images are performed in multiphase dynamic sequences. Imaging was performed in 3 planes. FINDINGS: LUNG BASES: The visualized lung bases are unremarkable. LIVER, GALLBLADDER, AND BILIARY TREE: The liver is normal in size, smooth in contour, and normal in signal. No focal hepatic lesion or biliary ductal dilatation is present. The gallbladder is unremarkable with no evidence of gallbladder wall thickening, or obvious pericholecystic inflammatory changes. PANCREAS: Unremarkable. SPLEEN: Normal. ADRENAL GLANDS: Normal. KIDNEYS AND URETERS: There is a 5 cm complex cyst in the posterior lower pole of the right kidney. This has a thickened laminated dark T2 wall that demonstrates enhancement. Wall thickness measures up to 8 mm inferiorly. There are several thin nonenhancing septations. No solid mural nodule. There is partially visualized on CTA of the chest from 2016 and measured 4.5 cm. 7 mm high signal T1 and high signal T2 nonenhancing lesion in the posterior upper pole of the left kidney probably representing a proteinaceous or hemorrhagic cyst. Additional small subcentimeter left renal simple cysts. The kidneys are normal in size, shape, and enhance symmetrically. No hydronephrosis. No perinephric stranding. GASTROINTESTINAL TRACT: No bowel obstruction. No ascites or fluid collection. Normal appendix. ABDOMINAL WALL: Small umbilical hernia containing fat. LYMPH NODES: Fat stranding in this small bowel mesentery and small small bowel mesenteric lymph nodes similar to recent CT. No enlarged lymph nodes. VASCULAR: Unremarkable. OSSEOUS STRUCTURES: Degenerative changes of the spine. MR/MR abdomen wo/w con IMPRESSION: 5 cm complex cyst in the lower pole of the right kidney with thickened laminated enhancing wall measuring up to 8 mm and several thin nonenhancing septations. No mural nodule. 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 This is partially seen on CTA of the chest 2016 and measured 4.5 cm. Urology consultation recommended. Subcentimeter left upper pole hemorrhagic or proteinaceous cyst and simple cysts. Small, small bowel mesentery lymphadenopathy and fat stranding/ bhupendra mesentery similar to prior CT. Residual would include mesenteric adenitis, mesenteritis, lymphoproliferative process, changes related to primary small bowel or a pancreas process. Follow-up imaging recommended. This can be reevaluated at time of right renal complex cyst evaluation. Electronically signed by: Suze Sue MD 05/04/2025 01:08 PM EDT RP Dictated By: Suze Sue MD Signed By: <Electronically signed by Suze Sue MD in OV> 05/04/25 1308 DD/ 0933 TD/TT: 05/04/25 1010 Glass Cutting Machine Operator: AMBER Sapna Christian DO IMG MRI PROCEDURES Final Res ult * Hm Colonoscopy (04/26/2021 11:41 AM EDT) Colonoscopy Normal Normal Impressions Lisa Ricardo - 04/26/2021 11:41 AM EDT Recommended 1 year follow up Historical Provider HEALTH MAINTENANCE Final Result from Last 3 Months or Most Recently Relevant to Health Maintenance Additional Health Concerns Active Problems Noted Date [...] 07/13/2025 Patient has chronic kidney disease 07/13/2025 Insurance MEDICARE Care Teams Director Inbound Sales Relationship Specialty Start Date End Date Name, MD Jaspreet [address] [place] [address] PCP - General Family Medicine 08/25/15
--- OUTSIDE RECORDS SUMMARY | 2025-07-14 12:31 | XMS_ITS | Encounter Summary ---
Author Organization [employer] Address [address] [facility] 7t [place] [address] Care Team Providers Care Sales Marketing Name Role Phone Name, Jaspreet SELLERS Primary Care Provider [phone] Reason for Visit * Reason Onset Date Comments chart prep 07/13/2025 Encounter Details Date Type Department Care Team ([facility] st Contact Info) Description 07/13/2025 Telephone [facility] MEDICINE [address] [place] [address] Alia Stewart MA chart prep Social History Tobacco Use Types Packs/Day Years [...] encounter Miscellaneous Notes * Telephone Encounter - Alia Stewart MA - 07/13/2025 9:40 AM EST Chart Prep Labs: not done Images: done Referrals: complete 06/08/25 9:15 AM [facility] Vaccines due: Covid, Flu, and RSV Screenings: eye exam and foot exam Overdue care gaps: A1c and Glucose documented in this encounter Plan of Treatment Upcoming Encounters Date Type Department Care Team (Late st Contact Info) Description 10/13/2025 9:15 AM EDT Office Visit [facility] MEDICINE [address] [place] [phone] Name, MD Jaspreet [address] [place] [address] documented as of this encounter Goals Goal [...] Stewart MA documented as of this encounter Visit Diagnoses Not on filedocumented in this encounter Additional Health Concerns Active [...] documented as of this encounter Care Teams Sales Marketing Relationship Specialty Start Date End Date Name, MD Jaspreet [address] [place] [address] PCP - General Family Medicine 08/25/15 documented as of this encounter
--- OUTSIDE RECORDS SUMMARY | 2025-07-14 12:31 | XMS_ITS | Encounter Summary ---
Author Organization [employer] Address [address] [facility] 7 [place] [address] Care Team Providers Care Coroner Name Role Phone Name, Jaspreet SELLERS Primary Care Provider [phone] Reason for Visit * Reason Comments Med Refill Encounter Details Date Type Department Care Team ([facility] st Contact Info) Description 07/09/2025 Refill [facility] MEDICINE 230 [place], [place] [phone] Annie Tobias NP 230 [place] [address] Social History Tobacco Use Types Packs/Day Years [...] Description 10/13/2025 9:15 AM EDT Office Visit [facility] MEDICINE [address] [place] [address] Name, MD Jaspreet [address] [place] [address] documented as of this encounter Goals Goal [...] has chronic kidney disease No Melany Menendez documented as of this encounter Visit Diagnoses Not on filedocumented in this encounter Additional Health Concerns Active Problems Noted Date Diagnosed Date Help patients manage their type 2 diabetes 07/03 Weekly blood pressure task 07/03/2025 Help patients manage their type 2 diabetes 07/03 Patient has chronic kidney disease 07/03/2025 Weekly blood pressure task 07/03/2025 Patient has chronic kidney disease 07/03/2025 Assessment Noted Time PHQ-9 Depression Total Score: 13 025 1:52 PM EDT documented as of this encounter Care Teams Coroner Relationship Specialty Start Date End Date Name, MD Jaspreet [address] [place] [address] PCP - General Family Medicine 08/25/15 documented as of this encounter
--- OUTSIDE RECORDS SUMMARY | 2025-07-14 12:31 | XMS_ITS | Encounter Summary ---
Author Organization [employer] Address 75 [facility] 7t [place] [address] Care Team Providers Care Signals Intelligence Superintendent Name Role Phone Name, Jaspreet SELLERS Primary Care Provider [phone] Encounter Details Date Type Department Care Team (Latest Contact Info) Description 07/14/2025 Travel Social History Tobacco Use Types Packs/Day [...] Description 10/13/2025 9:15 AM EDT Office Visit [facility] MEDICINE 230 [place] [address] Name, MD Jaspreet [address] [place] [address] documented as of this encounter Goals Goal [...] Plan Patient has chronic kidney disease No Tita Stewartzka, [place] documented as of this encounter Visit [...] documented as of this encounter Care Teams Signals Intelligence Superintendent Relationship Specialty Start Date End Date Name, MD Jaspreet [address] [place] [address] PCP - General Family Medicine 08/25/15 documented as of this encounter
--- OUTSIDE RECORDS SUMMARY | 2025-07-14 12:31 | XMS_ITS | Patient Health Record ---
Author Organization [facility] Address [address] [place] [address] Care Team Providers Care Press Tender Star Signal Name Role Phone Trevor Shah Unavailable [phone] Reason For Referral No Information Plan Of Treatment No Information
--- OUTSIDE RECORDS SUMMARY | 2025-07-14 12:31 | XMS_ITS | Encounter Summary ---
Author Organization [employer] Address 75 [facility] 7t [place] [address] Care Team Providers Care Health Professor Name Role Phone Name, Jaspreet SELLERS Primary Care Provider [phone] Encounter Details Date Type Department Care Team (Late st Contact Info) Description 09/18/2024 Telephone [facility] MEDICINE 230 [place], [place] [phone] Name, MD Jaspreet 230 [place] [address] Social History Tobacco Use Types Packs/Day Years [...] Description 10/13/2025 9:15 AM EDT Office Visit [facility] MEDICINE [address] [place] [address] Name, MD Jaspreet [address] [place] [address] documented as of this encounter Visit Diagnoses Not on filedocumented in this encounter Additional Health Concerns Assessment Noted Time PHQ-9 Depression Total Score: 0 10/10/19 24 3:18 PM EDT documented as of this encounter Care Teams Health Professor Relationship Specialty Start Date End Date Name, MD Jaspreet [address] [place] [address] PCP - General Family Medicine 08/25/15 documented as of this encounter
--- OUTSIDE RECORDS SUMMARY | 2025-07-14 12:31 | XMS_ITS | Encounter Summary ---
Author Organization [employer] Address 75 [facility] 7 [place] [address] Care Team Providers Care Commercial Manager Name Role Phone Name, Jaspreet SELLERS Primary Care Provider [phone] Reason for Visit * Reason Comments Med Refill Encounter Details Date Type Department Care Team ([facility] st Contact Info) Description 05/15/2023 Refill [facility] MEDICINE 230 [place], [place] [phone] [facility] 230 [place], [place] [phone] Benign essential hypertension Social History Tobacco Use [...] Description 10/13/2025 9:15 AM EDT Office Visit [facility] MEDICINE 230 [place] [address] Name, MD Jaspreet 230 [place] [address] documented as of this encounter Visit Diagnoses Diagnosis Benign essential hypertension Essential hypertension, benign documented in this encounter Additional Health Concerns Assessment Noted Time PHQ-9 Depression Total Score: 0 08/04/19 23 9:31 AM EST documented as of this encounter Care Teams Commercial Manager Relationship Specialty Start Date End Date NameJaspreet MD 230 [place] [address] PCP - General Family Medicine 08/25/15 documented as of this encounter
--- OUTSIDE RECORDS SUMMARY | 2025-07-14 12:31 | XMS_ITS | Encounter Summary ---
Author Organization [employer] Address [address] [facility] 7 [place] [address] Care Team Providers Care Precision Grinder External Name Role Phone Name, Jaspreet SELLERS Primary Care Provider [phone] Reason for Visit * Reason Comments Med Refill Encounter Details Date Type Department Care Team ([facility] st Contact Info) Description 11/29/2023 Refill [facility] MEDICINE 230 [place], [place] [phone] Name, MD Jaspreet 230 [place] [address] Social History Tobacco Use Types Packs/Day Years [...] Description 10/13/2025 9:15 AM EDT Office Visit [facility] MEDICINE [address] [place] [address] Name, MD Jaspreet [address] [place] [address] documented as of this encounter Visit Diagnoses Not on filedocumented in this encounter Additional Health Concerns Assessment Noted Time PHQ-9 Depression Total Score: 0 10/10/19 24 3:18 PM EDT documented as of this encounter Care Teams Precision Grinder External Relationship Specialty Start Date End Date Name, MD Jaspreet [address] [place] [address] PCP - General Family Medicine 08/25/15 documented as of this encounter
--- OUTSIDE RECORDS SUMMARY | 2025-07-14 12:31 | XMS_ITS | Encounter Summary ---
Author Organization [employer] Address [address] [place] [address] 7 [place] [address] Care Team Providers Care Chairman And Ceo Name Role Phone Name, Jaspreet SELLERS Primary Care Provider [phone] Reason for Visit * Reason Comments Med Refill Encounter Details Date Type Department Care Team ([facility] st Contact Info) Description 09/18/2024 Refill [facility] [address] [place], [place] [phone] Va Gordon MD [address] [place], [place] [phone] Controlled type 2 diabetes mellitus without complication, with long-term current use of insulin ([facility]) Social History Tobacco Use Types Packs/Day Years [...] Description 10/13/2025 9:15 AM EDT Office Visit [facility] [address] [place] [address] NameJaspreet MD [address] [place] [address] documented as of this encounter Visit Diagnoses Diagnosis Controlled type 2 diabetes mellitus without complication, with long-term current use of insulin (HCC) documented in this encounter Additional Health Concerns Assessment Noted Time PHQ-9 Depression Total Score: 0 10/10/19 24 3:18 PM EDT documented as of this encounter Care Teams Chairman And Ceo Relationship Specialty Start Date End Date Jaspreet Sandoval MD [address] [place] [address] PCP - General Family Medicine 08/25/15 documented as of this encounter
--- OUTSIDE RECORDS SUMMARY | 2025-07-14 12:31 | XMS_ITS | Encounter Summary ---
Author Organization [employer] Address [address] [place] [address] 7 [place] [address] Care Team Providers Care Auditing Clerk Name Role Phone Name, Jaspreet SELLERS Primary Care Provider [phone] Encounter Details Date Type Department Care Team (Late st Contact Info) Description 07/12/2022 Orders Only [facility] MEDICINE [address] [place], [place] [phone] Patience Umanzor, RN [address] [place] [address] Social History Tobacco Use Types Packs/Day Years [...] Description 10/13/2025 9:15 AM EDT Office Visit [facility] MEDICINE [address] [place] [address] Name, MD Jaspreet 230 [place] [address] documented as of this encounter Visit Diagnoses Not on filedocumented in this encounter Care Teams Auditing Clerk Relationship Specialty Start Date End Date Name, MD Jaspreet 230 [place] [address] PCP - General Family Medicine 08/25/15 documented as of this encounter
--- OUTSIDE RECORDS SUMMARY | 2025-07-14 12:31 | XMS_ITS | Encounter Summary ---
Author Organization [facility] Address [address] [place] [address] Care Team Providers Care Teasel Gig Operator Name Role Phone Name, Jaspreet SELLERS Primary Care Provider Reason for Visit * Reason Comments Med Refill Encounter Details Date Type Department Care Team (Late st Contact Info) Description 11/08/2022 Refill [facility] MEDICINE [address] [place] [address] [phone] NameJaspreet MD [address] [place] [address] [phone] Social History Tobacco Use Types Packs/Day Years [...] Description 10/13/2025 9:15 AM EDT Office Visit [facility] MEDICINE [address] [place] [address] [phone] Jaspreet Sandoval MD [address] [place] [address] [phone] documented as of this encounter Visit Diagnoses Not on filedocumented in this encounter Additional Health Concerns Assessment Noted Time PHQ-9 Depression Total Score: 0 08/04/19 23 9:31 AM EST documented as of this encounter Care Teams Teasel Gig Operator Relationship Specialty Start Date End Date Name, MD Jaspreet 230 [place] [address] PCP - General Family Medicine 08/25/15 documented as of this encounter
--- OUTSIDE RECORDS SUMMARY | 2025-07-14 12:31 | XMS_ITS | Encounter Summary ---
Author Organization [employer] Address [address] [facility] 7 [place] [address] Care Team Providers Care Soil Surveyor Name Role Phone Name, Jaspreet SELLERS Primary Care Provider [phone] Reason for Visit * Reason Comments Med Refill Encounter Details Date Type Department Care Team ([facility] st Contact Info) Description 06/13/2024 Refill [facility] MEDICINE [address] [place], [place] [phone] Cyndie Mireles FNP [address] [place], [place] [phone] Social History Tobacco Use Types Packs/Day Years [...] 9:15 AM EDT Office Visit [facility] MEDICINE [address] [place] [address] Name, MD Jaspreet [address] [place] [address] documented as of this encounter Visit Diagnoses Not on filedocumented in this encounter Additional Health Concerns Assessment Noted Time PHQ-9 Depression Total Score: 0 10/10/19 24 3:18 PM EDT documented as of this encounter Care Teams Soil Surveyor Relationship Specialty Start Date End Date Name, MD Jaspreet [address] [place] [address] PCP - General Family Medicine 08/25/15 documented as of this encounter
--- OUTSIDE RECORDS SUMMARY | 2025-07-14 12:31 | XMS_ITS | Encounter Summary ---
Author Organization [employer] Address 75 [facility] 7 [place] [address] Care Team Providers Care Education Instructor Name Role Phone Name, Jaspreet SELLERS Primary Care Provider [phone] Reason for Visit * Reason Comments Med Refill Encounter Details Date Type Department Care Team ([facility] st Contact Info) Description 09/07/2023 Refill [facility] MEDICINE 230 [place], [place] [phone] Name, MD Jaspreet [address] [place] [address] Social History Tobacco Use Types Packs/Day Years [...] Description 10/13/2025 9:15 AM EDT Office Visit [facility] MEDICINE [address] [place] [address] Name, MD Jaspreet [address] [place] [address] documented as of this encounter Visit Diagnoses Not on filedocumented in this encounter Additional Health Concerns Assessment Noted Time PHQ-9 Depression Total Score: 0 08/04/19 23 9:31 AM EST documented as of this encounter Care Teams Education Instructor Relationship Specialty Start Date End Date Name, MD Jaspreet [address] [place] [address] PCP - General Family Medicine 08/25/15 documented as of this encounter
--- OUTSIDE RECORDS SUMMARY | 2025-07-14 12:31 | XMS_ITS | Encounter Summary ---
Author Organization [employer] Address [address] [facility] 7 [place] [address] Care Team Providers Care Corn Sheller Operator Name Role Phone Name, Jaspreet SELLERS Primary Care Provider Reason for Visit * Reason Comments Med Refill Encounter Details Date Type Department Care Team ([facility] st Contact Info) Description 06/13/2024 Refill [facility] MEDICINE 230 [place], [place] [phone] Kenyetta Ann MD 230 [place], [place] [phone] Chronic low back pain, unspecified back pain [...] Description 10/13/2025 9:15 AM EDT Office Visit [facility] MEDICINE [address] [place] [address] Name, MD Jaspreet [address] [place] [address] documented as of this encounter Visit Diagnoses Diagnosis Chronic low back pain, unspecified back pain laterality, unspecified whether sciatica present documented in this encounter Additional Health Concerns Assessment Noted Time PHQ-9 Depression Total Score: 0 10/10/19 24 3:18 PM EDT documented as of this encounter Care Teams Corn Sheller Operator Relationship Specialty Start Date End Date NameJaspreet MD [address] [place] [address] PCP - General Family Medicine 08/25/15 documented as of this encounter
== END 2025-07-14 10:08 | disposition home or self-care (01) ==
LOC: HO.HHCL 10:07
PROVIDERS: PCP Internal Medicine Geriatric Medicine; Visit Provider Internal Medicine Geriatric Medicine
DX: E11.65 Type 2 diabetes mellitus with hyperglycemia (principal)
CPT/HCPCS: 36415; 80053; 80061; 82043; 82570; 85025